=== PATIENT | female | born 1990 | race Two or more races ===

== ENCOUNTER 2019-12-24 22:56 | Emergency (ER) | payer OTHER, SELFPAY ==
[2019-12-24 23:03] VITALS: PULSE 77; RESP 18; TEMP 37.3; BMI 84.8
[2019-12-24 23:15] VITALS: BP 141/78; PULSE 77; RESP 18; TEMP 37.3
--- NOTE | 2019-12-24 23:37 | ED_ITS ---
HPI - Weakness General Chief complaint: Weakness Stated complaint: SICK PERSON , COLLAPSED @ 2200 Time Seen by Provider: 12/24/19 23:10 Source: patient Mode of arrival: ambulatory History of Present Illness HPI Narrative: 29-year-old female states of generalized weakness for 1-2 days. Patient states lost sent to taste also. Denies cough denies shortness of breath denies chest pain denies nausea vomiting diarrhea. Denies fevers or chills patient states overwhelmingly weak to the point where she collapsed however as per family member did not syncopized MD Complaint: generalized weakness Onset (ago): day(s) ( 2 days) Location: generalized Severity: mild Severity scale (1-10): 2 Related Data Allergies Allergy/AdvReac Type Severity Reaction Status Date / Time morphine Allergy Mild ? Verified 12/24/19 23:10 Review of Systems Review of Systems: Constitutional : No Weight loss, No Fever, No Chills, No Night Sweats, No Fatigue, No Malaise ENT/Mouth : No Hearing loss, No Ear Pain, No Nasal Congestion, No Sinus Pain, No Hoarseness, No sore throat, No Rhinorrhea, No Swallowing Difficulty Eyes: No Eye Pain, No Swelling, No Redness, No Foreign Body, No Discharge, No Vision Changes Cardiovascular : No Chest Pain, No SOB, No Dyspnea on Exertion, No Orthopnea, No Edema, No Palpitations Respiratory : No Cough, No Sputum, No Wheezing, No Smoke Exposure, No Dyspnea Gastrointestinal : No Nausea, No Vomiting, No Diarrhea, No Constipation, No abdominal Pain, No Hematochezia, No Melena Genitourinary : no irregular bleeding, No Dysuria, No Urinary Frequency, No H ematuria, No Urinary Incontinence, No Urgency, No Flank Pain, No Urinary Flow Changes, No Hesitancy Musculoskeletal : No joint pain, positive Myalgias, No Joint Swelling Skin : No Skin Lesions, No rash Neuro : No Weakness, No Numbness, No Paresthesias, No Loss of Consciousness, No Dizziness, No Headache Psych : No Anxiety/Panic, No Depression, No SI/HI/AH/VH, No Social Issues, Heme/Lymph: No Bruising, No Bleeding,No Lymphadenopathy Endocrine : No Polyuria, No Polydipsia, No Temperature Intolerance PMF Past Medical History Medical History Hypertension Surgical History No pertinent past surgical history No pertinent past surgical history Social History Social History Smoked in Last 30 Days: No Use of substances other than those prescribed or required for medical reasons: No Advance Directives: No Advance Directives Information Provided: No Physical Exam Vital Signs: Vital Signs: Vital Signs Temp Pulse Resp BP 12/24/19 23:15 99.2 F 77 18 141/78 H 12/24/19 23:03 99.2 F 77 18 Body Mass Index 84.8 vital signs reviewed Appearance: Alert. Oriented X3. No acute distress. Eyes: Pupils equal, round and reactive to light. ENT: Pharynx normal. Neck: Normal inspection. Neck supple. No lymph nodes noted. No crepitus CVS: Normal heart rate and rhythm. Pulses normal. Normal S1 and S2 Respiratory: No respiratory distress. Breath sounds normal. No Wheezing. No rales Abdomen: Soft and nontender. No rigidity. No distention. good BS x4 Skin: Skin warm and dry. Normal skin color. Normal skin turgor. Extremities: No lower extremity edema. Neurovascular intact to all extremities. No Lacerations. No Rash Neuro: Oriented X 3. No motor deficit. No sensory deficit. Moving all extermities. No slurred speech. Course Course Course Narrative: patient feeling much improved tolerating p.o.. I discussed with her self-isolation into COVID test results come back laboratory work reviewed by me MDM - Weakness MDM Narrative Medical decision making narrative: 29-year-old female with generalized weakness myalgias, assume COVID. Laboratory work within normal limits nontoxic-appearing not hypoxic will discharge home with self-isolation Lab Data Result diagrams: 12/24/19 23:28 12/24/19 23:28 Labs: Lab Results 12/24/19 12/24/19 Range/Units 23:28 23:28 WBC 9.5 (4.8-10.8) X10*3/uL RBC 4.08 L (4.20-5.50) X10*6/uL Hgb 11.1 L (12.0-16.0) g/dl Hct 35.9 L (37-47) % MCV 88.0 (80-98) fL MCH 27.2 (27.0-33.0) pg MCHC 30.9 L (31.0-35.0) g/dl RDW 15.4 (11.0-16.0) % Plt Count 268 (160-400) X10*3/uL MPV 10.5 (9.4-12.3) fL Immature Gran % (Auto) 0.4 (0.0-0.4) % Neut % (Auto) 59.1 (45-73) % Lymph % (Auto) 28.7 (20-40) % [place] % (Auto) 9.5 (2-11) % Eos % (Auto) 2.0 (0-4) % Baso % (Auto) 0.3 (0-2) % Lymph # (Auto) 2.7 (1.2-4.9) X10*3/uL [place] # (Auto) 0.9 (0.1-1.2) X10*3/uL Eos # (Auto) 0.2 (0.0-0.4) X10*3/uL Baso # (Auto) 0.0 (0.0-0.2) X10*3/uL Abs Immat Gran (auto) 0.04 H (0.00-0.03) X10*3/uL Absolute Neuts (auto) 5.6 (2.0-8.3) X10*3/uL Absolute Nucleated RBC 0.000 (0.0-0.012) X10*3/uL Nucleated RBC % (auto) 0.0 (0.0-0.2) /100WBC Sodium 139 (135-145) mmol/L Potassium 4.5 (3.3-5.1) mmol/l Chloride 107 (96-108) mmol/L Carbon Dioxide 24 (22-29) mmol/L Anion Gap 13 (12-20) BUN 16 (9-16) mg/dL Creatinine 0.71 (0.5-1.4) mg/dL Estim Creat Clear Calc 195.8 Estimated GFR > 60 Random Glucose 87 (60-115) mg/dL Calcium 8.5 (8.4-10.2) mg/dL Total Bilirubin < 0.2 (0.0-1.0) mg/dL Direct Bilirubin < 0.2 (0.0-0.5) mg/dL AST 14 (5-31) U/L ALT 16 (0-31) U/L Alkaline Phosphatase 70 (39-117) U/L Total Protein 6.7 (6.5-8.0) g/dL Albumin 3.9 (3.5-5.0) g/dL Lipase 21 (8-78) U/L Beta HCG, Quant < 2 mIU/mL Discharge Plan Discharge Clinical Impression: Myalgia, Acute viral syndrome Patient Disposition: Home, Self-Care Instructions: Musculoskeletal Pain (ED), Viral Syndrome (ED) Additional Instructions: CDC Guidelines for home isolation: Follow these instructions until your Covid results return - Stay away from others - Limit contact with pets and animals: If you must care for a pet, wash your hands before and after interacting with them - Wear a mask if you are sick - Cover your mouth and nose with a tissue when you cough or sneeze. Dispose of tissues in a lined trash can and wash your hands immediately with soap and water for at least 20 seconds. If soap and water are not available, clean hands with alcohol-based hand manager ship that contains at least 60% alcohol. - Clean your hands often with soap and water for at least 20 seconds - Avoid touching your eyes, nose and mouth with unwashed hands - Do not share dishes, drinking glasses, cups, eating utensils, towels, or bedding with other people in your home. After using these items, wash them thoroughly with soap and water or put in the catering administrative assistant. - Clean high-touch surfaces in your isolation area ( sick room and bathroom) every day; let a caregiver clean and disinfect high-touch surfaces in other areas of the home. Clean the area or item with soap and water or another detergent if it is dirty. Then, use a household disinfectant. Seek medical attention, but call first: - Seek medical care right away if your illness is worsening (for example, if you have difficulty breathing). - Call your doctor before going in: Before going to the doctor's office or emergency room, call ahead and tell them your symptoms. They will tell you what to do. - If possible, put on a facemask before you enter the building. If you can't put on a facemask, try to keep a safe distance from other people (at least 6 feet away). This will help protect the people in the office or waiting room. - Follow care instructions from your healthcare provider and local health department: Your local health authorities will give instructions on checking your symptoms and reporting information. Emergency warning signs for COVID-19: - Difficulty breathing or shortness of breath - Persistent pain or pressure in the chest - New confusion or inability to arouse - Bluish lips or face Thank you for visiting the emergency department today. If your symptoms worsen or do not resolve completely please return to the emergency department immediately or call 911. if he have any questions please call your primary care physician Referrals: [facility] [Provider Group] - 2 days
[2019-12-24] MEDS: 0.9 % Sodium Chloride 1,000 ML 999 ML IVCONT (23:41)
[2019-12-24 23:48] LABS: MANUAL DIFF FLAG NO
[2019-12-24 23:49] LABS: Basophils Percent Auto 0.3 % (0-2); Eosinophils Absolute Auto 0.2 X10*3/uL (0.0-0.4); Hematocrit 35.9 % (37-47); Hemoglobin 11.1 g/dl (12.0-16.0); Imm Gran Abs Auto 0.04 X10*3/uL (0.00-0.03); Imm Gran Pct Auto 0.4 % (0.0-0.4); Lymphocytes Absolute Auto 2.7 X10*3/uL (1.2-4.9); Lymphocytes Percent Auto 28.7 % (20-40); Mean Corpuscular HGB Conc 30.9 g/dl (31.0-35.0); Mean Corpuscular Hemoglobin 27.2 pg (27.0-33.0); Mean Platelet Volume 10.5 fL (9.4-12.3); Monocytes Absolute Auto 0.9 X10*3/uL (0.1-1.2); Monocytes Percent Auto 9.5 % (2-11); Neutrophils Absolute Auto 5.6 X10*3/uL (2.0-8.3); Neutrophils Percent Auto 59.1 % (45-73); Platelet Count 268 X10*3/uL (160-400); Red Blood Count 4.08 X10*6/uL (4.20-5.50); Red Cell Distribution Width 15.4 % (11.0-16.0); White Blood Count 9.5 X10*3/uL (4.8-10.8)
[2019-12-24] MEDS: ondansetron HCL 4 MG/2 ML VIAL IVPUSH (23:51)
[2019-12-24] MEDS: Ketorolac Tromethamine 30 MG/ML VIAL IM (23:51)
[2019-12-25 00:35] LABS: Alanine Aminotransferase 16 U/L (0-31); Albumin Level 3.9 g/dL (3.5-5.0); Alkaline Phosphatase 70 U/L (39-117); Anion Gap 13 (12-20); Aspartate Amino Transferase 14 U/L (5-31); Bilirubin Direct < 0.2 mg/dL (0.0-0.5); Bilirubin Total < 0.2 mg/dL (0.0-1.0); Blood Urea Nitrogen 16 mg/dL (9-16); Calcium 8.5 mg/dL (8.4-10.2); Carbon Dioxide 24 mmol/L (22-29); Chloride 107 mmol/L (96-108); Creatinine Clr Calc Pharmacy 195.8; Estimated Glomerular Filt Rate > 60; Glucose Random 87 mg/dL (60-115); Lipase 21 U/L (8-78); Potassium 4.5 mmol/l (3.3-5.1); Sodium 139 mmol/L (135-145); Total Protein 6.7 g/dL (6.5-8.0)
[2019-12-25 00:41] LABS: HCG Quantitative < 2 mIU/mL
== END 2019-12-25 01:37 | disposition home or self-care (01) ==
PROVIDERS: Emergency Provider Emergency Medicine
DX: B34.9 Viral infection, unspecified (principal); M79.10 Myalgia, unspecified site; Z20.828 Contact with and (suspected) exposure to other viral communicable diseases
CPT/HCPCS: 36415; 80048; 80076; 83690; 84702; 85025; 87635; 96361; 96372; 96374; 99284; J1885; J2405

== ENCOUNTER 2021-01-02 13:10 | Emergency (ER) | payer OTHER, SELFPAY ==
[2021-01-02 13:24] VITALS: BP 144/106; PULSE 58; RESP 16; TEMP 36.5; O2SAT 99; BMI 52.7
[2021-01-02 14:00] LABS: IDNOW Serial# 08D9AD1C; Strep A Nucleic Acid Negative (Negative)
[2021-01-02 14:03] LABS: COVID-19 Test Negative (Negative)
--- NOTE | 2021-01-02 14:47 | ED.URI ---
HPI - URI/Sore Throat General Chief Complaint: Upper Respiratory Symptoms Stated Complaint: body aches sore throat Time Seen by Provider: 01/02/21 14:05 Source: patient Mode of arrival: ambulatory Limitations: no limitations History of Present Illness MD elicited complaint: cough, sore throat and other (Body aches, loss of taste and smell exposure to COVID) Onset (ago): day(s) (Three days ago) Consistency: constant Able to tolerate fluids by mouth: Yes Exacerbating factors: swallowing Relieving factors: nothing Context: sick contacts Associated symptoms: chills, myalgias, headache, sore throat and cough Treatments prior to arrival: none Related Data Previous Rx's Medication Instructions Recorded acetaminophen 500 mg tablet 1,000 mg PO QID PRN #14 tab 01/02/21 (Tylenol Extra Strength) azithromycin 250 mg tablet See Rx Instructions .ROUTE 01/02/21 .COMPLEX #6 tab cyclobenzaprine 10 mg tablet 10 mg PO Q8H PRN #14 tab 01/02/21 ibuprofen 800 mg tablet 800 mg PO Q8H PRN #14 tab 01/02/21 Allergies Allergy/AdvReac Type Severity Reaction Status Date / Time morphine Allergy Mild ? Verified 01/02/21 13:24 Review of Systems Review of Systems: Constitutional : No Weight loss, No Fever, + Chills, No Night Sweats, + Fatigue, + Malaise ENT/Mouth : No Hearing loss, No Ear Pain, No Nasal Congestion, No Sinus Pain, No Hoarseness, + sore throat, No Rhinorrhea, No Swallowing Difficulty Eyes: No Eye Pain, No Swelling, No Redness, No Foreign Body, No Discharge, No Vision Changes Cardiovascular : No Chest Pain, No SOB, No Dyspnea on Exertion, No Orthopnea, No Edema, No Palpitations Respiratory : + Cough, No Sputum, No Wheezing, No Smoke Exposure, No Dyspnea Gastrointestinal : No Nausea, No Vomiting, No Diarrhea, No Constipation, No abdominal Pain, No Hematochezia, No Melena Genitourinary : no irregular bleeding, No Dysuria, No Urinary Frequency, No Hematuria, No Urinary Incontinence, No Urgency, No Flank Pain, No Urinary Flow Changes, No Hesitancy Musculoskeletal : No joint pain, + Myalgias, No Joint Swelling Skin : No Skin Lesions, No rash Neuro : No Weakness, No Numbness, No Paresthesias, No Loss of Consciousness, No Dizziness, No Headache Psych : No Anxiety/Panic, No Depression, No SI/HI/AH/VH, No Social Issues, Heme/Lymph: No Bruising, No Bleeding,No Lymphadenopathy Endocrine : No Polyuria, No Polydipsia, No Temperature Intolerance Yes all other systems are reviewed and are negative [facility] Past Medical History Attestation statement: The following information was validated with the patient. Medical History Hypertension Surgical History No pertinent past surgical history No pertinent past surgical history Social History Social History Advance Directives: No Advance Directives Information Provided: No Physical Exam Vital Signs: Vital Signs: Last Vital Signs Temp 97.7 F 01/02/21 13:24 Pulse 58 01/02/21 13:24 Resp 16 01/02/21 13:24 BP 144/106 H 01/02/21 13:24 Pulse Ox 99 01/02/21 13:24 Body Mass Index 52.7 vital signs have been reviewed as normal and appeared to be correct. Blood pressure hypertensive at 144/106 Heart rate normal. Respiration rate normal. Temperature normal. Oxygen saturation normal. Appearance: Alert. Oriented X3. No acute distress. Head: Normal external exam. Normocephalic. Atraumatic. Eyes: PERRLA. EOMI. Conjunctiva and sclera normal. Eyelids normal. ENT: EAC normal. TM's Normal. Pharynx normal. Uvula midline. Moist mucous membranes. No trismus noted. No drooling noted. No muffled voice noted. Neck: Normal inspection. Neck supple. FROM. No adenopathy. Thyroid Normal. No meningeal signs. No neck mass noted. CVS: Normal heart rate and rhythm. Heart sound normal. Pulses normal throughout. No murmurs/rales/gallops. Respiratory: No respiratory distress. Painless inspiration. Breath sounds normal. No wheezes/rales/rhonchi noted. Chest nontender. No accessory muscle usage noted or decreased air movement noted. Back: Full range of motion noted. No rashes/lesion/induration/fluctuance or signs of infection noted. Skin: Skin warm and dry. Normal skin color. Normal skin turgor. No rashes/lesions/lacerations noted. Extremities: Extremities exhibit normal range of motion. Extremities nontender. Neuro: Oriented X 3. No motor deficit. No sensory deficit. Reflexes normal. Normal steady gait. No focal neuro deficits noted. Vascular: + radial pulses Normal cap refill. No cyanosis noted to upper extremity nails Course Course Course Narrative: 30-year-old female presenting to the ED with URI symptoms for the past few days worse today. 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 Denies any other symptoms complaints or concerns at this time. Patient's rapid COVID was negative and her rapid strep. 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 Patient understands agrees with this plan. MDM - URI/Sore Throat Medical Records Attestation: I reviewed the patient's medical records. Lab Data Attestation: I reviewed the patient's lab results. Labs: Lab Results 01/02/21 01/02/21 Range/Units 13:43 13:43 COVID-19 ([place]) Negative (Negative) COVID-19 Clin Com See Note S. pyogenes GrpA MAULIK Negative (Negative) Discharge Plan Discharge Clinical Impression: Upper respiratory infection Patient Disposition: Home, Self-Care Instructions: Upper Respiratory Infection (ED) Additional Instructions: Based on your symptoms and history we have sent a COVID-19. Although your RESULT IS PENDING at this time. RESULTS should return within 2-4 hours. At this time you will be contacted with either NEGATIVE OR POSITIVE results. -Please wait until we contact you for your results. At this time you will be okay for discharge. Please plan for self quarantine for up to 14 days. Do not expose yourself to others. You may not go to work. If testing does come back negative you may return to activities as long as you are no longer having any symptoms for at least 3 days. Please continue to follow cold instructions and wash your hands frequently. You may take Tylenol as directed on the bottle for pain or fever. Patient seen in the emergency department on 01/02/2021 and should be excused from work until negative test results AND until 72 hours without any symptoms AND at least 10 days have passed since symptoms first appeared or since last exposure to COVID-19 positive patient CDC Guidelines for home isolation: - Stay away from others - WEAR A MASK if you are sick AND STAY HOME - Cover your mouth and nose with a tissue when you cough or sneeze. Dispose of tissues in a lined trash can and wash your hands immediately with soap and water for at least 20 seconds. If soap and water are not available, clean hands with alcohol-based hand juice bar team member that contains at least 60% alcohol. - Clean your hands often with soap and water for at least 20 seconds - Avoid touching your eyes, nose and mouth with unwashed hands - Do not share dishes, drinking glasses, cups, eating utensils, towels, or bedding with other people in your home. After using these items, wash them thoroughly with soap and water or put in the dental instrument maker. - Clean high-touch surfaces in your isolation area ( sick room and bathroom) every day; let a caregiver clean and disinfect high-touch surfaces in other areas of the home. Clean the area or item with soap and water or another detergent if it is dirty. Then, use a household disinfectant. - Limit contact with pets and animals: If you must care for a pet, wash your hands before and after interacting with them). Prescriptions: New cyclobenzaprine 10 mg tablet 10 mg PO Q8H PRN (Reason: Muscle spasm) Qty: 14 RF: 0 azithromycin 250 mg tablet See Rx Instructions .ROUTE .COMPLEX Qty: 6 RF: 0 ibuprofen 800 mg tablet 800 mg PO Q8H PRN (Reason: pain) Qty: 14 RF: 0 acetaminophen [Tylenol Extra Strength] 500 mg tablet 1,000 mg PO QID PRN (Reason: fever or pain) Qty: 14 RF: 0 Referrals: Physician,None [Primary Care Provider] - 2 days (your pcp) Stand Alone Forms: Work/School Release
[2021-01-02 14:55] LABS: Adenovirus PCR Not Detected (Not Detect.); Bordetella parapertussis PCR Not Detected (Not Detect.); Bordetella pertussis PCR Not Detected (Not Detect.); Chlamydia pneumoniae PCR Not Detected (Not Detect.); Coronavirus 229E PCR Not Detected (Not Detect.); Coronavirus HKU1 PCR Not Detected (Not Detect.); Coronavirus NL63 PCR Not Detected (Not Detect.); Coronavirus OC43 PCR Not Detected (Not Detect.); Human metapneumovirus PCR Not Detected (Not Detect.); Influenza A PCR Not Detected (Not Detect.); Influenza B PCR Not Detected (Not Detect.); Mycoplasma pneumoniae PCR Not Detected (Not Detect.); Parainfluenza 1 PCR Not Detected (Not Detect.); Parainfluenza 2 PCR Not Detected (Not Detect.); Parainfluenza 3 PCR Not Detected (Not Detect.); Parainfluenza 4 PCR Not Detected (Not Detect.); RSV PCR Not Detected (Not Detect.); SARS-CoV-2 PCR Not Detected (Not Detect.)
[2021-01-03 08:04] LABS: Rhino/Enterovirus PCR Detected (Not Detect.)
== END 2021-01-02 16:25 | disposition home or self-care (01) ==
PROVIDERS: Physician Assistant Medical; Emergency Provider Emergency Medicine Emergency Medical Services
DX: J06.9 Acute upper respiratory infection, unspecified (principal); I10 Essential (primary) hypertension; Z20.822 Contact with and (suspected) exposure to COVID-19
CPT/HCPCS: 0241U; 36415; 87633; 87635; 87651; 99283

== ENCOUNTER 2021-01-03 00:45 | Emergency (ER) | payer OTHER, SELFPAY ==
[2021-01-03] VITALS (8 sets, daily range): BP systolic 114–159; BP diastolic 57–94; PULSE 63–88; RESP 18–22; TEMP 36.8–37.1; O2SAT 95–100; BMI 40.4
--- NOTE | 2021-01-03 | ECG_ITS ---
Test Reason : chest pain Blood Pressure : / mmHG Vent. Rate : 089 BPM Atrial Rate : 089 BPM P-R Int : 144 ms QRS Dur : 082 ms QT Int : 390 ms P-R-T Axes : 053 012 023 degrees QTc Int : 474 ms Normal sinus rhythm Normal ECG No previous ECGs available Referred By: Danilo Bucio Electronically Signed By:ABBY MELCHOR MD
--- NOTE | ~2021-01-03 | XR_ITS ---
EXAMINATION: XR CHEST CLINICAL INFORMATION: Shortness of breath COMPARISON: None TECHNIQUE: Frontal view of the chest was obtained. FINDINGS: The lungs are mildly hypoinflated and appear clear without focal consolidation. No evidence of pneumothorax, pleural effusion, or pulmonary edema. The cardiomediastinal contour is unremarkable. No acute osseous findings are seen. XR/XR chest 1V IMPRESSION: No acute cardiopulmonary findings.
--- NOTE | ~2021-01-03 | CT_ITS ---
EXAMINATION: CT SOFT TISSUE NECK WITHOUT CONTRAST CLINICAL INFORMATION: Stridor, throat pain COMPARISON: None TECHNIQUE: Helical imaging was performed in the axial plane with generation of coronal and sagittal reformatted images. This CT examination was performed using dose optimization techniques as appropriate, variously including the following: *Automated exposure control *Adjustment of mA and/or kV according to patient size (this includes techniques or standardized protocols for targeted exams where dose is matched to indication/reason for exam; i.e. extremities or head) *Use of iterative reconstruction technique DLP: 627 mGy-cm FINDINGS: There is a thickened appearance of the vocal folds. Epiglottis appears unremarkable. No significant cervical adenopathy is identified. The parotid glands are homogeneous in attenuation. The submandibular glands are normal. No contour abnormality is seen within the oral cavity or pharyngeal mucosal space. The parapharyngeal fat is preserved. No extra mucosal soft tissue mass or fluid collection is seen, though assessment for this is somewhat limited without intravenous contrast. No retropharyngeal fluid collection is seen. The thyroid gland is normal. The superior mediastinum is unremarkable. The lung apices are clear. The mastoid air cells and visualized portions of the paranasal sinuses are well-aerated. The temporomandibular joints are normal. No osseous abnormalities are seen. The imaged portions of the brain parenchyma are unremarkable. CT/CT soft tissue neck wo con IMPRESSION: Thickened appearance of the vocal folds, suggesting laryngitis in the proper clinical setting. No additional acute findings identified.
--- NOTE | 2021-01-03 01:51 | PC.NURSE ---
This RN asked Munir Alvarenga RN to contact RT to notify of neb orders. Munir attempted to contact RT twice unsuccessfully. This RN to call RT again
--- NOTE | 2021-01-03 01:53 | ED_ITS ---
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-19 in 09/02 last time she saw a COVID patient was 2 weeks ago, patient complaining of pain in the throat difficulty in breathing, dry cough for last 4 days was seen here earlier yesterday COVID test was negative, rapid strep was also negative, lab workup stable comes back because of increased difficulty in breathing wheezing obviously saturating 98% arrival patient was given Zithromax Related Data Previous Rx's Medication Instructions Recorded acetaminophen 500 mg tablet 1,000 mg PO QID PRN #14 tab 01/02/21 (Tylenol Extra Strength) azithromycin 250 mg tablet See Rx Instructions .ROUTE 01/02/21 .COMPLEX #6 tab cyclobenzaprine 10 mg tablet 10 mg PO Q8H PRN #14 tab 01/02/21 ibuprofen 800 mg tablet 800 mg PO Q8H PRN #14 tab 01/02/21 cefuroxime axetil 500 mg tablet 500 mg PO BID #20 tab 01/03/21 codeine 10 mg-guaifenesin 100 mg/5 10 ml PO Q4-6H PRN #237 ml 01/03/21 mL oral liquid prednisone 20 mg tablet 40 mg PO DAILY #10 tab 01/03/21 Allergies Allergy/AdvReac Type Severity Reaction Status Date / Time morphine Allergy Mild ? Verified 01/03/21 02:08 Review of Systems Review of Systems: Yes all other systems are reviewed and are negative [facility] Past Medical History Medical History Hypertension Surgical History No pertinent past surgical history No pertinent past surgical history Social History Social History Advance Directives: No Advance Directives Information Provided: No Patient : No Physical Exam Vital Signs: Vital Signs: Last Vital Signs Temp 98.7 F 01/03/21 06:00 Pulse 78 01/03/21 06:00 Resp 20 01/03/21 06:00 BP 114/60 01/03/21 06:00 Pulse Ox 95 01/03/21 06:00 Body Mass Index 40.4 Appearance: Alert. Oriented X3. In moderate distress Eyes: No pallor or icterus HEENT: Pharynx normal. Oral Mucosa moist stridor++ Neck: Normal inspection. Neck supple. CVS: Normal heart rate and rhythm. Pulses normal. Respiratory: No respiratory distress. Equal air entry bilateral, bilateral wheezing and rhonchi and no crackles Abdomen: Soft and nontender. Bowel sounds are present, no mass palpable, no CVA tenderness Skin: Skin warm and dry. Normal skin color. Normal skin turgor. Extremities: No calf tenderness no edema neuro: Alert and oriented x3 MDM - URI/Sore Throat MDM Narrative Medical decision making narrative: Patient has significant distress and able to speak because of pain voice was muffled had inspiratory stridor. CT scan of the neck done which showed normal epiglotis , likely laryngitis. patient's symptoms improved after IV hydration, racemic epinephrine, IV Rocephin, steroids able to speak well now stridor/wheezing improved will discharge patient home on steroids and Ceftin advised to continue Zithromax Discharge Plan Discharge Clinical Impression: Laryngitis Patient Disposition: Home, Self-Care Instructions: Laryngitis (ED) Additional Instructions: Rest to your throat Take antibiotic as prescribed along with continue Zithromax Prednisone as prescribed Saline gargles Follow with PCP if not better Prescriptions: New prednisone 20 mg tablet 40 mg PO DAILY Qty: 10 RF: 0 codeine-guaifenesin 10-100 mg/5 mL liquid 10 ml PO Q4-6H PRN (Reason: cough) Qty: 237 RF: 0 cefuroxime axetil 500 mg tablet 500 mg PO BID Qty: 20 RF: 0 No Action cyclobenzaprine 10 mg tablet 10 mg PO Q8H PRN (Reason: Muscle spasm) Qty: 14 RF: 0 azithromycin 250 mg tablet See Rx Instructions .ROUTE .COMPLEX Qty: 6 RF: 0 ibuprofen 800 mg tablet 800 mg PO Q8H PRN (Reason: pain) Qty: 14 RF: 0 acetaminophen [Tylenol Extra Strength] 500 mg tablet 1,000 mg PO QID PRN (Reason: fever or pain) Qty: 14 RF: 0
[2021-01-03] MEDS: Magnesium Sulfate/H2O 2 GM/50 ML PIGGYBACK IV (02:02)
[2021-01-03] MEDS: methylPREDNISolone Sod Succ 125 MG/2 ML VIAL IVPUSH (02:02)
[2021-01-03] MEDS: Albuterol/Iprat 2.5/0.5MG 3 ML AMPUL.NEB INHALE (02:06)
[2021-01-03] MEDS: Albuterol Sulfate (0.083%) 2.5 MG/3 ML VIAL.NEB 5 MG INHALE (02:06)
--- NOTE | 2021-01-03 02:44 | PC.NURSE ---
This RN to bedside to reassess. Pt removes neb mask and lurches forward. Pt not answering questions for this RN. Pt's S/O at bedside states chest pain! she's having chest pain! 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 Pt's mag infusion complete. This RN notifies Dr Siu, this RN requests EKG. This RN brings EKG machine to bedside. Pt found ripping off gown, complaining of CP and persistent SOB. Dr Siu made aware, to bedside. Per Dr Siu, pt to have CT of throat to assess swelling. EKG obtained.
--- NOTE | 2021-01-03 02:58 | PC.NURSE ---
Pt did not complete the initial albuterol neb tx. Dr Siu aware that pt rec'd ~40 minutes of hour long tx, states it's OK, I'm going to change her medication order. Dr Siu ordered racemic epi, RT made aware. Pt requested to ambulate to bathroom. Pt ambulated with steady gait, returned to stretcher without incidence. Pt VSS on RA upon return to room, O2 sat 97% on RA.
--- NOTE | 2021-01-03 03:10 | PC.NURSE ---
RT at bedside, administering racemic epi neb
[2021-01-03] MEDS: Racepinephrine HCL 0.5 ML VIAL.NEB INHALE (03:13)
[2021-01-03] MEDS: dexAMETHasone sod phosphate 10 MG/ML VIAL IVPUSH (03:44)
--- NOTE | 2021-01-03 04:39 | PC.NURSE ---
Pt with continued reports of chest pressure /. Pt also reports I feel like I'm having some trouble swallowing. Upon clarification, pt reports it hurts to swallow. Pt remains on night monitor, VSS. Pt also reports her hands feel swollen. Dr Siu made aware.
[2021-01-03] MEDS: cefTRIAXone sodium 1 GM in 0.9 % Sodium Chloride 50 ML IV (04:55)
== END 2021-01-03 06:46 | disposition home or self-care (01) ==
PROVIDERS: Emergency Provider Internal Medicine
DX: J04.0 Acute laryngitis (principal); R06.02 Shortness of breath; Z79.899 Other long term (current) drug therapy; Z20.822 Contact with and (suspected) exposure to COVID-19
CPT/HCPCS: 70490; 71045; 93005; 94640; 94644; 96365; 96367; 96375; 99284; J0696; J1100; J2930; J3475

== ENCOUNTER 2021-01-10 08:55 | Emergency (ER) | payer OTHER, SELFPAY ==
[2021-01-10 09:20] VITALS: BP 131/87; PULSE 85; RESP 19; TEMP 36.6; O2SAT 100; BMI 40.4
--- NOTE | 2021-01-10 10:46 | ED_ITS ---
HPI - Abdominal Pain General Chief Complaint: Abdominal Pain Stated Complaint: sore throat, abd pain, diarrhea Time Seen by Provider: 01/10/21 10:35 Source: patient Mode of arrival: ambulatory Limitations: no limitations History of Present Illness HPI narrative: Patient comes emergency room complaining of diarrhea. Patient states it started approximately 4-5 days ago. Patient states she was seen here 8 days ago, prescribed cefuroxime. For the last 5 days, patient has been having multiple episodes of diarrhea per day, abdominal cramping, no nausea or vomiting. Denies fever chills, continues having sore throat Related Data Previous Rx's Medication Instructions Recorded acetaminophen 500 mg tablet 1,000 mg PO QID PRN #14 tab 01/02/21 (Tylenol Extra Strength) azithromycin 250 mg tablet See Rx Instructions .ROUTE 01/02/21 .COMPLEX #6 tab cyclobenzaprine 10 mg tablet 10 mg PO Q8H PRN #14 tab 01/02/21 ibuprofen 800 mg tablet 800 mg PO Q8H PRN #14 tab 01/02/21 cefuroxime axetil 500 mg tablet 500 mg PO BID #20 tab 01/03/21 codeine 10 mg-guaifenesin 100 mg/5 10 ml PO Q4-6H PRN #237 ml 01/03/21 mL oral liquid prednisone 20 mg tablet 40 mg PO DAILY #10 tab 01/03/21 Allergies Allergy/AdvReac Type Severity Reaction Status Date / Time morphine Allergy Mild ? Verified 01/03/21 02:08 Review of Systems Review of Systems Constitutional : No Weight loss, No Fever, No Chills, No Night Sweats, No Fatigue, No Malaise ENT/Mouth : No Hearing loss, No Ear Pain, No Nasal Congestion, No Sinus Pain, No Hoarseness, complaining of sore throat, No Rhinorrhea, No Swallowing Difficulty Eyes: No Eye Pain, No Swelling, No Redness, No Foreign Body, No Discharge, No Vision Changes Cardiovascular : No Chest Pain, No SOB, No Dyspnea on Exertion, No Orthopnea, No Edema, No Palpitations Respiratory : No Cough, No Sputum, No Wheezing, No Smoke Exposure, No Dyspnea Gastrointestinal : No Nausea, No Vomiting, complaining of diarrhea No Constipation, complaining of diffuse abdominal cramping before having diarrhea, No Hematochezia, No Melena Genitourinary : no irregular bleeding, No Dysuria, No Urinary Frequency, No Hematuria, No Urinary Incontinence, No Urgency, No Flank Pain, No Urinary Flow Changes, No Hesitancy Musculoskeletal : No joint pain, No Myalgias, No Joint Swelling Skin : No Skin Lesions, No rash Neuro : No Weakness, No Numbness, No Paresthesias, No Loss of Consciousness, No Dizziness, No Headache Psych : No Anxiety/Panic, No Depression, No SI/HI/AH/VH, No Social Issues, Heme/Lymph: No Bruising, No Bleeding,No Lymphadenopathy Endocrine : No Polyuria, No Polydipsia, No Temperature Intolerance Physical Exam Vital Signs: Vital Signs: Last Vital Signs Temp 98 F 01/10/21 09:20 Pulse 71 01/10/21 12:00 Resp 16 01/10/21 12:00 BP 106/69 01/10/21 12:00 Pulse Ox 99 01/10/21 12:00 Body Mass Index 40.4 Const: Other: Appearance: Alert. Oriented X3. No acute distress. Eyes: Pupils equal, round and reactive to light. ENT: Pharynx normal. Neck: Normal inspection. Neck supple. No lymph nodes noted. No crepitus CVS: Normal heart rate and rhythm. Pulses normal. Normal S1 and S2 Respiratory: No respiratory distress. Breath sounds normal. No Wheezing. No rales Abdomen: Soft and nontender. No rigidity. No distention. good BS x4 Skin: Skin warm and dry. Normal skin color. Normal skin turgor. Extremities: No lower extremity edema. No lower extremity edema. No Lacerations. No Rash Neuro: Oriented X 3. No motor deficit. No sensory deficit. Moving all extermities. No slurred speech. Course Course Course Narrative: Patient feels better, patient has not had any bowel movement. White blood cell count within normal limits, electrolytes within normal limits. Patient likely having a viral syndrome. Unlikely that patient has C diff MDM - Abdominal Pain Lab Data Result diagrams: 01/10/21 11:21 01/10/21 11:21 Labs: Lab Results 01/10/21 01/10/21 01/10/21 Range/Units 11:21 11:21 11:21 WBC 10.2 (4.8-10.8) X10*3/uL RBC 4.09 L (4.20-5.50) X10*6/uL Hgb 10.7 L (12.0-16.0) g/dl Hct 34.4 L (37-47) % MCV 84.1 (80-98) fL MCH 26.2 L (27.0-33.0) pg MCHC 31.1 (31.0-35.0) g/dl RDW 14.6 (11.0-16.0) % Plt Count 309 (160-400) X10*3/uL MPV 10.1 (9.4-12.3) fL Immature Gran % (Auto) 0.6 H (0.0-0.4) % Neut % (Auto) 65.0 (45-73) % Lymph % (Auto) 24.0 (20-40) % [place] % (Auto) 7.4 (2-11) % Eos % (Auto) 2.6 (0-4) % Baso % (Auto) 0.4 (0-2) % Lymph # (Auto) 2.5 (1.2-4.9) X10*3/uL [place] # (Auto) 0.8 (0.1-1.2) X10*3/uL Eos # (Auto) 0.3 (0.0-0.4) X10*3/uL Baso # (Auto) 0.0 (0.0-0.2) X10*3/uL Abs Immat Gran (auto) 0.06 H (0.00-0.03) X10*3/uL Absolute Neuts (auto) 6.6 (2.0-8.3) X10*3/uL Absolute Nucleated RBC 0.000 (0.0-0.012) X10*3/uL Nucleated RBC % (auto) 0.0 (0.0-0.2) /100WBC Sodium 141 (135-145) mmol/L Potassium 4.3 (3.3-5.1) mmol/L Chloride 105 (96-108) mmol/L Carbon Dioxide 29 (22-29) mmol/L Anion Gap 11 L (12-20) BUN 15 (9-16) mg/dL Creatinine 0.71 (0.5-1.4) mg/dL Estim Creat Clear Calc 118.6 Estimated GFR > 60 Random Glucose 93 (60-115) mg/dL Calcium 9.1 D (8.4-10.2) mg/dL Total Bilirubin 0.2 (0.0-1.0) mg/dL Direct Bilirubin < 0.2 (0.0-0.5) mg/dL AST 16 (5-31) U/L ALT 20 (0-31) U/L Alkaline Phosphatase 87 D (39-117) U/L Total Protein 6.9 (6.5-8.0) g/dL Albumin 4.0 (3.5-5.0) g/dL Urine Color Urine Appearance Urine pH (5.0-8.0) Ur Specific [place] (1.005-1.025) Urine Protein (NEG-TRACE) MG/DL Urine Glucose (UA) (NEG) MG/DL Urine Ketones (NEG) MG/DL Urine Blood (NEG) Urine Nitrite (NEG) Ur Leukocyte Esterase (NEG) COVID-19 ([facility]) (Negative) COVID-19 Clin Com S. pyogenes GrpA MAULIK Negative (Negative) 01/10/21 01/10/21 Range/Units 11:21 13:16 WBC (4.8-10.8) X10*3/uL RBC (4.20-5.50) X10*6/uL Hgb (12.0-16.0) g/dl Hct (37-47) % MCV (80-98) fL MCH (27.0-33.0) pg MCHC (31.0-35.0) g/dl RDW (11.0-16.0) % Plt Count (160-400) X10*3/uL MPV (9.4-12.3) fL Immature Gran % (Auto) (0.0-0.4) % Neut % (Auto) (45-73) % Lymph % (Auto) (20-40) % [place] % (Auto) (2-11) % Eos % (Auto) (0-4) % Baso % (Auto) (0-2) % Lymph # (Auto) (1.2-4.9) X10*3/uL [place] # (Auto) (0.1-1.2) X10*3/uL Eos # (Auto) (0.0-0.4) X10*3/uL Baso # (Auto) (0.0-0.2) X10*3/uL Abs Immat Gran (auto) (0.00-0.03) X10*3/uL Absolute Neuts (auto) (2.0-8.3) X10*3/uL Absolute Nucleated RBC (0.0-0.012) X10*3/uL Nucleated RBC % (auto) (0.0-0.2) /100WBC Sodium (135-145) mmol/L Potassium (3.3-5.1) mmol/L Chloride (96-108) mmol/L Carbon Dioxide (22-29) mmol/L Anion Gap (12-20) BUN (9-16) mg/dL Creatinine (0.5-1.4) mg/dL Estim Creat Clear Calc Estimated GFR Random Glucose (60-115) mg/dL Calcium (8.4-10.2) mg/dL Total Bilirubin (0.0-1.0) mg/dL Direct Bilirubin (0.0-0.5) mg/dL AST (5-31) U/L ALT (0-31) U/L Alkaline Phosphatase (39-117) U/L Total Protein (6.5-8.0) g/dL Albumin (3.5-5.0) g/dL Urine Color YELLOW Urine Appearance CLEAR Urine pH 6.0 (5.0-8.0) Ur Specific [place] 1.020 (1.005-1.025) Urine Protein NEG (NEG-TRACE) MG/DL Urine Glucose (UA) NEG (NEG) MG/DL Urine Ketones NEG (NEG) MG/DL Urine Blood NEG (NEG) Urine Nitrite NEG (NEG) Ur Leukocyte Esterase NEG (NEG) COVID-19 ([place]) Negative (Negative) COVID-19 Clin Com See Note S. pyogenes GrpA MAULIK (Negative) Discharge Plan Discharge Clinical Impression: Diarrhea Qualifiers: Diarrhea type: unspecified type Qualified Code(s): R19.7 - Diarrhea, unspec ified Patient Disposition: Home, Self-Care Instructions: Acute Diarrhea (ED) Additional Instructions: Please follow-up with your primary care physician tomorrow. If you have any worsening or new symptoms, please return to the emergency room or call 911 Prescriptions: No Action cyclobenzaprine 10 mg tablet 10 mg PO Q8H PRN (Reason: Muscle spasm) Qty: 14 RF: 0 azithromycin 250 mg tablet See Rx Instructions .ROUTE .COMPLEX Qty: 6 RF: 0 ibuprofen 800 mg tablet 800 mg PO Q8H PRN (Reason: pain) Qty: 14 RF: 0 acetaminophen [Tylenol Extra Strength] 500 mg tablet 1,000 mg PO QID PRN (Reason: fever or pain) Qty: 14 RF: 0 prednisone 20 mg tablet 40 mg PO DAILY Qty: 10 RF: 0 codeine-guaifenesin 10-100 mg/5 mL liquid 10 ml PO Q4-6H PRN (Reason: cough) Qty: 237 RF: 0 cefuroxime axetil 500 mg tablet 500 mg PO BID Qty: 20 RF: 0 PMFSH Past Medical History Medical History Hypertension Surgical History No pertinent past surgical history No pertinent past surgical history Social History Social History Advance Directives: No Advance Directives Information Provided: Yes Patient : No
[2021-01-10] MEDS: 0.9 % Sodium Chloride 1,000 ML 999 ML IVCONT (11:22)
[2021-01-10 11:25] LABS: MANUAL DIFF FLAG NO
[2021-01-10 11:35] LABS: Basophils Percent Auto 0.4 % (0-2); Eosinophils Absolute Auto 0.3 X10*3/uL (0.0-0.4); Eosinophils Percent Auto 2.6 % (0-4); Hematocrit 34.4 % (37-47); Hemoglobin 10.7 g/dl (12.0-16.0); Imm Gran Abs Auto 0.06 X10*3/uL (0.00-0.03); Imm Gran Pct Auto 0.6 % (0.0-0.4); Lymphocytes Absolute Auto 2.5 X10*3/uL (1.2-4.9); Mean Corpuscular HGB Conc 31.1 g/dl (31.0-35.0); Mean Corpuscular Hemoglobin 26.2 pg (27.0-33.0); Mean Corpuscular Volume 84.1 fL (80-98); Mean Platelet Volume 10.1 fL (9.4-12.3); Monocytes Absolute Auto 0.8 X10*3/uL (0.1-1.2); Monocytes Percent Auto 7.4 % (2-11); Neutrophils Absolute Auto 6.6 X10*3/uL (2.0-8.3); Platelet Count 309 X10*3/uL (160-400); Red Blood Count 4.09 X10*6/uL (4.20-5.50); Red Cell Distribution Width 14.6 % (11.0-16.0); White Blood Count 10.2 X10*3/uL (4.8-10.8)
[2021-01-10 11:43] LABS: Alanine Aminotransferase 20 U/L (0-31); Alkaline Phosphatase 87 U/L (39-117); Anion Gap 11 (12-20); Aspartate Amino Transferase 16 U/L (5-31); Bilirubin Direct < 0.2 mg/dL (0.0-0.5); Bilirubin Total 0.2 mg/dL (0.0-1.0); Blood Urea Nitrogen 15 mg/dL (9-16); Calcium 9.1 mg/dL (8.4-10.2); Carbon Dioxide 29 mmol/L (22-29); Chloride 105 mmol/L (96-108); Creatinine Clr Calc Pharmacy 118.6; Estimated Glomerular Filt Rate > 60; Glucose Random 93 mg/dL (60-115); Potassium 4.3 mmol/L (3.3-5.1); Sodium 141 mmol/L (135-145); Total Protein 6.9 g/dL (6.5-8.0)
[2021-01-10 11:46] LABS: COVID-19 Test Negative (Negative); IDNOW Serial# 9DD0AD1C; Strep A Nucleic Acid Negative (Negative)
[2021-01-10 12:00] VITALS: BP 106/69; PULSE 71; RESP 16; O2SAT 99
[2021-01-10 13:26] LABS: Appearance Urine CLEAR; Color Urine YELLOW; Glucose Urine UA NEG (NEG); Leukocyte Esterase Urine NEG (NEG); Nitrite Urine NEG (NEG); Urine Blood NEG (NEG); Urine Ketones NEG (NEG); Urine Protein NEG (NEG-TRACE)
== END 2021-01-10 14:13 | disposition home or self-care (01) ==
PROVIDERS: Emergency Provider Emergency Medicine
DX: R19.7 Diarrhea, unspecified (principal); J02.9 Acute pharyngitis, unspecified; I10 Essential (primary) hypertension; Z20.822 Contact with and (suspected) exposure to COVID-19
CPT/HCPCS: 36415; 80048; 80076; 81003; 85025; 87635; 87651; 96360; 99283; 99284

== ENCOUNTER 2021-04-19 20:16 | Emergency (ER) | payer OTHER, SELFPAY ==
[2021-04-19 20:32] VITALS: BP 123/81; PULSE 80; RESP 16; TEMP 36.6; O2SAT 97; BMI 40.4
[2021-04-19 21:32] LABS: Appearance Urine HAZY; Color Urine YELLOW; Glucose Urine UA NEG (NEG); Leukocyte Esterase Urine NEG (NEG); Nitrite Urine NEG (NEG); Specific Gravity - Urine 1.025 (1.005-1.025); Urine Blood NEG (NEG); Urine Ketones NEG (NEG); Urine Protein NEG (NEG-TRACE)
[2021-04-19 21:35] LABS: UPreg QC Valid YES; Urine Pregnancy NEGATIVE (NEGATIVE)
[2021-04-19 21:52] LABS: MANUAL DIFF FLAG NO
[2021-04-19 21:53] LABS: Basophils Absolute Auto 0.1 X10*3/uL (0.0-0.2); Basophils Percent Auto 0.4 % (0-2); Eosinophils Absolute Auto 0.2 X10*3/uL (0.0-0.4); Eosinophils Percent Auto 1.6 % (0-4); Hematocrit 33.7 % (37.0-47.0); Hemoglobin 10.1 g/dl (12.0-16.0); Imm Gran Abs Auto 0.05 X10*3/uL (0.00-0.03); Imm Gran Pct Auto 0.4 % (0.0-0.4); Lymphocytes Absolute Auto 2.5 X10*3/uL (1.2-4.9); Lymphocytes Percent Auto 21.9 % (20-40); Mean Corpuscular Hemoglobin 24.6 pg (27.0-33.0); Mean Corpuscular Volume 82.2 fL (80.0-98.0); Mean Platelet Volume 10.5 fL (9.4-12.3); Monocytes Absolute Auto 0.6 X10*3/uL (0.1-1.2); Monocytes Percent Auto 5.1 % (2-11); Neutrophils Absolute Auto 8.2 x10*3/uL (2.0-8.3); Neutrophils Percent Auto 70.6 % (45-73); Platelet Count 364 X10*3/uL (160-400); Red Cell Distribution Width 15.5 % (11.0-16.0); White Blood Count 11.6 X10*3/uL (4.8-10.8)
[2021-04-19 22:11] LABS: Anion Gap 13 (12-20); Blood Urea Nitrogen 17 mg/dL (9-16); Calcium 9.5 mg/dL (8.4-10.2); Carbon Dioxide 30 mmol/L (22-29); Chloride 103 mmol/L (96-108); Estimated Glomerular Filt Rate > 60; Glucose Random 140 mg/dL (60-115); Potassium 4.2 mmol/L (3.3-5.1); Sodium 142 mmol/L (135-145)
[2021-04-19 22:33] VITALS: BP 158/97; PULSE 79; RESP 18; TEMP 36.6; O2SAT 97
--- NOTE | 2021-04-19 23:05 | ED_ITS ---
HPI - Female Genitourinary General Chief complaint: Abdominal Pain Stated complaint: Pelvic pain Time Seen by Provider: 04/19/21 22:28 Source: patient Mode of arrival: ambulatory Limitations: no limitations History of Present Illness HPI Narrative: 31-year-old female who presents emergency department for evaluation of lower abdominal/pelvic pain. She states the pain started on Thursday evening at around 19:00 (6 days prior to evaluation). The pain came on while she was cooking. She states the pain came on gradually and then became approximately 3 hours after onset. She states the pain is been constant and is 9/10 at its worst. She states that on Thursday (4 days prior to evaluation) she had nausea and 3 episodes of vomiting. She denied fever, chills, chest pain, shortness of breath. She states that she has had urinary frequency but no dysuria. She has had no change in bowel movements. She states she had a similar presentation a couple years ago but the pain was not a severe, was more on the right side of her abdomen and pelvis and was secondary to an ovarian cyst. Her last menstrual period is 04/02/2021 and she is sexually active. The patient got the Pfizer COVID-19 booster vaccination in her left arm 1 week prior and developed redness and pain of the left arm which is now resolved. MD elicited complaint: pelvic pain Onset (ago): day(s) (6) Location of symptoms: suprapubic and pelvis Severity: severe Female Urogenital Radiation: Non-Radiating Severity scale (1-10): 9 Quality of pain: stabbing Consistency: constant Vaginal discharge: none Vaginal bleeding: none Urinary symptoms: Frequency Exacerbating factors: none Relieving factors: none Associated symptoms: nausea and vomiting Treatment prior to arrival: none Sexual activity: Yes Patient : No Related Data Previous Rx's Medication Instructions Recorded acetaminophen 500 mg tablet 1,000 mg PO QID PRN #14 tab 01/02/21 (Tylenol Extra Strength) azithromycin 250 mg tablet See Rx Instructions .ROUTE 01/02/21 .COMPLEX #6 tab cyclobenzaprine 10 mg tablet 10 mg PO Q8H PRN #14 tab 01/02/21 ibuprofen 800 mg tablet 800 mg PO Q8H PRN #14 tab 01/02/21 cefuroxime axetil 500 mg tablet 500 mg PO BID #20 tab 01/03/21 codeine 10 mg-guaifenesin 100 mg/5 10 ml PO Q4-6H PRN #237 ml 01/03/21 mL oral liquid prednisone 20 mg tablet 40 mg PO DAILY #10 tab 01/03/21 doxycycline hyclate 100 mg tablet 100 mg PO Q12H 14 Days #28 tab 04/19/21 metronidazole 500 mg tablet 500 mg PO BID 14 Days #28 tab 04/19/21 Allergies Allergy/AdvReac Type Severity Reaction Status Date / Time morphine Allergy Mild ? Verified 01/03/21 02:08 Review of Systems Verdana 4l Review of Systems: Yes all other systems are reviewed and Verdana 4d are negative [facility] Past Medical History [facility] Narrative: Past medical history: Hypertension not treated, anemia. Past surgical history: None. Social history: She denies tobacco use. She occasionally drinks alcohol. She denies drug use. Medical History Hypertension Surgical History No pertinent past surgical history No pertinent past surgical history Social History Social History Advance Directives: No Advance Directives Information Provided: No Patient : No Physical Exam Verdana 4l Vital Signs: Verdana 4d Verdana 4d Vital Signs: Verdana 4d Verdana 4Bd Last Vital Signs Verdana 4d Radiator Repairer New 4d Radiator Repairer New 4d Temp 97.9 F 04/19/21 22:33 Radiator Repairer New 4d Pulse 79 04/19/21 22:33 Radiator Repairer New 4d Resp 18 04/19/21 22:33 BP 158/97 H 04/19/21 22:33 Pulse Ox 97 04/19/21 22:33 BMI result Body Mass Index 40.4 Const: Other: Awake, alert, female patient, BMI 40.4, very pleasant and cooperative, does not appear to be in distress, answers all questions appropriately HENMT: Head: Yes normal to inspection, Yes normocephalic and Yes atraumatic Ears: external ears normal General nose exam: Normal external nose present Face and sinus: Yes normal facial exam Mouth: Normal oral and palatal mucosa present Throat: Yes posterior oropharynx normal Eyes: General: appearance normal, both eyes and all related structures Pupils: Equal, round and reactive pupils present Neck: Neck: Yes normal visual inspection, Yes no lymphadenopathy, Yes trachea midline and Yes supple Chest: Chest palpation & inspection: normal inspection of the chest and normal palpat ion of entire chest wall Resp: Effort & Inspection: normal respiratory effort and able to speak in complete sentences Auscultation: clear to auscultation bilaterally Cardio: Rate: regular rate Rhythm: regular rhythm Heart sounds: S1 normal heart sound present, S2 normal heart sound present and no murmurs GI: Inspection: Yes normal to inspection Palpation (GI): Soft to palpation, Tenderness to palpation present (GI) suprapubicly (Moderate to severe) and no guarding Auscultation: normal bowel sounds : General: Yes no CVA tenderness External Female Exam: normal external appearance Speculum Exam - Vagina: abnormal vaginal discharge white (Thick), no lesions and No vaginal bleeding Speculum Exam - Cervix: Cervical tenderness present (Moderate to severe) and Other cervical findings present (Cervix not visualized) Bimanual exam- vagina & uterus: Cervical tenderness present (Moderate to severe), cervical motion tenderness (Moderate to severe) and Uterine tenderness (Moderate to severe) Bimanual Exam- Adnexa, other: tender (Moderate) OB/external & speculum: No vaginal bleeding Back/Spine/Pelvis: Back: no CVA tenderness Skin: General skin exam: no rashes or lesions noted Neuro: Cranial nerves: Yes CN's II-XII intact bilaterally and Yes Equal, round and reactive pupils present Cognition (Neuro): normal cognition Motor exam (neuro): 5/5 motor strength present throughout Extrem: General: Yes normal to inspection Psych: Appearance: grossly normal Speech and movement: Normal speech and movement present Affect: normal affect Attitude: cooperative Thought process: Normal thought process present Thought content: Normal thought content present Course Course Course Narrative: 31-year-old female who presents emergency department for evaluation of lower abdominal pelvic pain x6 days which came on gradually and has been constant, 11/23, patient has had urinary frequency but no dysuria, she had 1 day of nausea and vomiting, no fever or chills. Vital signs were karlos except for an elevated blood pressure of 158/97, the patient has a history of hypertension this not taking medications. Abdominal exam did reveal suprapubic tenderness. Pelvic exam did reveal a vaginal discharge with significant cervical, cervical motion , uterine and adnexal tenderness. Patient's laboratory evaluation revealed minor anemia with an H&H of 10 and 33.7. Urinalysis was negative. Urine test was negative. Patient's presentation findings are consistent with pelvic inflammatory disease. Patient was treated with ceftriaxone 500 mg IM, doxycycline 100 mg orally and Flagyl 500 mg orally here in the emergency department. Patient was given prescription for doxycycline 100 mg twice a day for 14 days, Flagyl 500 mg twice a day for 14 days. She was advised to take Tylenol ibuprofen for pain. She will need to follow-up with a boxing promoter in 10-14 days to follow up on her culture results and make sure that she sufficiently treated. She was given printed and verbal instructions and discharged home. MDM - Female Genitourinary Lab Data Result diagrams: 04/19/21 21:23 04/19/21 21:23 Labs: Lab Results 04/19/21 04/19/21 04/19/21 Range/Units 20:59 20:59 21:23 WBC 11.6 H (4.8-10.8) X10*3/uL RBC 4.10 L (4.20-5.50) X10*6/uL Hgb 10.1 L (12.0-16.0) g/dl Hct 33.7 L (37.0-47.0) % MCV 82.2 (80.0-98.0) fL MCH 24.6 L (27.0-33.0) pg MCHC 30.0 L (31.0-35.0) g/dl RDW 15.5 (11.0-16.0) % Plt Count 364 (160-400) X10*3/uL MPV 10.5 (9.4-12.3) fL Immature Gran % (Auto) 0.4 (0.0-0.4) % Neut % (Auto) 70.6 (45-73) % Lymph % (Auto) 21.9 (20-40) % [place] % (Auto) 5.1 (2-11) % Eos % (Auto) 1.6 (0-4) % Baso % (Auto) 0.4 (0-2) % Lymph # (Auto) 2.5 (1.2-4.9) X10*3/uL [place] # (Auto) 0.6 (0.1-1.2) X10*3/uL Eos # (Auto) 0.2 (0.0-0.4) X10*3/uL Baso # (Auto) 0.1 (0.0-0.2) X10*3/uL Abs Immat Gran (auto) 0.05 H (0.00-0.03) X10*3/uL Absolute Neuts (auto) 8.2 (2.0-8.3) x10*3/uL Absolute Nucleated RBC 0.000 (0.0-0.012) X10*3/uL Nucleated RBC % (auto) 0.0 (0.0-0.2) /100WBC Sodium (135-145) mmol/L Potassium (3.3-5.1) mmol/L Chloride (96-108) mmol/L Carbon Dioxide (22-29) mmol/L Anion Gap (12-20) BUN (9-16) mg/dL Creatinine (0.5-1.4) mg/dL Estim Creat Clear Calc Estimated GFR Random Glucose (60-115) mg/dL Calcium (8.4-10.2) mg/dL Urine Color YELLOW Urine Appearance HAZY Urine pH 6.0 (5.0-8.0) Ur Specific [place] 1.025 (1.005-1.025) Urine Protein NEG (NEG-TRACE) MG/DL Urine Glucose (UA) NEG (NEG) MG/DL Urine Ketones NEG (NEG) MG/DL Urine Blood NEG (NEG) Urine Nitrite NEG (NEG) Ur Leukocyte Esterase NEG (NEG) Urine Test NEGATIVE (NEGATIVE) 04/19/21 Range/Units 21:23 WBC (4.8-10.8) X10*3/uL RBC (4.20-5.50) X10*6/uL Hgb (12.0-16.0) g/dl Hct (37.0-47.0) % MCV (80.0-98.0) fL MCH (27.0-33.0) pg MCHC (31.0-35.0) g/dl RDW (11.0-16.0) % Plt Count (160-400) X10*3/uL MPV (9.4-12.3) fL Immature Gran % (Auto) (0.0-0.4) % Neut % (Auto) (45-73) % Lymph % (Auto) (20-40) % [place] % (Auto) (2-11) % Eos % (Auto) (0-4) % Baso % (Auto) (0-2) % Lymph # (Auto) (1.2-4.9) X10*3/uL [place] # (Auto) (0.1-1.2) X10*3/uL Eos # (Auto) (0.0-0.4) X10*3/uL Baso # (Auto) (0.0-0.2) X10*3/uL Abs Immat Gran (auto) (0.00-0.03) X10*3/uL Absolute Neuts (auto) (2.0-8.3) x10*3/uL Absolute Nucleated RBC (0.0-0.012) X10*3/uL Nucleated RBC % (auto) (0.0-0.2) /100WBC Sodium 142 (135-145) mmol/L Potassium 4.2 (3.3-5.1) mmol/L Chloride 103 (96-108) mmol/L Carbon Dioxide 30 H (22-29) mmol/L Anion Gap 13 (12-20) BUN 17 H (9-16) mg/dL Creatinine 0.81 (0.5-1.4) mg/dL Estim Creat Clear Calc 103.0 Estimated GFR > 60 Random Glucose 140 H (60-115) mg/dL Calcium 9.5 (8.4-10.2) mg/dL Urine Color Urine Appearance Urine pH (5.0-8.0) Ur Specific [place] (1.005-1.025) Urine Protein (NEG-TRACE) MG/DL Urine Glucose (UA) (NEG) MG/DL Urine Ketones (NEG) MG/DL Urine Blood (NEG) Urine Nitrite (NEG) Ur Leukocyte Esterase (NEG) Urine Test (NEGATIVE) Discharge Plan Discharge Clinical Impression: Acute pelvic inflammatory disease (PID) Patient Disposition: Home, Self-Care Additional Instructions: Pelvic inflammatory disease (PID) discharge instructions: Your presentation and physical findings are consistent with pelvic inflammatory disease (PID). Your cervix was hard to visualize, you do have a vaginal discharge, you had significant cervical motion tenderness and tenderness with palpation of your pelvic structures (uterus and fallopian tubes) on the bimanual exam. Approximately 30% of the time, pelvic inflammatory disease is caused by sexually transmitted diseases such as Trichomonas, gonorrhea or chlamydia. Approximately 70% of the time, pelvic inflammatory disease is caused by abnormal bacteria (anaerobic bacteria) in your vagina that can cause an infection You received ceftriaxone 500 mg intramuscularly here in the emergency department Take doxycycline 100 mg, 1 pill twice a day for 14 days. Take metronidazole 500 mg, 1 pill twice a day for 14 days. These 3 antibiotics treat sexually transmitted diseases such as gonorrhea, chlamydia and Trichomonas as well as anaerobic bacteria that can cause pelvic inflammatory disease. Take ibuprofen 200 mg pills, 3 pills every 6 hours as needed for 4 days then as needed for pain. Take Tylenol (acetaminophen) 500 mg pills, 2 pills every 4 to 6 hours as needed for pain. Follow-up with your gynecology in 10-14 days. If your boxing promoter cannot see you, [facility] also [facility] The doctor that follows up will need to review the following results with you: Bacterial vaginosis testing Gonorrhea and chlamydia (cervical swab and urine testing) Trichomonas testing You can also check these results on the patient portal pain If your gonorrhea or chlamydia tests are positive, then your doctor should test you for syphilis and for HIV as well. If your gonorrhea or chlamydia tests are positive, then your sexual partner/partners will need to be treated as well. Do not have sex/intercourse until you have completed the antibiotics and you know the result of your gonorrhea and chlamydia tests. Please return to the emergency department if your symptoms get worse or if you develop any symptoms that are concerning to you. Prescriptions: New metronidazole 500 mg tablet 500 mg PO BID 14 Days Qty: 28 0RF doxycycline hyclate 100 mg tablet 100 mg PO Q12H 14 Days Qty: 28 0RF No Action cyclobenzaprine 10 mg tablet 10 mg PO Q8H PRN (Reason: Muscle spasm) Qty: 14 0RF azithromycin 250 mg tablet See Rx Instructions .ROUTE .COMPLEX Qty: 6 0RF Rx Instructions: take 500 mg today (day 1), then 250 mg for 4 days (days 2-5) ibuprofen 800 mg tablet 800 mg PO Q8H PRN (Reason: pain) Qty: 14 0RF acetaminophen [Tylenol Extra Strength] 500 mg tablet 1,000 mg PO QID PRN (Reason: fever or pain) Qty: 14 0RF prednisone 20 mg tablet 40 mg PO DAILY Qty: 10 0RF codeine-guaifenesin 10-100 mg/5 mL liquid 10 ml PO Q4-6H PRN (Reason: cough) Qty: 237 0RF cefuroxime axetil 500 mg tablet 500 mg PO BID Qty: 20 0RF
[2021-04-19] MEDS: metroNIDAZOLE 500 MG TABLET PO (23:24)
[2021-04-19] MEDS: cefTRIAXone sodium 1 GM, Lidocaine HCl 1 % MPF 2.1 ML IM (23:24)
--- NOTE | 2021-04-19 23:36 | PC.NURSE ---
PELVIC EXAM PERFORMED BR DOCTOR CRISTINA WITH RN WITNESS.
[2021-04-20 05:23] LABS: CT PCR NOT DETECTED (Not Detect.); NG PCR NOT DETECTED (Not Detect.)
[2021-04-20 12:28] LABS: BV Int Neg Control Negative (Negative); BV Int Pos Control Positive (Positive)
== END 2021-04-19 23:39 | disposition home or self-care (01) ==
PROVIDERS: Emergency Provider Emergency Medicine Emergency Medical Services
DX: N73.0 Acute parametritis and pelvic cellulitis (principal); I10 Essential (primary) hypertension
CPT/HCPCS: 36415; 80048; 81003; 81025; 85025; 87480; 87491; 87510; 87591; 87660; 96372; 99283; 99284; J0696

== ENCOUNTER 2021-06-06 22:10 | Emergency (ER) | payer OTHER, SELFPAY ==
[2021-06-06 22:17] VITALS: BP 145/91; PULSE 81; RESP 18; TEMP 37.1; O2SAT 98; BMI 37.7
== END 2021-06-07 01:33 | disposition left against medical advice (07) ==
PROVIDERS: Emergency Provider Emergency Medicine
DX: M54.50 Low back pain, unspecified (principal)
CPT/HCPCS: 99281; 99282

== ENCOUNTER 2021-06-14 02:28 | Emergency (ER) | payer OTHER, SELFPAY ==
[2021-06-14 02:31] VITALS: BP 167/87; PULSE 87; RESP 16; TEMP 37.2; O2SAT 99; BMI 38.5
[2021-06-14 02:50] LABS: Appearance Urine CLEAR; Color Urine YELLOW; Glucose Urine UA NEG (NEG); Leukocyte Esterase Urine NEG (NEG); Nitrite Urine NEG (NEG); Specific Gravity - Urine 1.025 (1.005-1.025); Urine Blood NEG (NEG); Urine Ketones NEG (NEG); Urine Protein NEG (NEG-TRACE)
[2021-06-14 02:51] LABS: RBC Urine 0 /HPF (0); WBC Urine 0 /HPF (0-4)
[2021-06-14 02:52] LABS: UPreg QC Valid YES; Urine Pregnancy NEGATIVE (NEGATIVE)
[2021-06-14 03:11] VITALS: BP 137/76; PULSE 82; RESP 18; TEMP 37.2; O2SAT 98
--- NOTE | 2021-06-14 03:12 | ED_ITS ---
HPI - Female Genitourinary General Chief complaint: Urogenital-Female Stated complaint: Uro gen female Time Seen by Provider: 06/14/21 03:11 Source: patient Mode of arrival: ambulatory History of Present Illness HPI Narrative: 31-year-old female who presents with crampy like suprapubic pain that began last night and has not been associated with any fever, chills, nausea, vomiting, diarrhea and denies any urinary pain/ burning / frequency. Patient feels that it is related with her upcoming menstruation and states that the pain is sig nificant. Related Data Previous Rx's Medication Instructions Recorded acetaminophen 500 mg tablet 1,000 mg PO QID PRN #14 tab 01/02/21 (Tylenol Extra Strength) azithromycin 250 mg tablet See Rx Instructions .ROUTE 01/02/21 .COMPLEX #6 tab cyclobenzaprine 10 mg tablet 10 mg PO Q8H PRN #14 tab 01/02/21 ibuprofen 800 mg tablet 800 mg PO Q8H PRN #14 tab 01/02/21 cefuroxime axetil 500 mg tablet 500 mg PO BID #20 tab 01/03/21 codeine 10 mg-guaifenesin 100 mg/5 10 ml PO Q4-6H PRN #237 ml 01/03/21 mL oral liquid prednisone 20 mg tablet 40 mg PO DAILY #10 tab 01/03/21 doxycycline hyclate 100 mg tablet 100 mg PO Q12H 14 Days #28 tab 04/19/21 metronidazole 500 mg tablet 500 mg PO BID 14 Days #28 tab 04/19/21 Allergies Allergy/AdvReac Type Severity Reaction Status Date / Time morphine Allergy Mild ? Verified 06/06/21 22:16 Review of Systems Review of Systems: Pertinent positives and negatives as stated in HPI 10 point review of systems is otherwise negative. [facility] Past Medical History Source: nursing notes reviewed Medical History Hypertension Surgical History No pertinent past surgical history No pertinent past surgical history Social History Social History Advance Directives: No Advance Directives Information Provided: Yes Physical Exam Vital Signs: Vital Signs: Last Vital Signs Temp 98.9 F 06/14/21 03:11 Pulse 82 04/01/22 03:11 Resp 18 06/14/21 03:11 BP 137/76 06/14/21 03:11 Pulse Ox 98 06/14/21 03:11 BMI result Body Mass Index 38.5 VITAL SIGNS: Reviewed. GENERAL: Well developed, well nourished, in no acute distress. HEAD: Normocephalic/atraumatic EYES: PERRLA, EOMI EARS: Ext canals without abnormality OROPHARYNX: no oral lesions noted, posterior pharynx clear LUNGS: Normal breath sounds. No adventitious sounds or accessory muscle use. SpO2<98> CARDIOVASCULAR: Regular rate and rhythm without noted murmurs ABDOMEN: Soft, Minimal tenderness on superficial palpation, no rebound, non- distended with bowel sounds. MUSCULOSKELETAL: No tenderness, deformities, or effusions noted on gross inspection. EXTREMITIES: No cyanosis, clubbing or edema. SKIN: Inspection of the skin reveals no rashes NEUROLOGIC: Alert and oriented x 4. Strength and sensation to light touch were g rossly intact x 4. Course Course Course Narrative: 31-year-old female with history and clinical presentation suggestive of possible UTI, renal colic, ectopic. Review of all investigations without acute findings and on re-evaluation patient reports improvement after having received combination analgesics. She is otherwise discharged home in stable condition with presumptive menstrual cramps. No evidence to suggest appendicitis. MDM - Female Genitourinary Lab Data Result diagrams: 06/14/21 03:17 06/14/21 03:17 Labs: Lab Results 06/14/21 06/14/21 06/14/21 Range/Units 02:41 02:41 03:17 WBC 11.2 H (4.8-10.8) X10*3/uL RBC 3.92 L (4.20-5.50) X10*6/uL Hgb 9.4 L (12.0-16.0) g/dl Hct 30.9 L (37.0-47.0) % MCV 78.8 L (80.0-98.0) fL MCH 24.0 L (27.0-33.0) pg MCHC 30.4 L (31.0-35.0) g/dl RDW 16.3 H (11.0-16.0) % Plt Count 289 (160-400) X10*3/uL MPV 10.6 (9.4-12.3) fL Immature Gran % (Auto) 0.4 (0.0-0.4) % Neut % (Auto) 66.9 (45-73) % Lymph % (Auto) 22.5 (20-40) % [place] % (Auto) 9.4 (2-11) % Eos % (Auto) 0.4 (0-4) % Baso % (Auto) 0.4 (0-2) % Lymph # (Auto) 2.5 (1.2-4.9) X10*3/uL [place] # (Auto) 1.1 (0.1-1.2) X10*3/uL Eos # (Auto) 0.1 (0.0-0.4) X10*3/uL Baso # (Auto) 0.0 (0.0-0.2) X10*3/uL Abs Immat Gran (auto) 0.04 H (0.00-0.03) X10*3/uL Absolute Neuts (auto) 7.5 (2.0-8.3) x10*3/uL Absolute Nucleated RBC 0.000 (0.0-0.012) X10*3/uL Nucleated RBC % (auto) 0.0 (0.0-0.2) /100WBC Sodium (135-145) mmol/L Potassium (3.3-5.1) mmol/L Chloride (96-108) mmol/L Carbon Dioxide (22-29) mmol/L Anion Gap (12-20) BUN (9-16) mg/dL Creatinine (0.5-1.4) mg/dL Estim Creat Clear Calc Estimated GFR Random Glucose (60-115) mg/dL Calcium (8.4-10.2) mg/dL Total Bilirubin (0.0-1.0) mg/dL AST (5-31) U/L ALT (0-31) U/L Alkaline Phosphatase (39-117) U/L Total Protein (6.5-8.0) g/dL Albumin (3.5-5.0) g/dL Urine Color YELLOW Urine Appearance CLEAR Urine pH 6.0 (5.0-8.0) Ur Specific Rowdy 1.025 (1.005-1.025) Urine Protein NEG (NEG-TRACE) MG/DL Urine Glucose (UA) NEG (NEG) MG/DL Urine Ketones NEG (NEG) MG/DL Urine Blood NEG (NEG) Urine Nitrite NEG (NEG) Ur Leukocyte Esterase NEG (NEG) Urine RBC 0 (0) /HPF Urine WBC 0 (0-4) /HPF Ur Squamous Epith Cells NONE /LPF Urine Bacteria NONE /LPF Urine Test NEGATIVE (NEGATIVE) 06/14/21 Range/Units 03:17 WBC (4.8-10.8) X10*3/uL RBC (4.20-5.50) X10*6/uL Hgb (12.0-16.0) g/dl Hct (37.0-47.0) % MCV (80.0-98.0) fL MCH (27.0-33.0) pg MCHC (31.0-35.0) g/dl RDW (11.0-16.0) % Plt Count (160-400) X10*3/uL MPV (9.4-12.3) fL Immature Gran % (Auto) (0.0-0.4) % Neut % (Auto) (45-73) % Lymph % (Auto) (20-40) % [place] % (Auto) (2-11) % Eos % (Auto) (0-4) % Baso % (Auto) (0-2) % Lymph # (Auto) (1.2-4.9) X10*3/uL [place] # (Auto) (0.1-1.2) X10*3/uL Eos # (Auto) (0.0-0.4) X10*3/uL Baso # (Auto) (0.0-0.2) X10*3/uL Abs Immat Gran (auto) (0.00-0.03) X10*3/uL Absolute Neuts (auto) (2.0-8.3) x10*3/uL Absolute Nucleated RBC (0.0-0.012) X10*3/uL Nucleated RBC % (auto) (0.0-0.2) /100WBC Sodium 138 (135-145) mmol/L Potassium 3.9 (3.3-5.1) mmol/L Chloride 104 (96-108) mmol/L Carbon Dioxide 26 (22-29) mmol/L Anion Gap 12 (12-20) BUN 15 (9-16) mg/dL Creatinine 0.93 (0.5-1.4) mg/dL Estim Creat Clear Calc 87.2 Estimated GFR > 60 Random Glucose 101 (60-115) mg/dL Calcium 9.1 (8.4-10.2) mg/dL Total Bilirubin 0.2 (0.0-1.0) mg/dL AST 15 (5-31) U/L ALT 17 (0-31) U/L Alkaline Phosphatase 85 (39-117) U/L Total Protein 7.0 (6.5-8.0) g/dL Albumin 4.1 (3.5-5.0) g/dL Urine Color Urine Appearance Urine pH (5.0-8.0) Ur Specific Rowdy (1.005-1.025) Urine Protein (NEG-TRACE) MG/DL Urine Glucose (UA) (NEG) MG/DL Urine Ketones (NEG) MG/DL Urine Blood (NEG) Urine Nitrite (NEG) Ur Leukocyte Esterase (NEG) Urine RBC (0) /HPF Urine WBC (0-4) /HPF Ur Squamous Epith Cells /LPF Urine Bacteria /LPF Urine Test (NEGATIVE) Discharge Plan Discharge Clinical Impression: Menstrual pain Patient Disposition: Home, Self-Care Instructions: Dysmenorrhea (ED) Additional Instructions: Recommend [id number] Tylenol/ ibuprofen as needed for pain control. Consider heating pad for additional symptom relief as well. Return to the ER for worsening symptoms. Prescriptions: No Action cyclobenzaprine 10 mg tablet 10 mg PO Q8H PRN (Reason: Muscle spasm) Qty: 14 0RF azithromycin 250 mg tablet See Rx Instructions .ROUTE .COMPLEX Qty: 6 0RF Rx Instructions: take 500 mg today (day 1), then 250 mg for 4 days (days 2-5) ibuprofen 800 mg tablet 800 mg PO Q8H PRN (Reason: pain) Qty: 14 0RF acetaminophen [Tylenol Extra Strength] 500 mg tablet 1,000 mg PO QID PRN (Reason: fever or pain) Qty: 14 0RF prednisone 20 mg tablet 40 mg PO DAILY Qty: 10 0RF codeine-guaifenesin 10-100 mg/5 mL liquid 10 ml PO Q4-6H PRN (Reason: cough) Qty: 237 0RF cefuroxime axetil 500 mg tablet 500 mg PO BID Qty: 20 0RF metronidazole 500 mg tablet 500 mg PO BID 14 Days Qty: 28 0RF doxycycline hyclate 100 mg tablet 100 mg PO Q12H 14 Days Qty: 28 0RF
[2021-06-14 03:22] LABS: MANUAL DIFF FLAG NO
[2021-06-14 03:23] LABS: Basophils Percent Auto 0.4 % (0-2); Eosinophils Absolute Auto 0.1 X10*3/uL (0.0-0.4); Eosinophils Percent Auto 0.4 % (0-4); Hematocrit 30.9 % (37.0-47.0); Hemoglobin 9.4 g/dl (12.0-16.0); Imm Gran Abs Auto 0.04 X10*3/uL (0.00-0.03); Imm Gran Pct Auto 0.4 % (0.0-0.4); Lymphocytes Absolute Auto 2.5 X10*3/uL (1.2-4.9); Lymphocytes Percent Auto 22.5 % (20-40); Mean Corpuscular HGB Conc 30.4 g/dl (31.0-35.0); Mean Corpuscular Volume 78.8 fL (80.0-98.0); Mean Platelet Volume 10.6 fL (9.4-12.3); Monocytes Absolute Auto 1.1 X10*3/uL (0.1-1.2); Monocytes Percent Auto 9.4 % (2-11); Neutrophils Absolute Auto 7.5 x10*3/uL (2.0-8.3); Neutrophils Percent Auto 66.9 % (45-73); Platelet Count 289 X10*3/uL (160-400); Red Blood Count 3.92 X10*6/uL (4.20-5.50); Red Cell Distribution Width 16.3 % (11.0-16.0); White Blood Count 11.2 X10*3/uL (4.8-10.8)
[2021-06-14 03:43] LABS: Alanine Aminotransferase 17 U/L (0-31); Albumin Level 4.1 g/dL (3.5-5.0); Alkaline Phosphatase 85 U/L (39-117); Anion Gap 12 (12-20); Aspartate Amino Transferase 15 U/L (5-31); Bilirubin Total 0.2 mg/dL (0.0-1.0); Blood Urea Nitrogen 15 mg/dL (9-16); Calcium 9.1 mg/dL (8.4-10.2); Carbon Dioxide 26 mmol/L (22-29); Chloride 104 mmol/L (96-108); Creatinine Clr Calc Pharmacy 87.2; Estimated Glomerular Filt Rate > 60; Glucose Random 101 mg/dL (60-115); Potassium 3.9 mmol/L (3.3-5.1); Sodium 138 mmol/L (135-145)
[2021-06-14 03:49] LABS: HCG Quantitative < 2 mIU/mL
[2021-06-14] MEDS: Acetaminophen 325 MG TABLET 975 MG PO (03:58)
[2021-06-14] MEDS: Ibuprofen 400 MG TABLET PO (03:58)
== END 2021-06-14 04:05 | disposition home or self-care (01) ==
PROVIDERS: Emergency Provider Student in an Organized Health Care Education/Training Program
DX: N94.6 Dysmenorrhea, unspecified (principal); I10 Essential (primary) hypertension; Z79.899 Other long term (current) drug therapy
CPT/HCPCS: 36415; 80053; 81001; 81025; 84702; 85025; 99283; 99284

== ENCOUNTER 2021-07-04 20:19 | Emergency (ER) | payer OTHER, SELFPAY ==
--- NOTE | ~2021-07-04 | US_ITS ---
EXAMINATION: US VENOUS ULTRASOUND WITH DOPPLER LOWER EXTREMITY, BILATERAL CLINICAL INFORMATION: Swelling, calf pain COMPARISON: None TECHNIQUE: Ultrasound of the deep veins is performed from the hip to the calf with compression sonography and color and pulse Doppler assessment. Spectral analysis with color-flow imaging is performed. FINDINGS: RIGHT: There is normal venous compression and respiratory variation and augmented flow. The visualized common femoral vein, superficial femoral vein, profunda femoral vein, popliteal vein, and the trifurcation region shows no evidence of deep venous thrombosis. There is no significant popliteal fossa cyst. LEFT: There is normal venous compression and respiratory variation and augmented flow. The visualized common femoral vein, superficial femoral vein, profunda femoral vein, popliteal vein, and the trifurcation region shows no evidence of deep venous thrombosis. There is no significant popliteal fossa cyst. If the patient's symptoms persist, followup ultrasound in 5 days 7 days might be of value to exclude proximal propagation from a non-visualized calf vein. US/US venous duplex LE BI IMPRESSION: No DVT demonstrated in the bilateral lower extremity.
--- NOTE | ~2021-07-04 | XR_ITS ---
EXAMINATION: XR KNEE, RIGHT CLINICAL INFORMATION: Knee pain. COMPARISON: None TECHNIQUE: Two views of the right knee. FINDINGS: Bones and soft tissues are normal. No fracture or joint effusion. Alignment is anatomic. Joint spaces are well maintained. No abnormal soft tissue calcification. XR/XR knee RT 2V IMPRESSION: Normal right knee.
--- NOTE | ~2021-07-04 | XR_ITS ---
EXAMINATION: XR KNEE, LEFT CLINICAL INFORMATION: Knee pain COMPARISON: None TECHNIQUE: Four views of the left knee. FINDINGS: Bones and soft tissues are normal. No fracture or joint effusion. Alignment is anatomic. Joint spaces are well maintained. No abnormal soft tissue calcification. XR/XR knee LT 2V IMPRESSION: Normal left knee.
[2021-07-04 20:56] VITALS: BP 167/111; PULSE 80; RESP 18; TEMP 36.3; O2SAT 99; BMI 38.0
--- NOTE | 2021-07-04 22:12 | ED_ITS ---
HPI - Extremity Injury (Lower) General Chief Complaint: Extremity Injury, Lower Stated Complaint: Knee pain Time Seen by Provider: 07/04/21 21:32 Source: patient Mode of arrival: ambulatory Limitations: no limitations History of Present Illness HPI Narrative: This is a 31-year-old female history of hypertension presenting to the emergency department with complaints of bilateral knee pain times week and half. Patient tells me the left knee hurts from the knee down and then the right knee hurts a lot but the whole entire leg hurts. She reports bilateral lower extremity swelling. Patient tells me that the pain is a sharp stabbing pain to bilateral knees. 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 She tells me that the only time she does not have pain is at night when she is sleeping. Patient is not on control, denies long travel, no history of DVT or PE. She denies chest pain, shortness of breath, nausea, vomiting, abdominal pain, fevers, chills. Patient denies trauma. MD complaint: other (Bilateral knee pain) Onset (ago): week(s) (1.5) Severity: severe Severity scale (1-10): 10 Relieving factors: nothing Exacerbating factors: movement Other symptoms: none Related Data Previous Rx's Medication Instructions Recorded acetaminophen 500 mg tablet 1,000 mg PO QID PRN #14 tab 01/02/21 (Tylenol Extra Strength) azithromycin 250 mg tablet See Rx Instructions .ROUTE 01/02/21 .COMPLEX #6 tab cyclobenzaprine 10 mg tablet 10 mg PO Q8H PRN #14 tab 01/02/21 ibuprofen 800 mg tablet 800 mg PO Q8H PRN #14 tab 01/02/21 cefuroxime axetil 500 mg tablet 500 mg PO BID #20 tab 01/03/21 codeine 10 mg-guaifenesin 100 mg/5 10 ml PO Q4-6H PRN #237 ml 01/03/21 mL oral liquid prednisone 20 mg tablet 40 mg PO DAILY #10 tab 01/03/21 doxycycline hyclate 100 mg tablet 100 mg PO Q12H 14 Days #28 tab 04/19/21 metronidazole 500 mg tablet 500 mg PO BID 14 Days #28 tab 04/19/21 cyclobenzaprine 10 mg tablet 10 mg PO BEDTIME PRN #7 tab 07/04/21 naproxen 500 mg tablet 500 mg PO BID #14 tab 07/04/21 Allergies Allergy/AdvReac Type Severity Reaction Status Date / Time morphine Allergy Mild ? Verified 06/06/21 22:16 Review of Systems Review of Systems: Constitutional : No Weight loss, No Fever, No Chills, No Fatigue, No Malaise ENT/Mouth : No sore throat, No Rhinorrhea Eyes: No Eye Pain, No Swelling, No Redness Cardiovascular : No Chest Pain, No SOB, No Dyspnea on Exertion, No Orthopnea, No Edema, No Palpitations Respiratory : No Cough, No Sputum, No Wheezing Gastrointestinal : No Nausea, No Vomiting, No Diarrhea, No Constipation, No abdominal Pain, No Hematochezia, No Melena Genitourinary : No Dysuria, No Urinary Frequency, No Hematuria, Musculoskeletal : + joint pain, No Myalgias, No Joint Swelling Skin : No Skin Lesions, No rash Neuro : No Weakness, No Numbness, No Dizziness, No Headache Psych : No Anxiety/Panic, No Depression All other systems reviewed and are negative Yes all other systems are reviewed and are negative [facility] Past Medical History Attestation statement: The following information was validated with the patient. Source: old records reviewed and nursing notes reviewed Medical History Hypertension Surgical History No pertinent past surgical history No pertinent past surgical history Social History Social History Advance Directives: No Physical Exam Vital Signs: Vital Signs: Last Vital Signs Temp 98.2 F 07/04/21 23:04 Pulse 65 07/04/21 23:04 Resp 16 07/04/21 23:04 BP 132/87 07/04/21 23:04 Pulse Ox 100 07/04/21 23:04 BMI result Body Mass Index 38.0 Patient is noted to be hypertensive. Appearance: Alert.? Oriented X3.? No acute distress.? Head: Normocephalic, atraumatic, no step-offs or deformities Eyes: Pupils equal, round and reactive to light.? ENT: Pharynx normal.? Neck: Normal inspection.? Neck supple.? CVS: Normal heart rate and rhythm.? Pulses normal.? Respiratory: No respiratory distress.? Breath sounds normal.? Abdomen: Soft and nontender.? Skin: Skin warm and dry.? Normal skin color.? Normal skin turgor.? Extremities: No lower extremity edema.? + pain with palpation of left calf, no pain on the right. 5/5 strength to bilateral upper and lower extremities + full range of motion to bilateral knees however painful. Back: No midline tenderness, no C-spine tenderness, full range of motion, no CVA tenderness bilaterally Neuro: Oriented X 3.? No motor deficit.? No sensory deficit. CN 2-12 intact Course Reevaluation(s) Reevaluation #1: Ultrasound of bilateral lower extremities with no demonstration of DVT. X-rays of bilateral knees within normal limits. At this time will give Toradol and do an ambulatory trial. History and physical exam not consistent with septic joints, unlikely an effusion, Time: 23:08 Reevaluation #2: After Toradol patient is able to ambulate, with a limp, offered her crutches however she does not want them she tells me that she will fall if she uses them. I will discharge patient home on cyclobenzaprine and naproxen. Advised her to follow-up with orthopedics if symptoms persist past 2 weeks. No evidence signs of ligament or tendon involvement. Comfortable with discharge home with PCP and Ortho follow-up as needed. 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 Sensory and motor intact to bilateral upper and lower extremities. Patient tells me she is in too much pain to walk. Plan at this time is imaging. Very low risk for DVT. Medical Records Attestation: I reviewed the patient's medical records. Lab Data Attestation: I reviewed the patient's lab results. Critical Care Time Critical Care Time Critical Care Time: No Discharge Plan Discharge Clinical Impression: Bilateral knee pain Patient Disposition: Home, Self-Care Instructions: Knee Pain (ED), Heat Pack Application (ED), Warm Compress or Soak (ED) Additional Instructions: Take your medications as prescribed. If you were prescribed antibiotics today, it is important that you take your medication to their entirety, do not skip any doses, do not finish them early. Follow-up with your primary care provider this week. Follow-up with orthopedics in a week or 2 if symptoms do not improve. Return to the emergency department with new or worsening symptoms. Such as fevers, chills, chest pain, shortness of breath, nausea, vomiting, dizziness, headache, vision changes, lethargy In case of emergency call 911 Cyclobenzaprine as a muscle relaxer that has been sent to your pharmacy, this can make you sleepy, please do not take this while driving or operating machinery. Prescriptions: New cyclobenzaprine 10 mg tablet 10 mg PO BEDTIME PRN (Reason: muscle spasm) Qty: 7 0RF naproxen 500 mg tablet 500 mg PO BID Qty: 14 0RF No Action cyclobenzaprine 10 mg tablet 10 mg PO Q8H PRN (Reason: Muscle spasm) Qty: 14 0RF azithromycin 250 mg tablet See Rx Instructions .ROUTE .COMPLEX Qty: 6 0RF Rx Instructions: take 500 mg today (day 1), then 250 mg for 4 days (days 2-5) ibuprofen 800 mg tablet 800 mg PO Q8H PRN (Reason: pain) Qty: 14 0RF acetaminophen [Tylenol Extra Strength] 500 mg tablet 1,000 mg PO QID PRN (Reason: fever or pain) Qty: 14 0RF prednisone 20 mg tablet 40 mg PO DAILY Qty: 10 0RF codeine-guaifenesin 10-100 mg/5 mL liquid 10 ml PO Q4-6H PRN (Reason: cough) Qty: 237 0RF cefuroxime axetil 500 mg tablet 500 mg PO BID Qty: 20 0RF metronidazole 500 mg tablet 500 mg PO BID 14 Days Qty: 28 0RF doxycycline hyclate 100 mg tablet 100 mg PO Q12H 14 Days Qty: 28 0RF Referrals: [facility] [Provider Group] - 2 weeks Physician,Unknown J [Primary Care Provider] - 2 days Stand Alone Forms: Work/School Release
[2021-07-04 23:04] VITALS: BP 132/87; PULSE 65; RESP 16; TEMP 36.8; O2SAT 100
[2021-07-04] MEDS: Ketorolac Tromethamine 30 MG/ML VIAL IM (23:18)
== END 2021-07-05 00:22 | disposition home or self-care (01) ==
PROVIDERS: Emergency Provider Internal Medicine
DX: M25.562 Pain in left knee (principal); M25.561 Pain in right knee; R60.0 Localized edema; Z79.899 Other long term (current) drug therapy
CPT/HCPCS: 73560; 93970; 96372; 99284; J1885

== ENCOUNTER 2021-07-26 07:32 | Emergency (ER) | payer OTHER, SELFPAY ==
[2021-07-26 07:41] VITALS: BP 135/98; PULSE 90; RESP 17; TEMP 37.1; O2SAT 98; BMI 34.2
[2021-07-26 08:04] LABS: IDNOW Serial# 08D9AD1C; Strep A Nucleic Acid Negative (Negative)
[2021-07-26 08:13] LABS: COVID-19 Test Negative (Negative); IDNOW Serial# 16C4AD1C; Influenza A Positive (Negative); Influenza B2 Negative (Negative)
--- NOTE | 2021-07-26 08:19 | ED.GENADULT ---
HPI - General Adult General Chief complaint: General Medical Stated complaint: body aches/fever/sore throat Time Seen by Provider: 07/26/21 08:19 Source: patient Mode of arrival: ambulatory Limitations: no limitations History of Present Illness MD complaint: flu like symptoms Onset (ago): day(s) (4) Location: head and mouth Radiation: non-radiation Severity: moderate Quality: aching, dull and constant Pain Consistency: intermittent Relieving factors: none Exacerbating factors: none Associated symptoms: fever/chills, headaches, loss of appetite and malaise Treatments prior to arrival: NSAID Related Data Previous Rx's Medication Instructions Recorded acetaminophen 500 mg tablet 1,000 mg PO QID PRN #14 tab 01/02/21 (Tylenol Extra Strength) azithromycin 250 mg tablet See Rx Instructions .ROUTE 01/02/21 .COMPLEX #6 tab cyclobenzaprine 10 mg tablet 10 mg PO Q8H PRN #14 tab 01/02/21 ibuprofen 800 mg tablet 800 mg PO Q8H PRN #14 tab 01/02/21 cefuroxime axetil 500 mg tablet 500 mg PO BID #20 tab 01/03/21 codeine 10 mg-guaifenesin 100 mg/5 10 ml PO Q4-6H PRN #237 ml 01/03/21 mL oral liquid prednisone 20 mg tablet 40 mg PO DAILY #10 tab 01/03/21 doxycycline hyclate 100 mg tablet 100 mg PO Q12H 14 Days #28 tab 04/19/21 metronidazole 500 mg tablet 500 mg PO BID 14 Days #28 tab 04/19/21 cyclobenzaprine 10 mg tablet 10 mg PO BEDTIME PRN #7 tab 07/04/21 naproxen 500 mg tablet 500 mg PO BID #14 tab 07/04/21 Allergies Allergy/AdvReac Type Severity Reaction Status Date / Time morphine Allergy Mild ? Verified 06/06/21 22:16 Review of Systems Review of Systems: Constitutional : positive Fever, positive Chills, positive fatigue, positive Malaise ENT/Mouth : positive sore throat, positive runny nose Eyes: No Discharge Cardiovascular : No Chest Pain, No SOB Respiratory : No Cough, No Sputum Gastrointestinal : No Nausea, No Vomiting, No Diarrhea Genitourinary : No Dysuria, No Urinary Frequency Musculoskeletal : positive Myalgia Skin : No rash Neuro : No Headache PMFSH Past Medical History Attestation statement: The following information was validated with the patient. Medical History Hypertension Surgical History No pertinent past surgical history No pertinent past surgical history Social History Social History (Updated 07/26/21 @ 08:23 by Adrienne Toussaint DO) Patient Tobacco Use Status: Never used Tobacco Use of substances other than those prescribed or required for medical reasons: No Advance Directives: Yes Advance Directives Information Provided: Yes Advance Directives on File: No Physical Exam ED Vital Signs: Vital Signs - 24 hr 07/26/21 07:41 Temperature 98.8 F Pulse Rate 90 Respiratory Rate 17 Blood Pressure 135/98 H Pulse Oximetry 98 BMI result Body Mass Index 34.2 Appearance: Alert. Oriented X3. No acute distress. Eyes: Pupils equal, round and reactive to light. ENT: Pharynx mild erythema. Normal TMs bilaterally Neck: Normal inspection. Neck supple. CVS: Normal heart rate and rhythm. Pulses normal. Respiratory: No respiratory distress. Breath sounds normal. Abdomen: Soft and non-tender. Skin: Skin warm and dry. Normal skin color. Normal skin turgor. Extremities: No lower extremity edema. Neuro: Oriented X 3. No motor deficit. No sensory deficit. Medical Decision Making MDM Narrative Medical decision making narrative: 31 yo female otherwise healthy not toxic stable VS symptoms x 5 days - flu A positive, supportive care and meds at home. work note - able to tolerate PO. 98% on RA. Lab Data Labs: Lab Results 07/26/21 07/26/21 07/26/21 Range/Units 07:46 07:46 07:46 COVID-19 ([facility]) Negative (Negative) COVID-19 Clin Com See Note Influenza Type A ([facility]) Positive A (Negative) Influenza Type B ([facility]) Negative (Negative) Influenza A & B Note See Note S. pyogenes GrpA [facility] Negative (Negative) Discharge Plan Discharge Clinical Impression: Influenza A Patient Disposition: Home, Self-Care Instructions: Influenza (ED) Additional Instructions: return to ED for any worsening symptoms or concerns stay hydrated, tylenol and motrin for fevers and pain Prescriptions: No Action cyclobenzaprine 10 mg tablet 10 mg PO Q8H PRN (Reason: Muscle spasm) Qty: 14 0RF azithromycin 250 mg tablet See Rx Instructions .ROUTE .COMPLEX Qty: 6 0RF Rx Instructions: take 500 mg today (day 1), then 250 mg for 4 days (days 2-5) ibuprofen 800 mg tablet 800 mg PO Q8H PRN (Reason: pain) Qty: 14 0RF acetaminophen [Tylenol Extra Strength] 500 mg tablet 1,000 mg PO QID PRN (Reason: fever or pain) Qty: 14 0RF prednisone 20 mg tablet 40 mg PO DAILY Qty: 10 0RF codeine-guaifenesin 10-100 mg/5 mL liquid 10 ml PO Q4-6H PRN (Reason: cough) Qty: 237 0RF cefuroxime axetil 500 mg tablet 500 mg PO BID Qty: 20 0RF metronidazole 500 mg tablet 500 mg PO BID 14 Days Qty: 28 0RF doxycycline hyclate 100 mg tablet 100 mg PO Q12H 14 Days Qty: 28 0RF cyclobenzaprine 10 mg tablet 10 mg PO BEDTIME PRN (Reason: muscle spasm) Qty: 7 0RF naproxen 500 mg tablet 500 mg PO BID Qty: 14 0RF Stand Alone Forms: Work/School Release
== END 2021-07-26 08:32 | disposition home or self-care (01) ==
PROVIDERS: Emergency Provider Emergency Medicine
DX: J10.1 Influenza due to other identified influenza virus with other respiratory manifestations (principal); I10 Essential (primary) hypertension; Z20.822 Contact with and (suspected) exposure to COVID-19
CPT/HCPCS: 87502; 87635; 87651; 99283

== ENCOUNTER 2021-09-18 14:06 | Emergency (ER) | payer OTHER, SELFPAY ==
[2021-09-18 14:23] VITALS: PULSE 73; RESP 18; TEMP 36.6; O2SAT 100; BMI 36.1
[2021-09-18 14:28] LABS: MANUAL DIFF FLAG NO
[2021-09-18 14:30] LABS: Basophils Percent Auto 0.4 % (0-2); Eosinophils Absolute Auto 0.1 X10*3/uL (0.0-0.4); Eosinophils Percent Auto 1.2 % (0-4); Hematocrit 31.3 % (37.0-47.0); Hemoglobin 9.2 g/dl (12.0-16.0); Imm Gran Abs Auto 0.05 X10*3/uL (0.00-0.03); Imm Gran Pct Auto 0.5 % (0.0-0.4); Lymphocytes Absolute Auto 2.2 X10*3/uL (1.2-4.9); Lymphocytes Percent Auto 21.7 % (20-40); Mean Corpuscular HGB Conc 29.4 g/dl (31.0-35.0); Mean Corpuscular Hemoglobin 22.6 pg (27.0-33.0); Mean Corpuscular Volume 76.9 fL (80.0-98.0); Mean Platelet Volume 9.6 fL (9.4-12.3); Monocytes Absolute Auto 0.8 X10*3/uL (0.1-1.2); Monocytes Percent Auto 7.7 % (2-11); Neutrophils Percent Auto 68.5 % (45-73); Platelet Count 356 X10*3/uL (160-400); Red Blood Count 4.07 X10*6/uL (4.20-5.50); Red Cell Distribution Width 17.2 % (11.0-16.0); White Blood Count 10.1 X10*3/uL (4.8-10.8)
[2021-09-18 14:46] LABS: UPreg QC Valid YES; Urine Pregnancy NEGATIVE (NEGATIVE)
[2021-09-18 14:47] LABS: Appearance Urine CLEAR; Color Urine YELLOW; Glucose Urine UA NEG (NEG); Leukocyte Esterase Urine NEG (NEG); Nitrite Urine NEG (NEG); Specific Gravity - Urine >= 1.030 (1.005-1.025); Urine Blood NEG (NEG); Urine Ketones NEG (NEG); Urine Protein NEG (NEG-TRACE)
[2021-09-18 14:51] LABS: Alanine Aminotransferase 22 U/L (0-31); Albumin Level 4.3 g/dL (3.5-5.0); Alkaline Phosphatase 95 U/L (39-117); Anion Gap 11 (12-20); Aspartate Amino Transferase 19 U/L (5-31); Bilirubin Total 0.2 mg/dL (0.0-1.0); Blood Urea Nitrogen 17 mg/dL (9-16); Calcium 9.3 mg/dL (8.4-10.2); Carbon Dioxide 28 mmol/L (22-29); Chloride 106 mmol/L (96-108); Creatinine Clr Calc Pharmacy 96.6; Estimated Glomerular Filt Rate > 60; Glucose Random 100 mg/dL (60-115); Potassium 4.8 mmol/L (3.3-5.1); Sodium 140 mmol/L (135-145); Total Protein 7.5 g/dL (6.5-8.0)
== END 2021-09-18 20:05 | disposition left against medical advice (07) ==
PROVIDERS: Emergency Provider Emergency Medicine
DX: R10.9 Unspecified abdominal pain (principal); I10 Essential (primary) hypertension
CPT/HCPCS: 36415; 80053; 81003; 81025; 85025; 99282; 99283

== ENCOUNTER 2021-10-08 22:01 | Emergency (ER) | payer OTHER, SELFPAY ==
--- NOTE | ~2021-10-08 | CT_ITS ---
EXAMINATION: CT HEAD WITHOUT CONTRAST CLINICAL INFORMATION: Headache for 4 days COMPARISON: None TECHNIQUE: Contiguous axial imaging was performed from the skull base to vertex without intravenous administration of contrast. This CT examination was performed using dose optimization techniques as appropriate, variously including the following: *Automated exposure control *Adjustment of mA and/or kV according to patient size (this includes techniques or standardized protocols for targeted exams where dose is matched to indication/reason for exam; i.e. extremities or head) *Use of iterative reconstruction technique DLP: 719 mGy-cm FINDINGS: There is no evidence of acute intracranial hemorrhage or territorial infarction. No abnormal mass effect or midline shift is seen. Willson to white matter differentiation is well preserved. No extra-axial fluid collections are identified. The ventricles are normal in size. There is no abnormal attenuation within the brain parenchyma. The osseous structures and soft tissues are normal. The mastoid air cells and visualized portions of the paranasal sinuses are well aerated. CT/CT head/brain wo con IMPRESSION: No acute intracranial pathology.
[2021-10-08 22:14] VITALS: BP 149/99; PULSE 94; O2SAT 96; BMI 38.4
[2021-10-08 22:17] VITALS: BP 123/78; PULSE 60; RESP 18; TEMP 36.6; O2SAT 100
--- NOTE | 2021-10-08 22:18 | ED_ITS ---
HPI - Chest Pain General Chief Complaint: Chest Pain Stated Complaint: headache, chest pain Time Seen by Provider: 10/08/21 22:18 Source: patient and EMS Mode of arrival: EMS Limitations: no limitations History of Present Illness HPI narrative: Patient is a 31 year old female presenting to the emergency department today with a headache and resolved chest pain. Patient states that she has had a headache since that hasn't gotten better and today developed chest pain that went away. Patient states that the ambulance gave her nitro and aspirin. Patient denies any current dizziness, lightheadedness, abdominal pain, nausea, vomiting, fever, chills, blurry vision, double vision, loss of vision, chest pain, difficulty breathing, shortness of breath, back pain, night sweats, pain with urination, increased urinary frequency, increased urinary urgency, blood in her urine or stool, syncope or a near syncopal episode, recent trauma or falls, bowel incontinence, bladder incontinence, bowel retention, bladder retention, or any other complaints at this time. Pain radiation: none Relieving factors: nothing Exacerbating factors: nothing Treatment prior to arrival: none Related Data Previous Rx's Medication Instructions Recorded acetaminophen 500 mg tablet 1,000 mg PO QID PRN fever or pain 01/02/21 (Tylenol Extra Strength) #14 tabs azithromycin 250 mg tablet See Rx Instructions PO .COMPLEX #6 01/02/21 tabs cyclobenzaprine 10 mg tablet 10 mg PO Q8H PRN Muscle spasm #14 01/02/21 tabs ibuprofen 800 mg tablet 800 mg PO Q8H PRN pain #14 tabs 01/02/21 cefuroxime axetil 500 mg tablet 500 mg PO BID #20 tabs 01/03/21 codeine 10 mg-guaifenesin 100 mg/5 10 ml PO Q4-6H PRN cough #237 mL 01/03/21 mL oral liquid prednisone 20 mg tablet 40 mg PO DAILY #10 tabs 01/03/21 doxycycline hyclate 100 mg tablet 100 mg PO Q12H 14 days #28 tabs 04/19/21 metronidazole 500 mg tablet 500 mg PO BID 14 days #28 tabs 04/19/21 cyclobenzaprine 10 mg tablet 10 mg PO BEDTIME PRN muscle spasm 07/04/21 #7 tabs naproxen 500 mg tablet 500 mg PO BID #14 tabs 07/04/21 Allergies Allergy/AdvReac Type Severity Reaction Status Date / Time morphine Allergy Mild Rash Verified 09/18/21 14:23 Review of Systems Constitutional: Constitutional: Reports no additional constitutional complaints, Denies chills, Denies fever(s), Reports headache(s) and Denies night sweats Eyes: Eyes: Reports no additional eye complaints, Denies blurry vision, Denies change in vision, Denies diplopia, Denies eye discharge, Denies loss of vision and Denies eye pain ENT: Denies dizziness and Reports headache(s) Cardiovascular: Cardiovascular: Reports no additional cardiovascular complaints, Denies chest pain, Denies lightheadedness, Denies Loss of Consciousness and Denies dyspnea Respiratory: Respiratory: Reports no additional respiratory complaints and Denies dyspnea Gastrointestinal: Gastrointestinal: Reports no additional gastrointestinal complaints, Denies abdominal pain, Denies melena, Denies hematochezia, Denies change in bowel habits and Denies change in stool character Genitourinary: Genitourinary: Denies hematuria, Denies urinary frequency, Denies dysuria, Denies urinary incontinence, Denies urinary hesitancy and Denies urinary urgency Musculoskeletal: Musculoskeletal: Reports no additional musculoskeletal complaints, Denies numbness and Denies tingling Neurologic: Denies dizziness, Reports headache(s), Denies loss of vision, Denies numbness and Denies tingling Psychiatric: Psychiatric: Reports no additional psychiatric complaints Endocrine: Endocrine: Reports no additional endocrine complaints Hematologic/Lymphatic: Hematologic/Lymphatic: Reports no additional hematologic/lymphatic complaints Allergic/Immunologic: Allergic/Immunologic: Reports no additional allergic/immunologic complaints FOR[facility] Past Medical History Attestation statement: The following information was validated with the patient. Source: old records reviewed Medical History Hypertension Surgical History No pertinent past surgical history No pertinent past surgical history Social History Social History Alcohol intake: current Alcohol intake frequency: holidays/special occasions only Patient Tobacco Use Status: Never used Tobacco Use of substances other than those prescribed or required for medical reasons: No Advance Directives: No Advance Directives Information Provided: No Physical Exam Vital Signs: Vital Signs: Last Vital Signs Temp 98 F 10/08/21 22:17 Pulse 48 L 10/09/21 00:12 Resp 16 10/09/21 00:12 BP 123/78 10/08/21 22:17 Pulse Ox 100 10/09/21 00:12 O2 Del Method 10/09/21 00:12 BMI result Body Mass Index 38.4 Const: General: cooperative, no acute distress, alert and awake Nutritional Appearance: well nourished Orientation/consciousness: patient oriented x3 Limitations: no limitations HEENT: Head: Yes normal to inspection and Yes atraumatic Ears: hearing grossly normal bilaterally and external ears normal General nose exam: Normal external nose present, no nasal discharge noted and no epistaxis Face and sinus: Yes normal facial exam, No abrasion and No laceration Mouth: Normal oral and palatal mucosa present, no drooling and no muffled voice Eyes: General: appearance normal, both eyes and all related structures Periorbital: periorbital findings normal Eyelids: Yes eyelids normal Co njunctivae: conjunctivae normal Pupils: Equal, round and reactive pupils present EOM: EOMs intact bilaterally Neck: Neck: Yes normal visual inspection, Yes full ROM and Yes no lymp hadenopathy Chest: Chest palpation & inspection: normal inspection of the chest Resp: Effort & Inspection: normal respiratory effort and able to speak in complete sentences Auscultation: clear to auscultation bilaterally Cardio: Rate: bradycardic Rhythm: regular rhythm GI: Inspection: Yes normal to inspection Neuro: General: patient oriented x3 and moves all extremities Cranial nerves: Yes Equal, round and reactive pupils present Cognition (Neuro): normal cognition Motor exam (neuro): 5/5 motor strength present throughout Sensory Exam: Normal double simultaneous stimulation for sensation Coordination: [id number] test normal Extrem: General: Yes normal to inspection, Yes full ROM and Yes capillary refill normal Psych: Appearance: grossly normal Mental Status: mental status grossly normal Affect: normal affect Attitude: cooperative Thought process: Normal thought process present Thought content: Normal thought content present Insight: Good insight present (Psych) MDM - Chest Pain MDM Narrative Medical decision making narrative: Patient is a 31 year old female presenting to the emergency department today with a headache. Patient's physical exam was unremarkable including a normal neurological examination. Patient's blood work showed a chronically low HGB at 9.2. Patient's EKG showed sinus bradycardia. Patient's head CT showed no acute process. I explained my physical exam findings as well as all test results to the patient. I answered all questions asked by the patient. Patient received IV Bendaryl, Toradol, and Zofran which she stated helped her symptoms significantly. I stressed the importance of the patient taking her medication as prescribed. I stressed the importance of the patient following up with her primary care provider and a car body designer. I stressed the importance of the patient returning to the emergency department immediately if her symptoms were to worsen or if she were to develop any dizziness, shortness of breath, dif ficulty breathing, chest pain, blurry vision, loss of vision, nausea, vomiting, abdominal pain, fever, chills, back pain, or any other complaints. Patient verbalized agreement and understanding with this treatment plan and discharge. Medical Records Data Attestation: I reviewed the patient's medical records. Lab Data Attestation: I reviewed the patient's lab results. Result diagrams: 10/08/21 22:50 10/08/21 22:50 Labs: Lab Results 10/08/21 10/08/21 10/08/21 Range/Units 22:50 22:50 22:50 WBC 10.0 (4.8-10.8) X10*3/uL RBC 4.07 L (4.20-5.50) X10*6/uL Hgb 9.2 L (12.0-16.0) g/dl Hct 31.0 L (37.0-47.0) % MCV 76.2 L (80.0-98.0) fL MCH 22.6 L (27.0-33.0) pg MCHC 29.7 L (31.0-35.0) g/dl RDW 17.7 H (11.0-16.0) % Plt Count 349 (160-400) X10*3/uL MPV 9.9 (9.4-12.3) fL Immature Gran % (Auto) 0.3 (0.0-0.4) % Neut % (Auto) 62.1 (45-73) % Lymph % (Auto) 28.9 (20-40) % [place] % (Auto) 6.8 (2-11) % Eos % (Auto) 1.4 (0-4) % Baso % (Auto) 0.5 (0-2) % Lymph # (Auto) 2.9 (1.2-4.9) X10*3/uL [place] # (Auto) 0.7 (0.1-1.2) X10*3/uL Eos # (Auto) 0.1 (0.0-0.4) X10*3/uL Baso # (Auto) 0.1 (0.0-0.2) X10*3/uL Abs Immat Gran (auto) 0.03 (0.00-0.03) X10*3/uL Absolute Neuts (auto) 6.2 (2.0-8.3) x10*3/uL Absolute Nucleated RBC 0.000 (0.0-0.012) X10*3/uL Nucleated RBC % (auto) 0.0 (0.0-0.2) /100WBC Sodium 140 (135-145) mmol/L Potassium 3.8 D (3.3-5.1) mmol/L Chloride 104 (96-108) mmol/L Carbon Dioxide 28 (22-29) mmol/L Anion Gap 12 (12-20) BUN 14 (9-16) mg/dL Creatinine 0.79 (0.5-1.4) mg/dL Estim Creat Clear Calc 102.5 Estimated GFR > 60 Random Glucose 93 (60-115) mg/dL Calcium 9.1 (8.4-10.2) mg/dL Magnesium 2.0 (1.6-2.6) mg/dL Total Bilirubin 0.2 (0.0-1.0) mg/dL AST 24 (5-31) U/L ALT 22 (0-31) U/L Alkaline Phosphatase 88 (39-117) U/L Troponin I High Sens < 3.5 (<3.5-17.0) ng/L Total Protein 7.6 (6.5-8.0) g/dL Albumin 4.4 (3.5-5.0) g/dL COVID-19 ([facility]) (Negative) COVID-19 Clin Com 10/08/21 Range/Units 22:50 WBC (4.8-10.8) X10*3/uL RBC (4.20-5.50) X10*6/uL Hgb (12.0-16.0) g/dl Hct (37.0-47.0) % MCV (80.0-98.0) fL MCH (27.0-33.0) pg MCHC (31.0-35.0) g/dl RDW (11.0-16.0) % Plt Count (160-400) X10*3/uL MPV (9.4-12.3) fL Immature Gran % (Auto) (0.0-0.4) % Neut % (Auto) (45-73) % Lymph % (Auto) (20-40) % [place] % (Auto) (2-11) % Eos % (Auto) (0-4) % Baso % (Auto) (0-2) % Lymph # (Auto) (1.2-4.9) X10*3/uL [place] # (Auto) (0.1-1.2) X10*3/uL Eos # (Auto) (0.0-0.4) X10*3/uL Baso # (Auto) (0.0-0.2) X10*3/uL Abs Immat Gran (auto) (0.00-0.03) X10*3/uL Absolute Neuts (auto) (2.0-8.3) x10*3/uL Absolute Nucleated RBC (0.0-0.012) X10*3/uL Nucleated RBC % (auto) (0.0-0.2) /100WBC Sodium (135-145) mmol/L Potassium (3.3-5.1) mmol/L Chloride (96-108) mmol/L Carbon Dioxide (22-29) mmol/L Anion Gap (12-20) BUN (9-16) mg/dL Creatinine (0.5-1.4) mg/dL Estim Creat Clear Calc Estimated GFR Random Glucose (60-115) mg/dL Calcium (8.4-10.2) mg/dL Magnesium (1.6-2.6) mg/dL Total Bilirubin (0.0-1.0) mg/dL AST (5-31) U/L ALT (0-31) U/L Alkaline Phosphatase (39-117) U/L Troponin I High Sens (<3.5-17.0) ng/L Total Protein (6.5-8.0) g/dL Albumin (3.5-5.0) g/dL COVID-19 ([facility]) Negative (Negative) COVID-19 Clin Com See Note Imaging Data CT scan - head: Attestation: I personally reviewed and interpreted this imaging study as follows: My impression: No acute process. Radiologist's impression: EXAMINATION: CT HEAD WITHOUT CONTRAST CLINICAL INFORMATION: Headache for 4 days? COMPARISON: None TECHNIQUE: Contiguous axial imaging was performed from the skull base to vertex without intravenous administration of contrast. This CT examination was performed using dose optimization techniques as appropriate, variously including the following: *Automated exposure control *Adjustment of mA and/or kV according to patient size (this includes techniques or standardized protocols for targeted exams where dose is matched to indication/reason for exam; i.e. extremities or head) *Use of iterative reconstruction technique DLP: 719 mGy-cm FINDINGS: There is no evidence of acute intracranial hemorrhage or territorial infarction. No abnormal mass effect or midline shift is seen. Willson to white matter differentiation is well preserved. No extra-axial fluid collections are identified. The ventricles are normal in size. There is no abnormal attenuation within the brain parenchyma. The osseous structures and soft tissues are normal. The mastoid air cells and visualized portions of the paranasal sinuses are well aerated. ? CT/CT head/brain wo con IMPRESSION: No acute intracranial pathology. Dictated By: Alex Sommer MD Signed By: Electronically signed by Alex Sommer MD 10/08/21 0710 ECG Data ECG #1: Attestation: I personally reviewed and interpreted this ECG as follows: ECG interpretation date: 10/08/21 ECG interpretation time: 22:28 Prior ECG tracings: available for review Interpretation: Vent. Rate: 063 BPM ? ? Atrial Rate: 063 BPM P-R Int: 152 ms? QRS Dur: 084 ms QT Int: 426 ms ? ? ? P-R-T Axes: 024 008 020 degrees QTc Int: 435 ms ? Normal sinus rhythm with sinus arrhythmia Normal ECG When compared with ECG of 03-JAN-2021 02:44, No significant change was found DD/ [id number] ECG #2: Attestation: I personally reviewed and interpreted this ECG as follows: ECG interpretation date: 10/09/21 ECG interpretation time: 00:39 Prior ECG tracings: available for review Interpretation: Vent. Rate: 054 BPM ? ? Atrial Rate: 054 BPM P-R Int: 148 ms? QRS Dur: 082 ms QT Int: 472 ms ? ? ? P-R-T Axes: 023 014 025 degrees QTc Int: 447 ms ? Sinus bradycardia with sinus arrhythmia Otherwise normal ECG When compared with ECG of 08-OCT-2021 22:28, No significant change was found DD/ [id number] Discharge Plan Discharge Clinical Impression: Headache Patient Disposition: Home, Self-Care Instructions: General Headache (ED) Additional Instructions: Follow up with your primary care provider and a car body designer. Return to the emergency department immediately if your symptoms worsen or if you develop any dizziness, shortness of breath, difficulty breathing, chest pain, blurry vision, loss of vision, nausea, vomiting, abdominal pain, fever, chills, back pain, or any other complaints. Prescriptions: No Action cyclobenzaprine 10 mg tablet 10 mg PO Q8H PRN (Reason: Muscle spasm) Qty: 14 0RF azithromycin 250 mg tablet See Rx Instructions .ROUTE .COMPLEX Qty: 6 0RF Rx Instructions: take 500 mg today (day 1), then 250 mg for 4 days (days 2-5) ibuprofen 800 mg tablet 800 mg PO Q8H PRN (Reason: pain) Qty: 14 0RF acetaminophen [Tylenol Extra Strength] 500 mg tablet 1,000 mg PO QID PRN (Reason: fever or pain) Qty: 14 0RF prednisone 20 mg tablet 40 mg PO DAILY Qty: 10 0RF codeine-guaifenesin 10-100 mg/5 mL liquid 10 ml PO Q4-6H PRN (Reason: cough) Qty: 237 0RF cefuroxime axetil 500 mg tablet 500 mg PO BID Qty: 20 0RF metronidazole 500 mg tablet 500 mg PO BID 14 Days Qty: 28 0RF doxycycline hyclate 100 mg tablet 100 mg PO Q12H 14 Days Qty: 28 0RF cyclobenzaprine 10 mg tablet 10 mg PO BEDTIME PRN (Reason: muscle spasm) Qty: 7 0RF naproxen 500 mg tablet 500 mg PO BID Qty: 14 0RF Referrals: [facility] [place] Cardiovascular Services [Provider Group] (Call to establish and follow up with a car body designer. ) [facility] [place] Family Medicine [Provider Group] (Call to establish and follow up with a primary care provider. If you already have a primary care provider, please follow up with them. ) [facility] [place] Primary Care, [facility] [Provider Group] (Call to establish and follow up with a primary care provider. If you already have a primary care provider, please follow up with them. ) [facility] [place] Primary Care,Daniel [Provider Group] (Call to establish and follow up with a primary care provider. If you already have a primary care provider, please follow up with them. ) Stand Alone Forms: Work/School Release Interventions: ED Discharge Assessment Last Done: 10/09/21 01:13 Print Language: [place]
--- NOTE | 2021-10-08 22:24 | ECG_ITS ---
Test Reason : CX PAIN Blood Pressure : / mmHG Vent. Rate : 063 BPM Atrial Rate : 063 BPM P-R Int : 152 ms QRS Dur : 084 ms QT Int : 426 ms P-R-T Axes : 024 008 020 degrees QTc Int : 435 ms Normal sinus rhythm with sinus arrhythmia Normal ECG When compared with ECG of 03-JAN-2021 02:44, No significant change was found Referred By: Daja Bedoya Electronically Signed By:UZMA COLLIER
[2021-10-08 22:56] LABS: MANUAL DIFF FLAG NO
[2021-10-08 22:57] LABS: Basophils Absolute Auto 0.1 X10*3/uL (0.0-0.2); Basophils Percent Auto 0.5 % (0-2); Eosinophils Absolute Auto 0.1 X10*3/uL (0.0-0.4); Eosinophils Percent Auto 1.4 % (0-4); Hemoglobin 9.2 g/dl (12.0-16.0); Imm Gran Abs Auto 0.03 X10*3/uL (0.00-0.03); Imm Gran Pct Auto 0.3 % (0.0-0.4); Lymphocytes Absolute Auto 2.9 X10*3/uL (1.2-4.9); Lymphocytes Percent Auto 28.9 % (20-40); Mean Corpuscular HGB Conc 29.7 g/dl (31.0-35.0); Mean Corpuscular Hemoglobin 22.6 pg (27.0-33.0); Mean Corpuscular Volume 76.2 fL (80.0-98.0); Mean Platelet Volume 9.9 fL (9.4-12.3); Monocytes Absolute Auto 0.7 X10*3/uL (0.1-1.2); Monocytes Percent Auto 6.8 % (2-11); Neutrophils Absolute Auto 6.2 x10*3/uL (2.0-8.3); Neutrophils Percent Auto 62.1 % (45-73); Platelet Count 349 X10*3/uL (160-400); Red Blood Count 4.07 X10*6/uL (4.20-5.50); Red Cell Distribution Width 17.7 % (11.0-16.0)
[2021-10-08 23:12] LABS: Alanine Aminotransferase 22 U/L (0-31); Albumin Level 4.4 g/dL (3.5-5.0); Alkaline Phosphatase 88 U/L (39-117); Anion Gap 12 (12-20); Aspartate Amino Transferase 24 U/L (5-31); Bilirubin Total 0.2 mg/dL (0.0-1.0); Blood Urea Nitrogen 14 mg/dL (9-16); Calcium 9.1 mg/dL (8.4-10.2); Carbon Dioxide 28 mmol/L (22-29); Chloride 104 mmol/L (96-108); Creatinine Clr Calc Pharmacy 102.5; Estimated Glomerular Filt Rate > 60; Glucose Random 93 mg/dL (60-115); Potassium 3.8 mmol/L (3.3-5.1); Sodium 140 mmol/L (135-145); Total Protein 7.6 g/dL (6.5-8.0)
[2021-10-08 23:16] LABS: COVID-19 Test Negative (Negative)
[2021-10-08 23:19] LABS: Troponin-I High Sensitivity < 3.5 ng/L (<3.5-17.0)
[2021-10-09] MEDS: Ketorolac Tromethamine 15 MG/ML VIAL IVPUSH (00:03)
[2021-10-09] MEDS: ondansetron HCL 4 MG/2 ML VIAL IVPUSH (00:03)
[2021-10-09 00:12] VITALS: PULSE 48; RESP 16; O2SAT 100
--- NOTE | 2021-10-09 00:34 | ECG_ITS ---
Test Reason : BRADYCARDIA Blood Pressure : / mmHG Vent. Rate : 054 BPM Atrial Rate : 054 BPM P-R Int : 148 ms QRS Dur : 082 ms QT Int : 472 ms P-R-T Axes : 023 014 025 degrees QTc Int : 447 ms Sinus bradycardia with sinus arrhythmia Otherwise normal ECG When compared with ECG of 08-OCT-2021 22:28, No significant change was found Referred By: Daja Bedoya Electronically Signed By:UZMA COLLIER
== END 2021-10-09 01:22 | disposition home or self-care (01) ==
PROVIDERS: Physician Assistant Medical; Emergency Provider Emergency Medicine Emergency Medical Services
DX: R51.9 Headache, unspecified (principal); R07.9 Chest pain, unspecified; Z20.822 Contact with and (suspected) exposure to COVID-19; I10 Essential (primary) hypertension
CPT/HCPCS: 70450; 80053; 83735; 84484; 85025; 87635; 93005; 96374; 96375; 99284; 99285; J1200; J1885; J2405

== ENCOUNTER 2022-01-03 09:40 | Emergency (ER) | payer OTHER, SELFPAY ==
--- NOTE | ~2022-01-03 | CT_ITS ---
EXAMINATION: CT ABDOMEN AND PELVIS WITHOUT CONTRAST CLINICAL INFORMATION: Right flank pain. History of kidney stones. COMPARISON: August 26, 2018. TECHNIQUE: Multidetector volumetric imaging was performed from the superior aspect of the liver through the pubic symphysis. Sagittal and coronal reformatted images were obtained on the technologist's workstation. This CT examination was performed using dose optimization techniques as appropriate, variously including the following: *Automated exposure control *Adjustment of mA and/or kV according to patient size (this includes techniques or standardized protocols for targeted exams where dose is matched to indication/reason for exam; i.e. extremities or head) *Use of iterative reconstruction technique DLP: 737 mGy-cm FINDINGS: LUNG BASES: The lung bases appear clear, with no evidence of inflammation or nodules. Suspect mildly decreased blood pool density, raising the possibility of anemia. LIVER, GALLBLADDER, AND BILIARY TREE: The liver appears unremarkable in size, shape, and attenuation. No focal hepatic lesion or biliary ductal dilatation is appreciated. Unremarkable appearance of the gallbladder. PANCREAS: Unremarkable SPLEEN: Unremarkable ADRENAL GLANDS: Unremarkable KIDNEYS AND URETERS: Innumerable, approximately 0.3 cm or less, bilateral renal collecting system stones and/or papillary calcifications. The kidneys appear unremarkable in size, shape, and attenuation. No evidence of hydronephrosis or hydroureter. BLADDER: Unremarkable GASTROINTESTINAL TRACT: The small and large bowel appear unremarkable. No diverticulosis. Normal-appearing distal ileum and vermiform appendix. ABDOMINAL WALL: No significant hernia is appreciated. LYMPH NODES: No evidence of adenopathy by size criteria. VASCULAR: Unremarkable PELVIC VISCERA: Unremarkable OSSEOUS STRUCTURES: Unremarkable CT/CT abdomen pelvis wo IV con IMPRESSION: Innumerable, approximately 0.3 cm or less, bilateral renal collecting system stones and/or papillary calcifications. No evidence of hydronephrosis or hydroureter.
[2022-01-03 09:42] VITALS: BP 137/71; PULSE 71; RESP 14; TEMP 36.4; O2SAT 100; BMI 39.0
--- NOTE | 2022-01-03 10:12 | ED.GENADULT ---
HPI - General Adult General Chief complaint: General Medical Stated complaint: kidney pain rad. right leg Time Seen by Provider: 01/03/22 10:02 Source: patient Mode of arrival: ambulatory Limitations: no limitations History of Present Illness HPI narrative: 31 yo female with history of kidney stones s/p lithotripsy in 2014 presenting right sided flank pain that started 2 days ago. She was at work when it started and it came on slowly in the right lower back. She states it gradually got worse and now radiates down her back and down her buttock and right upper leg. Last night she states she didnt sleep at all due to the pain. She tried motrin, tylenol, massage, hot shower and bengay with no relief. She reports the pain is 10/10 currently. No N/V/D or abdominal pain. No fever or chills. She states the pain feels similar to when she had kidney stone 7 years ago. MD complaint: right sided flank pain/low back pain Onset (ago): day(s) (2) Location: back Radiation: extremity Severity: severe Severity scale (1-10): 10 Quality: stabbing and aching Pain Consistency: constant Relieving factors: none Exacerbating factors: movement Associated symptoms: denies other symptoms Treatments prior to arrival: NSAID and heat therapy Related Data Previous Rx's Medication Instructions Recorded acetaminophen 500 mg tablet 1,000 mg PO QID PRN fever or pain 01/02/21 (Tylenol Extra Strength) #14 tabs azithromycin 250 mg tablet See Rx Instructions PO .COMPLEX #6 01/02/21 tabs cyclobenzaprine 10 mg tablet 10 mg PO Q8H PRN Muscle spasm #14 01/02/21 tabs ibuprofen 800 mg tablet 800 mg PO Q8H PRN pain #14 tabs 01/02/21 cefuroxime axetil 500 mg tablet 500 mg PO BID #20 tabs 01/03/21 codeine 10 mg-guaifenesin 100 mg/5 10 ml PO Q4-6H PRN cough #237 mL 01/03/21 mL oral liquid prednisone 20 mg tablet 40 mg PO DAILY #10 tabs 01/03/21 doxycycline hyclate 100 mg tablet 100 mg PO Q12H 14 days #28 tabs 04/19/21 metronidazole 500 mg tablet 500 mg PO BID 14 days #28 tabs 04/19/21 cyclobenzaprine 10 mg tablet 10 mg PO BEDTIME PRN muscle spasm 07/04/21 #7 tabs naproxen 500 mg tablet 500 mg PO BID #14 tabs 07/04/21 cyclobenzaprine 10 mg tablet 10 mg PO TID PRN muscle spasm #10 01/03/22 tabs ibuprofen 600 mg tablet 600 mg PO Q8H PRN pain #10 tabs 01/03/22 lidocaine 5 % topical patch 1 patch topical DAILY #15 ea 01/03/22 Allergies Allergy/AdvReac Type Severity Reaction Status Date / Time morphine Allergy Mild Rash Verified 09/18/21 14:23 Review of Systems Review of Systems: Constitutional: No Fever, No Chills ENT/Mouth: No sore throat, No Rhinorrhea Cardiovascular: No Chest Pain, No SOB Respiratory: No Cough, No Sputum Gastrointestinal: No Nausea, No Vomiting, No Diarrhea, No abdominal Pain Genitourinary: No Dysuria, No Urinary Frequency, No Hematuria Musculoskeletal: + joint pain, + Myalgias Skin: No Skin Lesions, No rash Neuro: No Weakness, No Numbness, No Dizziness, No Headache Psych: + Anxiety/Panic, No Depression Heme/Lymph: No Bruising, No Lymphadenopathy PMFSH Past Medical History Medical History Hypertension Surgical History No pertinent past surgical history No pertinent past surgical history Social History Social History Alcohol intake: current Alcohol intake frequency: holidays/special occasions only Patient Tobacco Use Status: Never used Tobacco Advance Directives: Yes Advance Directives Information Provided: Yes Advance Directives on File: No Physical Exam ED Vital Signs: Vital Signs - 24 hr 01/03/22 09:42 Temperature 97.6 F Pulse Rate 71 Respiratory Rate 14 Blood Pressure 137/71 Pulse Oximetry 100 Oxygen Delivery Method Room Air BMI result Body Mass Index 39.0 Appearance: Alert. Oriented X3. No acute distress. Eyes: Pupils equal, round and reactive to light. ENT: Pharynx normal. Neck: Normal inspection. Neck supple. CVS: Normal heart rate and rhythm. Pulses normal. Respiratory: No respiratory distress. Breath sounds normal. Abdomen: Soft and nontender. +BS x4 Back: right lower back with soft tissue tenderness. no midline tenderness, noO CVA tenderness. no SI joint tenderness. normal ROM of the spine with pain with flexion Skin: Skin warm and dry. Normal skin color. Normal skin turgor. No rashes. Extremities: No lower extremity edema. normal ROM of the right hip, knee and ankle. nontender throughout Neuro: Oriented X 3. No motor deficit. No sensory deficit. Course Course Course Narrative: 31 yo female presenting with right flank pain x2 days without urinary symptoms of N/V/D or abdominal. Tenderness on exam is more of her lower lumbar soft tissues on the right, no CVA tenderness. Doubt obstructing kidney stone or pyelo but will get CT scan for further evaluation, labs and UA. Toradol IM ordered for pain. Will reassess. Reevaluation(s) Reevaluation #1: Labs show normal WBC. Normal kidney function. UA negative for infection/blood and . CT scan is pending. Reevaluation #2: CT with innumnerable punctate stones within the kidney but not in the ureter. Pain is most likely muscular stain and spasm. Will treat accordingly. Stable for d/c home with NSAID and muscle relaxer. Work note provided per request. Medical Decision Making Lab Data Result diagrams: 01/03/22 10:40 01/03/22 10:40 Labs: Lab Results 01/03/22 01/03/22 01/03/22 Range/Units 10:39 10:39 10:39 WBC (4.8-10.8) X10*3/uL RBC (4.20-5.50) X10*6/uL Hgb (12.0-16.0) g/dl Hct (37.0-47.0) % MCV (80.0-98.0) fL MCH (27.0-33.0) pg MCHC (31.0-35.0) g/dl RDW (11.0-16.0) % Plt Count (160-400) X10*3/uL MPV (9.4-12.3) fL Immature Gran % (Auto) (0.0-0.4) % Neut % (Auto) (45-73) % Lymph % (Auto) (20-40) % Cobb % (Auto) (2-11) % Eos % (Auto) (0-4) % Baso % (Auto) (0-2) % Lymph # (Auto) (1.2-4.9) X10*3/uL Cobb # (Auto) (0.1-1.2) X10*3/uL Eos # (Auto) (0.0-0.4) X10*3/uL Baso # (Auto) (0.0-0.2) X10*3/uL Abs Immat Gran (auto) (0.00-0.03) X10*3/uL Absolute Neuts (auto) (2.0-8.3) x10*3/uL Absolute Nucleated RBC (0.0-0.012) X10*3/uL Nucleated RBC % (auto) (0.0-0.2) /100WBC Sodium (135-145) mmol/L Potassium (3.3-5.1) mmol/L Chloride (96-108) mmol/L Carbon Dioxide (22-29) mmol/L Anion Gap (12-20) BUN (9-16) mg/dL Creatinine (0.5-1.4) mg/dL Estim Creat Clear Calc Estimated GFR Random Glucose (60-115) mg/dL Calcium (8.4-10.2) mg/dL Magnesium (1.6-2.6) mg/dL Total Bilirubin (0.0-1.0) mg/dL Direct Bilirubin (0.0-0.5) mg/dL AST (5-31) U/L ALT (0-31) U/L Alkaline Phosphatase (39-117) U/L Total Protein (6.5-8.0) g/dL Albumin (3.5-5.0) g/dL Urine Color Yellow Urine Appearance Clear Urine pH 5.5 (5.0-9.0) Ur Specific [place] 1.020 (1.005-1.025) Urine Protein Negative (Neg-Trace) mg/dL Urine Glucose (UA) Negative (Negative) mg/dL Urine Ketones Negative (Negative) mg/dL Urine Blood Negative (Negative) Urine Nitrite Negative (Negative) Ur Leukocyte Esterase Negative (Negative) Urine Test NEGATIVE (NEGATIVE) COVID-19 ([facility]) Negative (Negative) COVID-19 Clin Com See Note 10/21/22 10/21/22 Range/Units 10:40 10:40 WBC 8.6 (4.8-10.8) X10*3/uL RBC 3.96 L (4.20-5.50) X10*6/uL Hgb 9.4 L (12.0-16.0) g/dl Hct 31.7 L (37.0-47.0) % MCV 80.1 (80.0-98.0) fL MCH 23.7 L (27.0-33.0) pg MCHC 29.7 L (31.0-35.0) g/dl RDW 16.7 H (11.0-16.0) % Plt Count 317 (160-400) X10*3/uL MPV 10.1 (9.4-12.3) fL Immature Gran % (Auto) 0.5 H (0.0-0.4) % Neut % (Auto) 66.5 (45-73) % Lymph % (Auto) 23.5 (20-40) % Cobb % (Auto) 7.8 (2-11) % Eos % (Auto) 1.4 (0-4) % Baso % (Auto) 0.3 (0-2) % Lymph # (Auto) 2.0 (1.2-4.9) X10*3/uL Cobb # (Auto) 0.7 (0.1-1.2) X10*3/uL Eos # (Auto) 0.1 (0.0-0.4) X10*3/uL Baso # (Auto) 0.0 (0.0-0.2) X10*3/uL Abs Immat Gran (auto) 0.04 H (0.00-0.03) X10*3/uL Absolute Neuts (auto) 5.7 (2.0-8.3) x10*3/uL Absolute Nucleated RBC 0.000 (0.0-0.012) X10*3/uL Nucleated RBC % (auto) 0.0 (0.0-0.2) /100WBC Sodium 142 (135-145) mmol/L Potassium 5.1 D (3.3-5.1) mmol/L Chloride 108 (96-108) mmol/L Carbon Dioxide 26 (22-29) mmol/L Anion Gap 13 (12-20) BUN 15 (9-16) mg/dL Creatinine 0.73 (0.5-1.4) mg/dL Estim Creat Clear Calc 112.0 Estimated GFR > 60 Random Glucose 106 (60-115) mg/dL Calcium 9.2 (8.4-10.2) mg/dL Magnesium 2.0 (1.6-2.6) mg/dL Total Bilirubin 0.2 (0.0-1.0) mg/dL Direct Bilirubin < 0.2 (0.0-0.5) mg/dL AST 16 (5-31) U/L ALT 15 (0-31) U/L Alkaline Phosphatase 80 (39-117) U/L Total Protein 7.2 (6.5-8.0) g/dL Albumin 4.1 (3.5-5.0) g/dL Urine Color Urine Appearance Urine pH (5.0-9.0) Ur Specific [place] (1.005-1.025) Urine Protein (Neg-Trace) mg/dL Urine Glucose (UA) (Negative) mg/dL Urine Ketones (Negative) mg/dL Urine Blood (Negative) Urine Nitrite (Negative) Ur Leukocyte Esterase (Negative) Urine Test (NEGATIVE) COVID-19 ([facility]) (Negative) COVID-19 Clin Com Discharge Plan Discharge Clinical Impression: Low back pain Patient Disposition: Home, Self-Care Instructions: Acute Low Back Pain (ED), Lower Back Exercises (ED) Additional Instructions: Your lab workup was unremarkable. Your urine was negative for infection and . Your CT scan did not show any obstructing kidney stones. Your pain is most likely muscular. No bending, lifting or twisting. Use ice several times per day for 20 minutes at a time for the next 48 hours and then change to heat. Take medications as prescribed to help with pain and discomfort. Follow up with your Primary Care Doctor this week. If your pain worsens, if you develop new numbness, tingling, weakness, loss of function or incontinence call 911 or come back to the ER right away for evaluation. Prescriptions: New cyclobenzaprine 10 mg tablet 10 mg PO TID PRN (Reason: muscle spasm) Qty: 10 0RF ibuprofen 600 mg tablet 600 mg PO Q8H PRN (Reason: pain) Qty: 10 0RF lidocaine 5 % adhesive patch,medicated 1 patch topical DAILY Qty: 15 0RF Rx Instructions: leave on most painful area for up to 12 hrs No Action cyclobenzaprine 10 mg tablet 10 mg PO Q8H PRN (Reason: Muscle spasm) Qty: 14 0RF azithromycin 250 mg tablet See Rx Instructions .ROUTE .COMPLEX Qty: 6 0RF Rx Instructions: take 500 mg today (day 1), then 250 mg for 4 days (days 2-5) ibuprofen 800 mg tablet 800 mg PO Q8H PRN (Reason: pain) Qty: 14 0RF acetaminophen [Tylenol Extra Strength] 500 mg tablet 1,000 mg PO QID PRN (Reason: fever or pain) Qty: 14 0RF prednisone 20 mg tablet 40 mg PO DAILY Qty: 10 0RF codeine-guaifenesin 10-100 mg/5 mL liquid 10 ml PO Q4-6H PRN (Reason: cough) Qty: 237 0RF cefuroxime axetil 500 mg tablet 500 mg PO BID Qty: 20 0RF metronidazole 500 mg tablet 500 mg PO BID 14 Days Qty: 28 0RF doxycycline hyclate 100 mg tablet 100 mg PO Q12H 14 Days Qty: 28 0RF cyclobenzaprine 10 mg tablet 10 mg PO BEDTIME PRN (Reason: muscle spasm) Qty: 7 0RF naproxen 500 mg tablet 500 mg PO BID Qty: 14 0RF Stand Alone Forms: Work/School Release
[2022-01-03 10:44] LABS: MANUAL DIFF FLAG NO
[2022-01-03 10:48] LABS: Appearance Urine Clear; Color Urine Yellow; Glucose Urine UA Negative (Negative); Leukocyte Esterase Urine Negative (Negative); Nitrite Urine Negative (Negative); PH 5.5 (5.0-9.0); Urine Blood Negative (Negative); Urine Ketones Negative (Negative); Urine Protein Negative (Neg-Trace)
[2022-01-03 10:48] LABS: Basophils Percent Auto 0.3 % (0-2); Eosinophils Absolute Auto 0.1 X10*3/uL (0.0-0.4); Eosinophils Percent Auto 1.4 % (0-4); Hematocrit 31.7 % (37.0-47.0); Hemoglobin 9.4 g/dl (12.0-16.0); Imm Gran Abs Auto 0.04 X10*3/uL (0.00-0.03); Imm Gran Pct Auto 0.5 % (0.0-0.4); Lymphocytes Percent Auto 23.5 % (20-40); Mean Corpuscular HGB Conc 29.7 g/dl (31.0-35.0); Mean Corpuscular Hemoglobin 23.7 pg (27.0-33.0); Mean Corpuscular Volume 80.1 fL (80.0-98.0); Mean Platelet Volume 10.1 fL (9.4-12.3); Monocytes Absolute Auto 0.7 X10*3/uL (0.1-1.2); Monocytes Percent Auto 7.8 % (2-11); Neutrophils Absolute Auto 5.7 x10*3/uL (2.0-8.3); Neutrophils Percent Auto 66.5 % (45-73); Platelet Count 317 X10*3/uL (160-400); Red Blood Count 3.96 X10*6/uL (4.20-5.50); Red Cell Distribution Width 16.7 % (11.0-16.0); White Blood Count 8.6 X10*3/uL (4.8-10.8)
[2022-01-03 10:50] LABS: UPreg QC Valid YES; Urine Pregnancy NEGATIVE (NEGATIVE)
[2022-01-03] MEDS: Ketorolac Tromethamine 30 MG/ML VIAL IM (10:59)
[2022-01-03 11:06] LABS: COVID-19 Test Negative (Negative); IDNOW Serial# 16C4AD1C
[2022-01-03 11:12] LABS: Alanine Aminotransferase 15 U/L (0-31); Albumin Level 4.1 g/dL (3.5-5.0); Alkaline Phosphatase 80 U/L (39-117); Anion Gap 13 (12-20); Aspartate Amino Transferase 16 U/L (5-31); Bilirubin Direct < 0.2 mg/dL (0.0-0.5); Bilirubin Total 0.2 mg/dL (0.0-1.0); Blood Urea Nitrogen 15 mg/dL (9-16); Calcium 9.2 mg/dL (8.4-10.2); Carbon Dioxide 26 mmol/L (22-29); Chloride 108 mmol/L (96-108); Estimated Glomerular Filt Rate > 60; Glucose Random 106 mg/dL (60-115); Potassium 5.1 mmol/L (3.3-5.1); Sodium 142 mmol/L (135-145); Total Protein 7.2 g/dL (6.5-8.0)
== END 2022-01-03 13:27 | disposition home or self-care (01) ==
PROVIDERS: Physician Assistant; Emergency Provider Emergency Medicine
DX: M54.50 Low back pain, unspecified (principal); Z20.822 Contact with and (suspected) exposure to COVID-19; R10.9 Unspecified abdominal pain; I10 Essential (primary) hypertension; Z87.442 Personal history of urinary calculi
CPT/HCPCS: 74176; 80048; 80076; 81003; 81025; 83735; 85025; 87635; 96372; 99284; J1885

== ENCOUNTER 2022-09-04 07:17 | Emergency (ER) | payer MEDICAID, SELFPAY ==
[2022-09-04 07:21] VITALS: BP 148/98; PULSE 77; RESP 18; TEMP 36.8; O2SAT 99; BMI 40.0
--- NOTE | 2022-09-04 07:44 | ED_ITS ---
HPI - General Adult General Chief complaint: General Medical Stated complaint: Right side neck pain/stiffness Time Seen by Provider: 09/04/22 07:31 Source: patient Mode of arrival: ambulatory History of Present Illness HPI narrative: 32-year-old female who works as a [employer] comes in with right-sided neck discomfort after sleeping but denies any numbness or tingling into the right upper extremity, denies any fevers or chills or midline cervical pain, headaches, fevers, chills and otherwise denies shortness of breath her chest pain/palpitations. Related Data Previous Rx's Medication Instructions Recorded acetaminophen 500 mg tablet 1,000 mg PO QID PRN fever or pain 01/02/21 (Tylenol Extra Strength) #14 tabs azithromycin 250 mg tablet See Rx Instructions PO .COMPLEX #6 01/02/21 tabs cefuroxime axetil 500 mg tablet 500 mg PO BID #20 tabs 01/03/21 codeine 10 mg-guaifenesin 100 mg/5 10 ml PO Q4-6H PRN cough #237 mL 01/03/21 mL oral liquid prednisone 20 mg tablet 40 mg PO DAILY #10 tabs 01/03/21 doxycycline hyclate 100 mg tablet 100 mg PO Q12H 14 days #28 tabs 04/19/21 metronidazole 500 mg tablet 500 mg PO BID 14 days #28 tabs 04/19/21 lidocaine 5 % topical patch 1 patch topical DAILY #15 ea 01/03/22 cyclobenzaprine 5 mg tablet 5 mg PO BEDTIME PRN muscle spasm 09/04/22 #4 tabs ketorolac 10 mg tablet 10 mg PO Q6H PRN pain 5 days #20 09/04/22 tabs Allergies Allergy/AdvReac Type Severity Reaction Status Date / Time morphine Allergy Mild Rash Verified 09/18/21 14:23 Review of Systems Review of Systems: Pertinent positives and negatives as stated in HPI [facility] Past Medical History Source: nursing notes reviewed Medical History Hypertension Surgical History No pertinent past surgical history No pertinent past surgical history Social History Social History Alcohol intake: current Alcohol intake frequency: holidays/special occasions only Patient Tobacco Use Status: Never used Tobacco Advance Directives: No Advance Directives Information Provided: No Physical Exam ED Vital Signs: Vital Signs - 24 hr 09/04/ 07:21 Temperature 98.3 F Pulse Rate 77 Respiratory Rate 18 Blood Pressure 148/98 H Pulse Oximetry 99 Oxygen Delivery Method Room Air BMI result Body Mass Index 40.0 VITAL SIGNS: Reviewed. GENERAL: Well developed, well nourished, in no acute distress. HEAD: Normocephalic/atraumatic EYES: PERRLA, EOMI EARS: Ext canals without abnormality, TMs non-bulging and non-erythematous NOSE: Nares patent bilateral OROPHARYNX: no oral lesions noted, posterior pharynx clear and non-erythematous without noted tonsillar enlargement/erythema/exudates NECK: Supple, no adenopathy, no midline cervical spine tenderness or step-offs, there is trapezius at the right neck base spasm to extends out word towards the right shoulder LUNGS: Normal breath sounds. No adventitious sounds or accessory muscle use. SpO2<99> CARDIOVASCULAR: Regular rate and rhythm without noted murmurs, no JVD or lower extremity edema. ABDOMEN: Soft, non-tender, non-distended with bowel sounds. MUSCULOSKELETAL: No tenderness, deformities, or effusions noted on gross inspection. EXTREMITIES: No cyanosis, clubbing or edema. SKIN: Inspection of the skin reveals no rashes NEUROLOGIC: Alert and oriented x 4. Strength and sensation to light touch were grossly intact x 4. Medical Decision Making Medical Decision Making MDM Narrative: 32-year-old female with history and clinical presentation after review of all investigations my interpretation is patient has muscle spasm/strain likely shows she had with her job but no evidence of radicular symptoms and no suspicion for meningitis or pharyngitis. She received combination analgesics and lidocaine patch and was discharged home in stable condition. Differential Diagnosis Please see the discussion above Discharge Plan Discharge Clinical Impression: Muscle spasms of neck Patient Disposition: Home, Self-Care Instructions: Muscle Spasm (ED) Additional Instructions: 1. Tylenol 1000 mg, orally, every 6 hours as needed for pain control. Do not exceed 4000 mg within 24 hours. 2. Lidocaine patch, apply to area of maximal tenderness as directed on the outside packaging. As an alternative consider ThermaCare patches which are available [id number] as well. 3. Follow-up with your primary care provider and possibly discuss physical therapy for additional symptom relief and treatment for your musculoskeletal toni n. Return to the ER for any worsening symptoms. Prescriptions: New ketorolac 10 mg tablet 10 mg PO Q6H PRN (Reason: pain) 5 Days Qty: 20 0RF Rx Instructions: Patient received Toradol in the emergency room. cyclobenzaprine 5 mg tablet 5 mg PO BEDTIME PRN (Reason: muscle spasm) Qty: 4 0RF Discontinued cyclobenzaprine 10 mg tablet 10 mg PO Q8H PRN (Reason: Muscle spasm) Qty: 14 0RF ibuprofen 800 mg tablet 800 mg PO Q8H PRN (Reason: pain) Qty: 14 0RF cyclobenzaprine 10 mg tablet 10 mg PO BEDTIME PRN (Reason: muscle spasm) Qty: 7 0RF naproxen 500 mg tablet 500 mg PO BID Qty: 14 0RF cyclobenzaprine 10 mg tablet 10 mg PO TID PRN (Reason: muscle spasm) Qty: 10 0RF ibuprofen 600 mg tablet 600 mg PO Q8H PRN (Reason: pain) Qty: 10 0RF No Action azithromycin 250 mg tablet See Rx Instructions .ROUTE .COMPLEX Qty: 6 0RF Rx Instructions: take 500 mg today (day 1), then 250 mg for 4 days (days 2-5) acetaminophen [Tylenol Extra Strength] 500 mg tablet 1,000 mg PO QID PRN (Reason: fever or pain) Qty: 14 0RF prednisone 20 mg tablet 40 mg PO DAILY Qty: 10 0RF codeine-guaifenesin 10-100 mg/5 mL liquid 10 ml PO Q4-6H PRN (Reason: cough) Qty: 237 0RF cefuroxime axetil 500 mg tablet 500 mg PO BID Qty: 20 0RF metronidazole 500 mg tablet 500 mg PO BID 14 Days Qty: 28 0RF doxycycline hyclate 100 mg tablet 100 mg PO Q12H 14 Days Qty: 28 0RF lidocaine 5 % adhesive patch,medicated 1 patch topical DAILY Qty: 15 0RF Rx Instructions: leave on most painful area for up to 12 hrs Stand Alone Forms: Work/School Release
[2022-09-04] MEDS: Acetaminophen 325 MG TABLET 975 MG PO (07:56)
[2022-09-04] MEDS: Ketorolac Tromethamine 15 MG/ML VIAL IM (07:56)
[2022-09-04] MEDS: Lidocaine 4 % Patch ADH..PATCH 1 PATCH TRANSDERMA (07:57)
--- NOTE | 2022-09-04 08:09 | PC.NURSE ---
pt came in for R. shoulder pain x 2 weeks, states worse today. pt medicated as ordered.
== END 2022-09-04 08:20 | disposition home or self-care (01) ==
PROVIDERS: Emergency Provider Student in an Organized Health Care Education/Training Program
DX: M62.838 Other muscle spasm (principal); M54.2 Cervicalgia
CPT/HCPCS: 96372; 99284; J1885

== ENCOUNTER 2022-09-05 03:59 | Emergency (ER) | payer MEDICAID, SELFPAY ==
[2022-09-05 04:08] VITALS: BP 144/88; PULSE 70; RESP 16; TEMP 36.9; O2SAT 99; BMI 34.1
--- NOTE | 2022-09-05 05:01 | ED_ITS ---
HPI - Neck Pain/Injury General Chief Complaint: Neck Pain/Injury Stated Complaint: Neck pain/Arm numbness (seen yesterday) Time Seen by Provider: 09/05/22 04:48 Source: patient and family Mode of arrival: ambulatory Limitations: no limitations History of Present Illness HPI Narrative: 32-year-old female who presents emergency department for evaluation of right- sided neck pain with pain radiating down to her elbow and tingling this radiating down her hand. Patient was seen in the emergency department yesterday for right-sided neck discomfort which started after she woke up in the morning. She was diagnosed with muscle spasm and treated with Tylenol, light applying patch and cyclobenzaprine. Patient states that her neck pain is gotten worse. She now has pain that radiates down her right arm to her elbow and tingling this in her right hand. She denies any weakness. She denied fever, chills, nausea, vomiting. Patient does not recount any injury but she states she works as a [employer] and her job is very physical. Related Data Previous Rx's Medication Instructions Recorded acetaminophen 500 mg tablet 1,000 mg PO QID PRN fever or pain 01/02/21 (Tylenol Extra Strength) #14 tabs azithromycin 250 mg tablet See Rx Instructions PO .COMPLEX #6 01/02/21 tabs cefuroxime axetil 500 mg tablet 500 mg PO BID #20 tabs 01/03/21 codeine 10 mg-guaifenesin 100 mg/5 10 ml PO Q4-6H PRN cough #237 mL 01/03/21 mL oral liquid prednisone 20 mg tablet 40 mg PO DAILY #10 tabs 01/03/21 doxycycline hyclate 100 mg tablet 100 mg PO Q12H 14 days #28 tabs 04/19/21 metronidazole 500 mg tablet 500 mg PO BID 14 days #28 tabs 04/19/21 lidocaine 5 % topical patch 1 patch topical DAILY #15 ea 01/03/22 cyclobenzaprine 5 mg tablet 5 mg PO BEDTIME PRN muscle spasm 09/04/22 #4 tabs ketorolac 10 mg tablet 10 mg PO Q6H PRN pain 5 days #20 09/04/22 tabs oxycodone 5 mg tablet 5 mg PO Q4H PRN pain #10 tabs 09/05/22 prednisone 20 mg tablet 60 mg PO DAILY 5 days #15 tabs 09/05/22 Allergies Allergy/AdvReac Type Severity Reaction Status Date / Time morphine Allergy Mild Rash Verified 09/05/22 04:08 Review of Systems Review of Systems: Yes all other systems are reviewed and are negative [facility] Past Medical History [facility] Narrative: Past medical history: Hypertension. Social history: She works as a [employer]. She denies tobacco use. She occasionally drinks alcohol. She denies drug use. Medical History Hypertension Surgical History No pertinent past surgical history No pertinent past surgical history Social History Social History Alcohol intake: current Alcohol intake frequency: holidays/special occasions only Patient Tobacco Use Status: Never used Tobacco Advance Directives: No Advance Directives Information Provided: Yes Physical Exam Vital Signs: Vital Signs: Last Vital Signs Temp 98.4 F 09/05/22 04:08 Pulse 70 09/05/22 04:08 Resp 16 09/05/22 04:08 BP 144/88 H 09/05/22 04:08 Pulse Ox 99 09/05/22 04:08 O2 Del Method Room Air 09/05/22 04:08 BMI result Body Mass Index 34.1 General: Awake, alert, female patient, very pleasant and cooperative, does not appear to be in distress, answers all questions appropriately HEENT: Head is normal cephalic and atraumatic, pupils were equal round reactive light, sclera contact however normal, mouth revealed moist membranes Neck: Patient has moderate to severe tenderness and spasm of the right trapezius muscle. Neuro: Cranial nerves 2-12 are intact, strength is symmetric bilaterally Medical Decision Making Medical Decision Making [facility] Narrative: 32-year-old female who presents emergency department for evaluation right-sided neck pain which she has had for 2 days, she was seen in the emergency department yesterday and diagnosed with muscle spasm-treated with cyclobenzaprine, Ketoralac and Tylenol. Patient's neck pain got worse and she now has radicular pain to her elbow and tingling this in her right hand with no weakness. Examination did reveal significant tenderness palpation of the trapezius muscle with spasm of this muscle. At this time I believe that the radicular pain is due to inflammation of cervical nerves caused by trapezius muscle inflammation. Patient was advised to stop taking Ketoralac She was prescribed prednisone 60 mg once a day for 5 days and given her 1st dose here in the emergency department She is advised to continue taking Tylenol and cyclobenzaprine. She was also prescribed oxycodone 5 mg every 4-6 hours as needed for pain not relieved by Tylenol and prednisone. She was given 10 mg of oxycodone here in the emergency department. Patient was given a work note and advised not return to work until 09/10/2022. She was given printed and verbal instructions and discharged home Differential Diagnosis Differential diagnosis includes was not limited to right trapezius muscle sprain, disc disease, cervical radiculopathy Independent Historian Clinical information obtained from an independent historian. History obtained from or confirmed by: Spouse External Record Review External record reviewed: Other ([facility] patient monitoring program-patient has no prescription for narcotic medications) Discharge Plan Discharge Clinical Impression: Cervical radiculopathy Strain of right trapezius muscle Qualifiers: Encounter type: subsequent encounter Qualified Code(s): S46.811D - Strain of other muscles, fascia and tendons at shoulder and upper arm level, right arm, subsequent encounter Patient Disposition: Home, Self-Care Instructions: Cervical Sprain (ED), Cervical Radiculopathy (ED) Additional Instructions: Your physical examination revealed significant tenderness with palpation of your trapezius/neck muscle on the right. You also have spasm of this muscle. The inflammation and spasm is causing inflammation of the nerves that go down your arm and this explains the pain in your arm. Stop taking Toradol (ketorolac). Continue taking Flexeril (cyclobenzaprine) as prescribed Take prednisone 20 mg pills, 3 pills once a day for 5 days. While you are taking prednisone, do not take any NSAIDs (Motrin, Advil, ibuprofen, Aleve, naproxen). Prednisone is a strong steroid anti-inflammatory medication. Take Tylenol (acetaminophen) 500 mg pills, 2 pills every 6 hours as needed for pain. For pain not relieved by Tylenol take oxycodone 5 mg pills, 1 pill every 4 hours as needed for pain. Do not drive or work while taking this medication since they can cause sleepiness. Oxycodone is a narcotic medication that can be addicting. If you are concerned about addiction you can ask the pharmacist for less pills or do not get this prescription filled. Follow-up with your doctor in 2 days. Please return to the emergency department if your symptoms get worse or if you develop any symptoms that are concerning to you. Please see the work note Prescriptions: New prednisone 20 mg tablet 60 mg PO DAILY 5 Days Qty: 15 0RF oxycodone 5 mg tablet 5 mg PO Q4H PRN (Reason: pain) Qty: 10 0RF Rx Instructions: Patient may request partial fill; Partial Fill upon patient request. No Action azithromycin 250 mg tablet See Rx Instructions .ROUTE .COMPLEX Qty: 6 0RF Rx Instructions: take 500 mg today (day 1), then 250 mg for 4 days (days 2-5) acetaminophen [Tylenol Extra Strength] 500 mg tablet 1,000 mg PO QID PRN (Reason: fever or pain) Qty: 14 0RF prednisone 20 mg tablet 40 mg PO DAILY Qty: 10 0RF codeine-guaifenesin 10-100 mg/5 mL liquid 10 ml PO Q4-6H PRN (Reason: cough) Qty: 237 0RF cefuroxime axetil 500 mg tablet 500 mg PO BID Qty: 20 0RF metronidazole 500 mg tablet 500 mg PO BID 14 Days Qty: 28 0RF doxycycline hyclate 100 mg tablet 100 mg PO Q12H 14 Days Qty: 28 0RF lidocaine 5 % adhesive patch,medicated 1 patch topical DAILY Qty: 15 0RF Rx Instructions: leave on most painful area for up to 12 hrs ketorolac 10 mg tablet 10 mg PO Q6H PRN (Reason: pain) 5 Days Qty: 20 0RF Rx Instructions: Patient received Toradol in the emergency room. cyclobenzaprine 5 mg tablet 5 mg PO BEDTIME PRN (Reason: muscle spasm) Qty: 4 0RF Stand Alone Forms: Work/School Release
[2022-09-05] MEDS: predniSONE 20 MG TABLET 60 MG PO (05:09)
[2022-09-05] MEDS: oxyCODONE HCl Immed Release 5 MG TABLET 10 MG PO (05:09)
[2022-09-05 05:13] VITALS: BP 136/78; PULSE 81; RESP 18; O2SAT 100
== END 2022-09-05 05:15 | disposition home or self-care (01) ==
PROVIDERS: Emergency Provider Emergency Medicine Emergency Medical Services
DX: M54.12 Radiculopathy, cervical region (principal); M54.2 Cervicalgia; Z79.899 Other long term (current) drug therapy
CPT/HCPCS: 99283; 99284

== ENCOUNTER 2022-11-17 22:48 | Emergency (ER) | payer MEDICAID, SELFPAY ==
[2022-11-17 22:51] VITALS: BP 139/100; PULSE 83; RESP 18; TEMP 37; O2SAT 98; BMI 41.0
== END 2022-11-18 00:42 | disposition left against medical advice (07) ==
PROVIDERS: Emergency Provider Emergency Medicine
DX: R51.9 Headache, unspecified (principal)
CPT/HCPCS: 99281

== ENCOUNTER 2022-12-30 19:26 | Emergency (ER) | payer MEDICAID, SELFPAY ==
[2022-12-30 19:38] VITALS: BP 127/91; PULSE 94; RESP 20; TEMP 37; O2SAT 97; BMI 42.0
--- NOTE | 2022-12-30 19:39 | ED.GENADULT ---
HPI - General Adult General Chief complaint: General Medical Stated complaint: Throat pain radiating to ear/fever Time Seen by Provider: 12/30/22 21:21 Source: patient Mode of arrival: ambulatory Limitations: no limitations History of Present Illness HPI narrative: Patient complaining of sore throat for last 3 days low-grade fever coughing has nausea no vomiting no other member sick at home Related Data Previous Rx's ?Medication ?Instructions ?Recorded acetaminophen 500 mg tablet 1,000 mg (2 x 500 mg) PO QID PRN 01/02/21 (Tylenol Extra Strength) fever or pain #14 tabs azithromycin 250 mg tablet See Rx Instructions PO .COMPLEX #6 01/02/21 tabs cefuroxime axetil 500 mg tablet 500 mg PO BID #20 tabs 01/03/21 codeine 10 mg-guaifenesin 100 mg/5 10 ml PO Q4-6H PRN cough #237 mL 01/03/21 mL oral liquid prednisone 20 mg tablet 40 mg (2 x 20 mg) PO DAILY #10 tabs 01/03/21 doxycycline hyclate 100 mg tablet 100 mg PO Q12H 14 days #28 tabs 04/19/21 metronidazole 500 mg tablet 500 mg PO BID 14 days #28 tabs 04/19/21 lidocaine 5 % topical patch 1 patch topical DAILY #15 ea 01/03/22 cyclobenzaprine 5 mg tablet 5 mg PO BEDTIME PRN muscle spasm 09/04/22 #4 tabs ketorolac 10 mg tablet 10 mg PO Q6H PRN pain 5 days #20 09/04/22 tabs oxycodone 5 mg tablet 5 mg PO Q4H PRN pain #10 tabs 09/05/22 prednisone 20 mg tablet 60 mg (3 x 20 mg) PO DAILY 5 days 09/05/22 #15 tabs benzonatate 200 mg capsule 200 mg PO TID PRN cough #30 caps 12/30/22 cefuroxime axetil 500 mg tablet 500 mg PO BID 7 days #14 tabs 12/30/22 acetaminophen 500 mg capsule 500 mg PO QID PRN pain #14 caps 03/31/23 cyclobenzaprine 10 mg tablet 10 mg PO TID PRN muscle spasm #7 03/31/23 tabs levofloxacin 500 mg tablet 500 mg PO DAILY #6 tabs 03/31/23 Allergies Allergy/AdvReac Type Severity Reaction Status Date / Time morphine Allergy Mild Rash Verified 12/30/22 19:40 Review of Systems Review of Systems: Yes all other systems are reviewed and are negative [facility] Past Medical History Medical History Hypertension Surgical History No pertinent past surgical history No pertinent past surgical history Social History Social History Alcohol intake: current Alcohol intake frequency: holidays/special occasions only Patient Tobacco Use Status: Never used Tobacco Smoked in Last 30 Days: No Use of substances other than those prescribed or required for medical reasons: No Advance Directives: No Advance Directives Information Provided: Yes Physical Exam ED Vital Signs: BMI result Body Mass Index 42.0 Appearance: Alert. Oriented X3. No acute distress. ENT: Pharynx normal. Oral Mucosa moist Neck: Normal inspection. Neck supple. CVS: Normal heart rate and rhythm. Pulses normal. Respiratory: No respiratory distress. Equal air entry bilateral, no wheezing/rales/rhonchi Skin: Skin warm and dry. Normal skin color. Normal skin turgor. Extremities: No lower extremity edema. Neuro: Oriented X 3. Course Course Course Narrative: This is an RME: Additional HPI, ROS, PE not included below will be deferred to primary provider. 32 yo f presents w/ sore throat radiation to ears x 3 days. Fatigue and malise as well Plan- viral tests Medications Administered Discontinued Medications Generic Name Dose Route Start Last Admin Trade Name Deionq PRN Reason Stop Dose Admin Cefuroxime Axetil 500 mg 12/30/22 22:39 12/30/22 22:52 Cefuroxime Axetil 500 Mg Tablet PO 12/30/22 22:40 500 mg ONCE ONE Administration Guaifenesin/Codeine Phosphate 10 ml 12/30/22 22:40 12/30/22 22:52 Guaifen/Codeine Sf 200/20/10ml 10 Ml Liquid PO 12/30/22 22:41 10 ml ONCE ONE Administration Medical Decision Making Medical Decision Making [facility] Narrative: Patient has acute bronchitis URI COVID and strep negative will give her Ceftin and Tessalon Lab Data [facility] Lab Attestation statement: I reviewed the patient's lab results. Labs: Lab Results 12/30/22 Range/Units 19:43 COVID-19 ([facility]) Negative (Negative) COVID-19 Clin Com See Note S. pyogenes GrpA MAULIK Negative (Negative) Discharge Plan Discharge Clinical Impression: Acute bronchitis Patient Disposition: Home, Self-Care Instructions: Acute Bronchitis (ED) Additional Instructions: Take antibiotics as adv Medication for sore throat as prescribed Follow with PCP if not better Prescriptions: New benzonatate 200 mg capsule 200 mg PO TID PRN (Reason: cough) Qty: 30 0RF cefuroxime axetil 500 mg tablet 500 mg PO BID 7 Days Qty: 14 0RF No Action azithromycin 250 mg tablet See Rx Instructions .ROUTE .COMPLEX Qty: 6 0RF Rx Instructions: take 500 mg today (day 1), then 250 mg for 4 days (days 2-5) acetaminophen [Tylenol Extra Strength] 500 mg tablet 1,000 mg PO QID PRN (Reason: fever or pain) Qty: 14 0RF prednisone 20 mg tablet 40 mg PO DAILY Qty: 10 0RF codeine-guaifenesin 10-100 mg/5 mL liquid 10 ml PO Q4-6H PRN (Reason: cough) Qty: 237 0RF cefuroxime axetil 500 mg tablet 500 mg PO BID Qty: 20 0RF metronidazole 500 mg tablet 500 mg PO BID 14 Days Qty: 28 0RF doxycycline hyclate 100 mg tablet 100 mg PO Q12H 14 Days Qty: 28 0RF lidocaine 5 % adhesive patch,medicated 1 patch topical DAILY Qty: 15 0RF Rx Instructions: leave on most painful area for up to 12 hrs ketorolac 10 mg tablet 10 mg PO Q6H PRN (Reason: pain) 5 Days Qty: 20 0RF Rx Instructions: Patient received Toradol in the emergency room. cyclobenzaprine 5 mg tablet 5 mg PO BEDTIME PRN (Reason: muscle spasm) Qty: 4 0RF prednisone 20 mg tablet 60 mg PO DAILY 5 Days Qty: 15 0RF oxycodone 5 mg tablet 5 mg PO Q4H PRN (Reason: pain) Qty: 10 0RF Rx Instructions: Patient may request partial fill; Partial Fill upon patient request. levofloxacin 500 mg tablet 500 mg PO DAILY Qty: 6 0RF cyclobenzaprine 10 mg tablet 10 mg PO TID PRN (Reason: muscle spasm) Qty: 7 0RF acetaminophen 500 mg capsule 500 mg PO QID PRN (Reason: pain) Qty: 14 0RF Interventions: ED Discharge Assessment Last Done: 12/30/22 22:54 Discharge Date/Time: 12/30/22 22:54 Print Language: Argentine
[2022-12-30 20:01] LABS: IDNOW Serial# 6674DD1D
[2022-12-30 20:02] LABS: Strep A Nucleic Acid Negative (Negative)
[2022-12-30 22:12] LABS: COVID-19 Test Negative (Negative); IDNOW Serial# 08D9AD1C
[2022-12-30] MEDS: guaiFEN/Codeine SF 200/20/10ML 10 ML LIQUID PO (22:52)
== END 2022-12-30 22:54 | disposition home or self-care (01) ==
PROVIDERS: Physician Assistant; Emergency Provider Internal Medicine
DX: J02.9 Acute pharyngitis, unspecified (principal); I10 Essential (primary) hypertension; Z11.52 Encounter for screening for COVID-19
CPT/HCPCS: 87635; 87651; 99282; 99283

== ENCOUNTER 2023-03-30 19:39 | Emergency (ER) | payer SELFPAY ==
[2023-03-30 20:14] VITALS: BP 161/83; PULSE 73; RESP 18; TEMP 36.8; O2SAT 100; BMI 43.0
[2023-03-30 20:46] LABS: Appearance Urine Clear; Color Urine Yellow; Glucose Urine UA Negative (Negative); Leukocyte Esterase Urine Trace (Negative); Nitrite Urine Negative (Negative); UMIC TRIGGER UACC YES; Urine Blood Moderate (2+) (Negative); Urine Ketones Negative (Negative); Urine Protein Negative (Neg-Trace)
[2023-03-30 20:48] LABS: Bacteria Urine None Seen (None Seen); Hyaline Casts Urine 0-2 /LPF (0-2); RBC Urine >20 /HPF (0-2); Squamous Epithelial Cell Urine 0-2 /HPF (0-2); UACC Culture Trigger YES
[2023-03-30 23:47] VITALS: BP 158/92; PULSE 84; RESP 18; O2SAT 98
[2023-03-30] MEDS: Ibuprofen 600 MG TABLET PO (23:51)
[2023-03-31 01:47] VITALS: BP 155/86; PULSE 66; RESP 14; TEMP 36.5; O2SAT 100
--- NOTE | 2023-03-31 01:54 | PC.NURSE ---
Pt ca&ox4, no signs of distress. Pt reports 10/10 bilateral flank pain with onset 03/28/23 that has progressively worsen and radiates to lower extremities with more pain in rt leg. Pt denies abdominal jeffers, N/V/D/Pain on urination. Pt reports having her period a 2nd time this month which is unusual. Plan of care ongoing.
[2023-03-31 02:34] LABS: UPreg QC Valid YES; Urine Pregnancy NEGATIVE (NEGATIVE)
--- NOTE | 2023-03-31 02:36 | ED.GENADULT ---
HPI - General Adult General Chief complaint: Back Pain/Injury Stated complaint: lower back pain radiating down both legs Time Seen by Provider: 03/31/23 02:26 Source: patient Mode of arrival: ambulatory Limitations: no limitations History of Present Illness HPI narrative: Patient comes to the emergency room complaining of lower back pain. Patient states that the pain is mostly around the coccyx area radiating towards the lower extremities bilaterally. Patient denies urinary/fecal incontinence/retention. Patient states it started hurting today. Patient denies flank pain. Patient complaining of dysuria, no fever or chills. Patient denies nausea vomiting or diarrhea. Patient denies drug use Related Data Previous Rx's Medication Instructions Recorded acetaminophen 500 mg tablet 1,000 mg (2 x 500 mg) PO QID PRN 01/02/21 (Tylenol Extra Strength) fever or pain #14 tabs azithromycin 250 mg tablet See Rx Instructions PO .COMPLEX #6 01/02/21 tabs cefuroxime axetil 500 mg tablet 500 mg PO BID #20 tabs 01/03/21 codeine 10 mg-guaifenesin 100 mg/5 10 ml PO Q4-6H PRN cough #237 mL 01/03/21 mL oral liquid prednisone 20 mg tablet 40 mg (2 x 20 mg) PO DAILY #10 tabs 01/03/21 doxycycline hyclate 100 mg tablet 100 mg PO Q12H 14 days #28 tabs 04/19/21 metronidazole 500 mg tablet 500 mg PO BID 14 days #28 tabs 04/19/21 lidocaine 5 % topical patch 1 patch topical DAILY #15 ea 01/03/22 cyclobenzaprine 5 mg tablet 5 mg PO BEDTIME PRN muscle spasm 09/04/22 #4 tabs ketorolac 10 mg tablet 10 mg PO Q6H PRN pain 5 days #20 09/04/22 tabs oxycodone 5 mg tablet 5 mg PO Q4H PRN pain #10 tabs 09/05/22 prednisone 20 mg tablet 60 mg (3 x 20 mg) PO DAILY 5 days 09/05/22 #15 tabs benzonatate 200 mg capsule 200 mg PO TID PRN cough #30 caps 12/30/22 cefuroxime axetil 500 mg tablet 500 mg PO BID 7 days #14 tabs 12/30/22 acetaminophen 500 mg capsule 500 mg PO QID PRN pain #14 caps 03/31/23 cyclobenzaprine 10 mg tablet 10 mg PO TID PRN muscle spasm #7 03/31/23 tabs levofloxacin 500 mg tablet 500 mg PO DAILY #6 tabs 03/31/23 Allergies Allergy/AdvReac Type Severity Reaction Status Date / Time morphine Allergy Mild Rash Verified 12/30/22 19:40 Review of Systems Review of Systems: Constitutional : No Weight loss, No Fever, No Chills, No Night Sweats, No Fatigue, No Malaise ENT/Mouth : No Hearing loss, No Ear Pain, No Nasal Congestion, No Sinus Pain, No Hoarseness, No sore throat, No Rhinorrhea, No Swallowing Difficulty Eyes: No Eye Pain, No Swelling, No Redness, No Foreign Body, No Discharge, No Vision Changes Cardiovascular : No Chest Pain, No SOB, No Dyspnea on Exertion, No Orthopnea, No Edema, No Palpitations Respiratory : No Cough, No Sputum, No Wheezing, No Smoke Exposure, No Dyspnea Gastrointestinal : No Nausea, No Vomiting, No Diarrhea, No Constipation, No abdominal Pain, No Hematochezia, No Melena Genitourinary : no irregular bleeding, complaining of Dysuria, No Urinary Frequency, No Hematuria, No Urinary Incontinence, No Urgency, No Flank Pain, No Urinary Flow Changes, No Hesitancy Musculoskeletal : Complaining of pain in the coccyx area radiating towards bilateral lower extremities, No joint pain, No Myalgias, No Joint Swelling Skin : No Skin Lesions, No rash Neuro : No Weakness, No Numbness, No Paresthesias, No Loss of Consciousness, No Dizziness, No Headache Psych : No Anxiety/Panic, No Depression, No SI/HI/AH/VH, No Social Issues, Heme/Lymph: No Bruising, No Bleeding,No Lymphadenopathy Endocrine : No Polyuria, No Polydipsia, No Temperature Intolerance PMFSH Past Medical History Onset Date is defined in the Problem List Problems that require an onset date and time if occurred within 24 hrs of arrival to the ED Aortic Dissection and Rupture; Neurologic impairment; Cardiopulmonary Arrest; Endotracheal Intubation; Insertion or Replacement of Mechanical Circulatory Assist Device Medical History Hypertension Surgical History No pertinent past surgical history No pertinent past surgical history Social History Social History Alcohol intake: current Alcohol intake frequency: holidays/special occasions only Patient Tobacco Use Status: Never used Tobacco Smoked in Last 30 Days: No Use of substances other than those prescribed or required for medical reasons: No Advance Directives: No Advance Directives Information Provided: Yes Physical Exam ED Vital Signs: Vital Signs - 24 hr 03/30/23 20:14 03/30/23 23:47 03/31/23 01:47 Temperature 98.3 F 97.7 F Pulse Rate 73 84 66 Respiratory Rate 18 18 14 Blood Pressure 161/83 H 158/92 H 155/86 H Pulse Oximetry 100 98 100 Oxygen Delivery Method Room Air Room Air Room Air BMI result Body Mass Index 43.0 Const Other: Appearance: Alert. Oriented X3. No acute distress. Eyes: Pupils equal, round and reactive to light. ENT: Pharynx normal. Neck: Normal inspection. Neck supple. No lymph nodes noted. No crepitus CVS: Normal heart rate and rhythm. Pulses normal. Normal S1 and S2 Respiratory: No respiratory distress. Breath sounds normal. No Wheezing. No rales Abdomen: Soft and nontender. No rigidity. No distention. Back: Negative CVA tenderness bilaterally, pain to palpation in lower lumbar/higher coccyx area, patient ambulatory Skin: Skin warm and dry. Normal skin color. Normal skin turgor. Extremities: No lower extremity edema. No Lacerations. No Rash Neuro: Oriented X 3. No motor deficit. No sensory deficit. Moving all extremities. No slurred speech. CN 2 through 12 grossly intact Psych: calm, cooperative, normal affect Course Course Course Narrative: -I discussed the labs with the patient, hematology is at baseline, patient has chronic anemia, chemistry unremarkable, LFTs normal urine positive for UTI, negative for -I discussed with the patient that the pain in the back is musculoskeletal. This is not typical area for pain for kidney stones. Patient has no CVA tenderness. Patient well-appearing, no nausea vomiting. Kidney stones are not suspected, pyelonephritis not suspected. For back pain, patient was given IM Toradol and cyclobenzaprine -patient does have a UTI, patient was given the 1st dose of antibiotics in the ED, levofloxacin p.o. Medications Administered Discontinued Medications Generic Name Dose Route Start Last Admin Trade Name Deionq PRN Reason Stop Dose Admin Ibuprofen 600 mg 03/30/23 23:48 03/30/23 23:51 Ibuprofen 600 Mg Tablet PO 03/30/23 23:49 600 mg ONCE ONE Administration Medical Decision Making Differential Diagnosis Differential Diagnoses: The differential diagnosis associated with the presentation includes (Ureterolithiasis, pyelonephritis, UTI, musculoskeletal pain, sciatica) Lab Data MDM Lab Attestation statement: I reviewed the patient's lab results. Labs: Lab Results 03/30/23 Range/Units 20:39 Urine Color Yellow Urine Appearance Clear Urine pH 6.0 (5.0-9.0) Ur Specific [place] 1.020 (1.005-1.025) Urine Protein Negative (Neg-Trace) mg/dL Urine Glucose (UA) Negative (Negative) mg/dL Urine Ketones Negative (Negative) mg/dL Urine Blood Moderate (2+) H (Negative) Urine Nitrite Negative (Negative) Ur Leukocyte Esterase Trace H (Negative) Urine RBC >20 H (0-2) /HPF Urine WBC 6-10 H (0-5) /HPF Ur Squamous Epith Cells 0-2 (0-2) /HPF Urine Bacteria None Seen (None Seen) Hyaline Casts 0-2 (0-2) /LPF Urine Test NEGATIVE (NEGATIVE) Independent Historian Clinical information obtained from an independent historian. History obtained from or confirmed by: Spouse Discharge Plan Discharge Clinical Impression: UTI (urinary tract infection), Lower back pain Patient Disposition: Home, Self-Care Instructions: Urinary Tract Infection in Women (DC), Low Back Strain (ED) Additional Instructions: Please follow-up with your primary care physician tomorrow. If you have any worsening or new symptoms, please return to the emergency room or call 911 Prescriptions: New levofloxacin 500 mg tablet 500 mg PO DAILY Qty: 6 0RF cyclobenzaprine 10 mg tablet 10 mg PO TID PRN (Reason: muscle spasm) Qty: 7 0RF acetaminophen 500 mg capsule 500 mg PO QID PRN (Reason: pain) Qty: 14 0RF No Action azithromycin 250 mg tablet See Rx Instructions .ROUTE .COMPLEX Qty: 6 0RF Rx Instructions: take 500 mg today (day 1), then 250 mg for 4 days (days 2-5) acetaminophen [Tylenol Extra Strength] 500 mg tablet 1,000 mg PO QID PRN (Reason: fever or pain) Qty: 14 0RF prednisone 20 mg tablet 40 mg PO DAILY Qty: 10 0RF codeine-guaifenesin 10-100 mg/5 mL liquid 10 ml PO Q4-6H PRN (Reason: cough) Qty: 237 0RF cefuroxime axetil 500 mg tablet 500 mg PO BID Qty: 20 0RF metronidazole 500 mg tablet 500 mg PO BID 14 Days Qty: 28 0RF doxycycline hyclate 100 mg tablet 100 mg PO Q12H 14 Days Qty: 28 0RF lidocaine 5 % adhesive patch,medicated 1 patch topical DAILY Qty: 15 0RF Rx Instructions: leave on most painful area for up to 12 hrs ketorolac 10 mg tablet 10 mg PO Q6H PRN (Reason: pain) 5 Days Qty: 20 0RF Rx Instructions: Patient received Toradol in the emergency room. cyclobenzaprine 5 mg tablet 5 mg PO BEDTIME PRN (Reason: muscle spasm) Qty: 4 0RF prednisone 20 mg tablet 60 mg PO DAILY 5 Days Qty: 15 0RF oxycodone 5 mg tablet 5 mg PO Q4H PRN (Reason: pain) Qty: 10 0RF Rx Instructions: Patient may request partial fill; Partial Fill upon patient request. benzonatate 200 mg capsule 200 mg PO TID PRN (Reason: cough) Qty: 30 0RF cefuroxime axetil 500 mg tablet 500 mg PO BID 7 Days Qty: 14 0RF Stand Alone Forms: Work/School Release
[2023-03-31] MEDS: Cyclobenzaprine HCl 10 MG TABLET PO (02:45)
[2023-03-31] MEDS: Ketorolac Tromethamine 60 MG/2 ML VIAL IM (02:45)
[2023-03-31] MEDS: levoFLOXacin 500 MG TABLET PO (02:45)
== END 2023-03-31 03:01 | disposition home or self-care (01) ==
PROVIDERS: Emergency Provider Emergency Medicine
DX: N39.0 Urinary tract infection, site not specified (principal); M54.50 Low back pain, unspecified; I10 Essential (primary) hypertension; Z79.899 Other long term (current) drug therapy
CPT/HCPCS: 81001; 81025; 87086; 96372; 99284; J1885

== ENCOUNTER 2023-09-18 19:09 | Emergency (ER) | payer OTHER, SELFPAY ==
--- NOTE | ~2023-09-18 | CT_ITS ---
EXAMINATION: CT ABDOMEN AND PELVIS WITHOUT CONTRAST CLINICAL INFORMATION: Right lower quadrant pain and elevated white blood cell count COMPARISON: 01/03/2022 TECHNIQUE: Multidetector volumetric imaging was performed from the superior aspect of the liver through the pubic symphysis. Sagittal and coronal reformatted images were obtained on the technologist's workstation. This CT examination was performed using dose optimization techniques as appropriate, variously including the following: *Automated exposure control *Adjustment of mA and/or kV according to patient size (this includes techniques or standardized protocols for targeted exams where dose is matched to indication/reason for exam; i.e. extremities or head) *Use of iterative reconstruction technique DLP: 693 mGy-cm FINDINGS: LUNG BASES: The visualized lung bases are unremarkable. LIVER, GALLBLADDER, AND BILIARY TREE: The liver is normal in size, shape, and attenuation. No focal hepatic lesion or biliary ductal dilatation is present. The gallbladder is unremarkable with no evidence of radiopaque gallstones, gallbladder wall thickening, or obvious pericholecystic inflammatory changes. PANCREAS: Unremarkable. SPLEEN: Unremarkable. ADRENAL GLANDS: Unremarkable. KIDNEYS AND URETERS: The kidneys are normal in size, shape, and attenuation. No hydronephrosis or hydroureter. Numerous bilateral nonobstructing renal calculi are identified within the calyces numbering at least 10 in the right kidney and 12 and the left, measuring up to 3 mm in diameter in the right kidney (lower pole and interpolar region) and 3 mm and the left kidney (interpolar region). No perinephric stranding. BLADDER: Unremarkable. GASTROINTESTINAL TRACT: Stomach, small bowel, and colon are normal in caliber. No bowel wall thickening or surrounding inflammatory changes. Mild colonic diverticulosis, most notably in the descending and sigmoid colon. Appendix is normal. No intraperitoneal free fluid or free air. ABDOMINAL WALL: No significant hernia is appreciated. LYMPH NODES: Normal. VASCULAR: Unremarkable. PELVIC VISCERA: scar is present in the region of the lower uterine segment. No abnormalities are identified at the uterus and ovaries. OSSEOUS STRUCTURES: Unremarkable. CT/CT abdomen pelvis wo IV con IMPRESSION: 1. No acute intra-abdominal or intrapelvic abnormalities. Normal appendix. 2. Numerous bilateral nonobstructing renal calculi. No evidence of obstructive uropathy. 3. Mild colonic diverticulosis without evidence of acute diverticulitis. Fleischner guidelines were followed.
--- NOTE | ~2023-09-18 | US_ITS ---
EXAMINATION: US PELVIS US PELVIS OVARIAN DOPPLER CLINICAL INFORMATION: Right pelvic pain. Rule out ovarian torsion. LMP 09/05/2023. History of C-sections x3. Vaginal bleeding x2 days. COMPARISON: CT from 09/18/2023, ultrasound dated 12/16/2018 TECHNIQUE: Ultrasound of the pelvis is performed using both transabdominal and transvaginal transducers along with Doppler. Spectral Doppler assessment was performed through both ovaries appear Transvaginal imaging was performed in attempt to better visualize the ovaries, though the ovaries are only identified transabdominally on this study. FINDINGS: Uterus: The uterus is anteverted and retroflexed and measures 12.5 x 4.5 x 6.4 cm. The double wall endometrial thickness is 12 mm. Trace fluid is noted within the endocervical canal. Nabothian cysts are present. The uterus is smooth in contour and has normal myometrial echogenicity. No visible fibroid. Adnexa: Both ovaries are only identified transabdominally. There is normal color flow to the adnexa. There is no ovarian torsion. There is trace intraperitoneal free fluid in the pelvis. Right ovary measures 3.6 x 1.6 x 2.6 cm. No cysts or lesions. Left ovary measures 3 x 2.4 x 2.7 cm. There is a 2.5 cm simple ovarian follicle at the left ovary. US/US pelvic and transvaginal IMPRESSION: 1. No evidence of ovarian torsion. 2. A 2.5 cm simple left ovarian follicle.
--- NOTE | ~2023-09-18 | US_ITS ---
EXAMINATION: US PELVIS US PELVIS OVARIAN DOPPLER CLINICAL INFORMATION: Right pelvic pain. Rule out ovarian torsion. LMP 09/05/2023. History of C-sections x3. Vaginal bleeding x2 days. COMPARISON: CT from 09/18/2023, ultrasound dated 12/16/2018 TECHNIQUE: Ultrasound of the pelvis is performed using both transabdominal and transvaginal transducers along with Doppler. Spectral Doppler assessment was performed through both ovaries appear Transvaginal imaging was performed in attempt to better visualize the ovaries, though the ovaries are only identified transabdominally on this study. FINDINGS: Uterus: The uterus is anteverted and retroflexed and measures 12.5 x 4.5 x 6.4 cm. The double wall endometrial thickness is 12 mm. Trace fluid is noted within the endocervical canal. Nabothian cysts are present. The uterus is smooth in contour and has normal myometrial echogenicity. No visible fibroid. Adnexa: Both ovaries are only identified transabdominally. There is normal color flow to the adnexa. There is no ovarian torsion. There is trace intraperitoneal free fluid in the pelvis. Right ovary measures 3.6 x 1.6 x 2.6 cm. No cysts or lesions. Left ovary measures 3 x 2.4 x 2.7 cm. There is a 2.5 cm simple ovarian follicle at the left ovary. US/US pelvic ovarian doppler IMPRESSION: 1. No evidence of ovarian torsion. 2. A 2.5 cm simple left ovarian follicle.
[2023-09-18 19:37] LABS: MANUAL DIFF FLAG NO
[2023-09-18 19:40] LABS: Basophils Absolute Auto 0.1 X10*3/uL (0.0-0.2); Basophils Percent Auto 0.6 % (0-2); Eosinophils Absolute Auto 0.1 X10*3/uL (0.0-0.4); Eosinophils Percent Auto 1.1 % (0-4); Hematocrit 30.9 % (37.0-47.0); Hemoglobin 9.7 g/dl (12.0-16.0); Imm Gran Abs Auto 0.07 X10*3/uL (0.00-0.03); Imm Gran Pct Auto 0.5 % (0.0-0.4); Lymphocytes Absolute Auto 3.7 X10*3/uL (1.2-4.9); Lymphocytes Percent Auto 28.3 % (20-40); Mean Corpuscular HGB Conc 31.4 g/dl (31.0-35.0); Mean Corpuscular Hemoglobin 24.3 pg (27.0-33.0); Mean Corpuscular Volume 77.3 fL (80.0-98.0); Mean Platelet Volume 9.3 fL (9.4-12.3); Monocytes Absolute Auto 0.8 X10*3/uL (0.1-1.2); Neutrophils Absolute Auto 8.3 x10*3/uL (2.0-8.3); Neutrophils Percent Auto 63.5 % (45-73); Platelet Count 332 X10*3/uL (160-400); Red Cell Distribution Width 17.2 % (11.0-16.0); White Blood Count 13.1 X10*3/uL (4.8-10.8)
[2023-09-18 19:45] VITALS: BP 190/87; PULSE 73; RESP 16; TEMP 36.6; O2SAT 100; BMI 41.5
--- NOTE | 2023-09-18 19:52 | ED.GENADULT ---
HPI - General Adult General Chief complaint: Abdominal Pain Stated complaint: abd cramping and pressure in pelvic area Time Seen by Provider: 09/18/23 23:21 Source: patient Mode of arrival: ambulatory Limitations: no limitations History of Present Illness ED Provider: DR. Skelton HPI narrative: 33-year-old female came in for evaluation of abdominal pain. Two days of lower abdominal pain, intermittent vaginal bleeding patient reported vaginal blood clotting, patient used 2 pads all day today, most of the pain in the right lower quadrant and in the pelvic area. Patient had tubal ligation declined chance of being . No vaginal bleed or discharge, no dysuria, no frequency urination. Past abdominal surgical history significant for tubal ligation, and C-sections. Related Data Previous Rx's ?Medication ?Instructions ?Recorded acetaminophen 500 mg tablet 1,000 mg (2 x 500 mg) PO QID PRN 01/02/21 (Tylenol Extra Strength) fever or pain #14 tabs azithromycin 250 mg tablet See Rx Instructions PO .COMPLEX #6 01/02/21 tabs cefuroxime axetil 500 mg tablet 500 mg PO BID #20 tabs 01/03/21 codeine 10 mg-guaifenesin 100 mg/5 10 ml PO Q4-6H PRN cough #237 mL 01/03/21 mL oral liquid prednisone 20 mg tablet 40 mg (2 x 20 mg) PO DAILY #10 tabs 01/03/21 doxycycline hyclate 100 mg tablet 100 mg PO Q12H 14 days #28 tabs 04/19/21 metronidazole 500 mg tablet 500 mg PO BID 14 days #28 tabs 04/19/21 lidocaine 5 % topical patch 1 patch topical DAILY #15 ea 01/03/22 cyclobenzaprine 5 mg tablet 5 mg PO BEDTIME PRN muscle spasm 09/04/22 #4 tabs ketorolac 10 mg tablet 10 mg PO Q6H PRN pain 5 days #20 09/04/22 tabs oxycodone 5 mg tablet 5 mg PO Q4H PRN pain #10 tabs 09/05/22 prednisone 20 mg tablet 60 mg (3 x 20 mg) PO DAILY 5 days 09/05/22 #15 tabs benzonatate 200 mg capsule 200 mg PO TID PRN cough #30 caps 12/30/22 cefuroxime axetil 500 mg tablet 500 mg PO BID 7 days #14 tabs 12/30/22 acetaminophen 500 mg capsule 500 mg PO QID PRN pain #14 caps 03/31/23 cyclobenzaprine 10 mg tablet 10 mg PO TID PRN muscle spasm #7 03/31/23 tabs levofloxacin 500 mg tablet 500 mg PO DAILY #6 tabs 03/31/23 Allergies Allergy/AdvReac Type Severity Reaction Status Date / Time morphine Allergy Mild Rash Verified 09/18/23 19:50 Review of Systems Review of Systems: All other systems are reviewed and are negative Constitutional: Reports as per HPI and Reports no additional constitutional complaints Eyes: Reports as per HPI and Reports no additional eye complaints Reports system reviewed and no additional complaints, except as documented Cardiovascular: Reports as per HPI and Reports no additional cardiovascular complaints Respiratory: Reports as per HPI and Reports no additional respiratory complaints Gastrointestinal: Reports as per HPI and Reports no additional gastrointestinal complaints Genitourinary: Reports no additional female genitourinary complaints Musculoskeletal: Reports no additional musculoskeletal complaints Skin/Breast: Reports system reviewed and no additional complaints, except as docu Psychiatric: Reports no additional psychiatric complaints Endocrine: Reports no additional endocrine complaints Hematologic/Lymphatic: Reports no additional hematologic/lymphatic complaints Allergic/Immunologic: Reports no additional allergic/immunologic complaints Reports system reviewed and no additional complaints, except as documented and Reports Abnormal speech present [facility] Past Medical History Medical History Hypertension Surgical History No pertinent past surgical history No pertinent past surgical history Social History Social History Alcohol intake: current Alcohol intake frequency: holidays/special occasions only Alcohol type: wine Patient Tobacco Use Status: Never used Tobacco Smoked in Last 30 Days: No Use of substances other than those prescribed or required for medical reasons: No Any prior treatment program specific to substance use: No Advance Directives: No Advance Directives Information Provided: Yes Do you have a plan to hurt others: No Plan Physical Exam ED Vital Signs: Vital Signs - 24 hr 09/18/23 19:45 09/18/23 23:19 09/19/23 00:00 Temperature 97.8 F 98.3 F 98.3 F Pulse Rate 73 79 71 Respiratory Rate 16 18 18 Blood Pressure 190/87 H 149/95 H 112/63 Pulse Oximetry 100 97 99 Oxygen Delivery Method Room Air Room Air Room Air BMI result Body Mass Index 41.5 Vital signs have been reviewed and appear to be correct. Blood pressure elevated. Heart rate normal. Respiratory rate normal. Temperature normal. Oxygen saturation normal. Appearance: Alert. Oriented X3. No acute distress. Head: Normal external exam. Normocephalic. Atraumatic. No Barbour signs noted. No raccoon eyes noted Eyes: PERRLA. EOMI. Conjunctiva and sclera normal. Eyelids normal. ENT: TM's Normal. Pharynx normal. Uvula midline. Moist mucous membranes. No trismus noted. No drooling noted. No muffled voice noted. Neck: Normal inspection. Neck supple. FROM. No adenopathy. Thyroid Normal. No meningeal signs. No neck mass noted. CVS: Normal heart rate and rhythm. Heart sound normal. No murmurs noted. Pulses normal throughout. Respiratory: No respiratory distress. Painless inspiration. Breath sounds normal. No wheezes/rales/rhonchi noted. Chest nontender. No accessory muscle usage noted or decreased air movement noted. Abdomen: Soft , RLQ tenderness, no rebound tenderness, no guarding. Bowel sounds normal in all 4 quadrants. No distention noted. No organomegaly noted. No visible injury noted. Back: No CVA tenderness. Full range of motion noted. Skin: Skin warm and dry. Normal skin color. Normal skin turgor. No rashes/lesions/lacerations noted. Extremities: No lower extremity edema. Extremities exhibit normal range of motion. Extremities nontender. Neuro: Oriented X 3. Cranial nerve exam: II-XII are grossly intact No motor deficit. No sensory deficit. Reflexes normal. Course Course Course Narrative: This is an RME done by JOLIE Quiroga: Additional HPI, ROS, PE not included below will be deferred to primary provider. 33 yo female presenting with abdominal cramping, vaginal bleeding and weakness since yesterday. Reports initially bleeding through 2 tampons, now using only liners. LMP 1 week ago, hx of tubal ligation in 2015. Denies fevers, chills, vomiting. Appearance: Alert.? Oriented X3.? No acute cardiopulmonary distress distress.? Head: Normocephalic, atraumatic, no step-offs or deformities Neck: Normal inspection.? Neck supple.? CVS: Pulses normal.? Respiratory: No respiratory distress.? Skin: ? Normal skin color. Extremities: 5/5 strength to bilateral upper and lower extremities Neuro: Oriented X 3.? No motor deficit.? No sensory deficit. Reevaluation(s) Reevaluation #1: Right abdominal pain, CT abdomen pelvis is unremarkable, ovarian ultrasound with no evidence ovarian torsion. Will discharge after official reading of the ultrasound signed out to Dr. Bucio Time: 02:00 Medical Decision Making Differential Diagnosis Differential Diagnoses: The differential diagnosis associated with the presentation includes (Abnormal vaginal bleeding, abnormal , acute appendicitis, severe anemia, electrolyte derangement, ovarian cyst.) Admission/Observation Consideration of admission/observation: Escalation of care including admission/observation considered Lab Data MDM Lab Attestation statement: I reviewed the patient's lab results. 09/18/23 19:33 09/18/23 19:33 Labs: Lab Results 09/18/23 09/19/23 Range/Units 19:33 00:17 WBC 13.1 H (4.8-10.8) X10*3/uL RBC 4.00 L (4.20-5.50) X10*6/uL Hgb 9.7 L (12.0-16.0) g/dl Hct 30.9 L (37.0-47.0) % MCV 77.3 L (80.0-98.0) fL MCH 24.3 L (27.0-33.0) pg MCHC 31.4 (31.0-35.0) g/dl RDW 17.2 H (11.0-16.0) % Plt Count 332 (160-400) X10*3/uL MPV 9.3 L (9.4-12.3) fL Immature Gran % (Auto) 0.5 H (0.0-0.4) % Neut % (Auto) 63.5 (45-73) % Lymph % (Auto) 28.3 (20-40) % Brooke % (Auto) 6.0 (2-11) % Eos % (Auto) 1.1 (0-4) % Baso % (Auto) 0.6 (0-2) % Lymph # (Auto) 3.7 (1.2-4.9) X10*3/uL Brooke # (Auto) 0.8 (0.1-1.2) X10*3/uL Eos # (Auto) 0.1 (0.0-0.4) X10*3/uL Baso # (Auto) 0.1 (0.0-0.2) X10*3/uL Abs Immat Gran (auto) 0.07 H (0.00-0.03) X10*3/uL Absolute Neuts (auto) 8.3 (2.0-8.3) x10*3/uL Absolute Nucleated RBC 0.000 (0.0-0.012) X10*3/uL Nucleated RBC % (auto) 0.0 (0.0-0.2) /100WBC Sodium 140 (135-145) mmol/L Potassium 4.5 (3.3-5.1) mmol/L Chloride 104 (96-108) mmol/L Carbon Dioxide 27 (22-29) mmol/L Anion Gap 14 (12-20) BUN 12 (9-16) mg/dL Creatinine 0.77 (0.5-1.4) mg/dL Estim Creat Clear Calc 108.0 Estimated GFR > 60 Random Glucose 87 (60-115) mg/dL Calcium 9.6 (8.4-10.2) mg/dL Magnesium 1.9 (1.6-2.6) mg/dL Total Bilirubin 0.2 (0.0-1.0) mg/dL AST 18 (5-31) U/L ALT 21 (0-31) U/L Alkaline Phosphatase 88 (39-117) U/L Total Protein 7.8 (6.5-8.0) g/dL Albumin 4.2 (3.5-5.0) g/dL Lipase 23 (8-78) U/L Beta HCG, Quant < 2 mIU/mL Urine Color Yellow Urine Appearance Cloudy Urine pH 5.5 (5.0-9.0) Ur Specific Darden 1.020 (1.005-1.025) Urine Protein Trace (Neg-Trace) mg/dL Urine Glucose (UA) Negative (Negative) mg/dL Urine Ketones Negative (Negative) mg/dL Urine Blood Negative (Negative) Urine Nitrite Negative (Negative) Ur Leukocyte Esterase Small (1+) H (Negative) Urine RBC 0-2 (0-2) /HPF Urine WBC 6-10 H (0-5) /HPF Ur Squamous Epith Cells 6-10 (0-2) /HPF Urine Bacteria 2+ (None Seen) Hyaline Casts 3-5 (0-2) /LPF Independent Interpretation I performed an independent interpretation of an: CT Scan (Abdomen pelvis:1. No acute intra-abdominal or intrapelvic abnormalities. Normal appendix. 2. Numerous bilateral nonobstructing renal calculi. No evidence of obstructive uropathy. 3. Mild colonic diverticulosis without evidence of acute diverticulitis. ) Radiology Impression Discussion of test interpretation with radiology: I have reviewed the radiologist's reading. Discharge Plan Discharge Clinical Impression: Abdominal pain, Abnormal vaginal bleeding Patient Disposition: Home, Self-Care Instructions: Menorrhagia (ED), Abdominal Pain (ED) Prescriptions: No Action azithromycin 250 mg tablet See Rx Instructions .ROUTE .COMPLEX Qty: 6 0RF Rx Instructions: take 500 mg today (day 1), then 250 mg for 4 days (days 2-5) acetaminophen [Tylenol Extra Strength] 500 mg tablet 1,000 mg PO QID PRN (Reason: fever or pain) Qty: 14 0RF prednisone 20 mg tablet 40 mg PO DAILY Qty: 10 0RF codeine-guaifenesin 10-100 mg/5 mL liquid 10 ml PO Q4-6H PRN (Reason: cough) Qty: 237 0RF cefuroxime axetil 500 mg tablet 500 mg PO BID Qty: 20 0RF metronidazole 500 mg tablet 500 mg PO BID 14 Days Qty: 28 0RF doxycycline hyclate 100 mg tablet 100 mg PO Q12H 14 Days Qty: 28 0RF lidocaine 5 % adhesive patch,medicated 1 patch topical DAILY Qty: 15 0RF Rx Instructions: leave on most painful area for up to 12 hrs ketorolac 10 mg tablet 10 mg PO Q6H PRN (Reason: pain) 5 Days Qty: 20 0RF Rx Instructions: Patient received Toradol in the emergency room. cyclobenzaprine 5 mg tablet 5 mg PO BEDTIME PRN (Reason: muscle spasm) Qty: 4 0RF prednisone 20 mg tablet 60 mg PO DAILY 5 Days Qty: 15 0RF oxycodone 5 mg tablet 5 mg PO Q4H PRN (Reason: pain) Qty: 10 0RF Rx Instructions: Patient may request partial fill; Partial Fill upon patient request. levofloxacin 500 mg tablet 500 mg PO DAILY Qty: 6 0RF cyclobenzaprine 10 mg tablet 10 mg PO TID PRN (Reason: muscle spasm) Qty: 7 0RF acetaminophen 500 mg capsule 500 mg PO QID PRN (Reason: pain) Qty: 14 0RF benzonatate 200 mg capsule 200 mg PO TID PRN (Reason: cough) Qty: 30 0RF cefuroxime axetil 500 mg tablet 500 mg PO BID 7 Days Qty: 14 0RF Referrals: Quentin Morgan MD [Physician] - Print Language: [place]
[2023-09-18 20:08] LABS: Alanine Aminotransferase 21 U/L (0-31); Albumin Level 4.2 g/dL (3.5-5.0); Alkaline Phosphatase 88 U/L (39-117); Anion Gap 14 (12-20); Aspartate Amino Transferase 18 U/L (5-31); Bilirubin Total 0.2 mg/dL (0.0-1.0); Blood Urea Nitrogen 12 mg/dL (9-16); Calcium 9.6 mg/dL (8.4-10.2); Carbon Dioxide 27 mmol/L (22-29); Chloride 104 mmol/L (96-108); Estimated Glomerular Filt Rate > 60; Glucose Random 87 mg/dL (60-115); Lipase 23 U/L (8-78); Magnesium 1.9 mg/dL (1.6-2.6); Potassium 4.5 mmol/L (3.3-5.1); Sodium 140 mmol/L (135-145); Total Protein 7.8 g/dL (6.5-8.0)
[2023-09-18 20:15] LABS: HCG Quantitative < 2 mIU/mL
[2023-09-18 23:19] VITALS: BP 149/95; PULSE 79; RESP 18; TEMP 36.8; O2SAT 97
--- NOTE | 2023-09-18 23:31 | ED_ITS ---
HPI - Abdominal Pain General Chief Complaint: Abdominal Pain Stated Complaint: abd cramping and pressure in pelvic area Time Seen by Provider: 09/18/23 23:21 Source: patient and family Mode of arrival: ambulatory Limitations: no limitations History of Present Illness ED Provider: DR. Skelton HPI narrative: 33-year-old female came in for evaluation of lower abdominal pain Related Data Previous Rx's ?Medication ?Instructions ?Recorded acetaminophen 500 mg tablet 1,000 mg (2 x 500 mg) PO QID PRN 01/02/21 (Tylenol Extra Strength) fever or pain #14 tabs azithromycin 250 mg tablet See Rx Instructions PO .COMPLEX #6 01/02/21 tabs cefuroxime axetil 500 mg tablet 500 mg PO BID #20 tabs 01/03/21 codeine 10 mg-guaifenesin 100 mg/5 10 ml PO Q4-6H PRN cough #237 mL 01/03/21 mL oral liquid prednisone 20 mg tablet 40 mg (2 x 20 mg) PO DAILY #10 tabs 01/03/21 doxycycline hyclate 100 mg tablet 100 mg PO Q12H 14 days #28 tabs 04/19/21 metronidazole 500 mg tablet 500 mg PO BID 14 days #28 tabs 04/19/21 lidocaine 5 % topical patch 1 patch topical DAILY #15 ea 01/03/22 cyclobenzaprine 5 mg tablet 5 mg PO BEDTIME PRN muscle spasm 09/04/22 #4 tabs ketorolac 10 mg tablet 10 mg PO Q6H PRN pain 5 days #20 09/04/22 tabs oxycodone 5 mg tablet 5 mg PO Q4H PRN pain #10 tabs 09/05/22 prednisone 20 mg tablet 60 mg (3 x 20 mg) PO DAILY 5 days 09/05/22 #15 tabs benzonatate 200 mg capsule 200 mg PO TID PRN cough #30 caps 12/30/22 cefuroxime axetil 500 mg tablet 500 mg PO BID 7 days #14 tabs 12/30/22 acetaminophen 500 mg capsule 500 mg PO QID PRN pain #14 caps 03/31/23 cyclobenzaprine 10 mg tablet 10 mg PO TID PRN muscle spasm #7 03/31/23 tabs levofloxacin 500 mg tablet 500 mg PO DAILY #6 tabs 03/31/23 Allergies Allergy/AdvReac Type Severity Reaction Status Date / Time morphine Allergy Mild Rash Verified 09/18/23 19:50 [facility] Past Medical History Medical History Hypertension Surgical History No pertinent past surgical history No pertinent past surgical history Social History Social History Alcohol intake: current Alcohol intake frequency: holidays/special occasions only Patient Tobacco Use Status: Never used Tobacco Do you have a plan to hurt others: No Plan Physical Exam ED Vital Signs: Vital Signs - 24 hr 09/18/23 19:45 09/18/23 23:19 Temperature 97.8 F 98.3 F Pulse Rate 73 79 Respiratory Rate 16 18 Blood Pressure 190/87 H 149/95 H Pulse Oximetry 100 97 Oxygen Delivery Method Room Air Room Air BMI result Body Mass Index 41.5 Medical Decision Making Lab Data 09/18/23 19:33 09/18/23 19:33 Labs: Lab Results 09/18/23 Range/Units 19:33 WBC 13.1 H (4.8-10.8) X10*3/uL RBC 4.00 L (4.20-5.50) X10*6/uL Hgb 9.7 L (12.0-16.0) g/dl Hct 30.9 L (37.0-47.0) % MCV 77.3 L (80.0-98.0) fL MCH 24.3 L (27.0-33.0) pg MCHC 31.4 (31.0-35.0) g/dl RDW 17.2 H (11.0-16.0) % Plt Count 332 (160-400) X10*3/uL MPV 9.3 L (9.4-12.3) fL Immature Gran % (Auto) 0.5 H (0.0-0.4) % Neut % (Auto) 63.5 (45-73) % Lymph % (Auto) 28.3 (20-40) % Bryan % (Auto) 6.0 (2-11) % Eos % (Auto) 1.1 (0-4) % Baso % (Auto) 0.6 (0-2) % Lymph # (Auto) 3.7 (1.2-4.9) X10*3/uL Bryan # (Auto) 0.8 (0.1-1.2) X10*3/uL Eos # (Auto) 0.1 (0.0-0.4) X10*3/uL Baso # (Auto) 0.1 (0.0-0.2) X10*3/uL Abs Immat Gran (auto) 0.07 H (0.00-0.03) X10*3/uL Absolute Neuts (auto) 8.3 (2.0-8.3) x10*3/uL Absolute Nucleated RBC 0.000 (0.0-0.012) X10*3/uL Nucleated RBC % (auto) 0.0 (0.0-0.2) /100WBC Sodium 140 (135-145) mmol/L Potassium 4.5 (3.3-5.1) mmol/L Chloride 104 (96-108) mmol/L Carbon Dioxide 27 (22-29) mmol/L Anion Gap 14 (12-20) BUN 12 (9-16) mg/dL Creatinine 0.77 (0.5-1.4) mg/dL Estim Creat Clear Calc 108.0 Estimated GFR > 60 Random Glucose 87 (60-115) mg/dL Calcium 9.6 (8.4-10.2) mg/dL Magnesium 1.9 (1.6-2.6) mg/dL Total Bilirubin 0.2 (0.0-1.0) mg/dL AST 18 (5-31) U/L ALT 21 (0-31) U/L Alkaline Phosphatase 88 (39-117) U/L Total Protein 7.8 (6.5-8.0) g/dL Albumin 4.2 (3.5-5.0) g/dL Lipase 23 (8-78) U/L Beta HCG, Quant < 2 mIU/mL Discharge Plan Discharge Prescriptions: No Action azithromycin 250 mg tablet See Rx Instructions .ROUTE .COMPLEX Qty: 6 0RF Rx Instructions: take 500 mg today (day 1), then 250 mg for 4 days (days 2-5) acetaminophen [Tylenol Extra Strength] 500 mg tablet 1,000 mg PO QID PRN (Reason: fever or pain) Qty: 14 0RF prednisone 20 mg tablet 40 mg PO DAILY Qty: 10 0RF codeine-guaifenesin 10-100 mg/5 mL liquid 10 ml PO Q4-6H PRN (Reason: cough) Qty: 237 0RF cefuroxime axetil 500 mg tablet 500 mg PO BID Qty: 20 0RF metronidazole 500 mg tablet 500 mg PO BID 14 Days Qty: 28 0RF doxycycline hyclate 100 mg tablet 100 mg PO Q12H 14 Days Qty: 28 0RF lidocaine 5 % adhesive patch,medicated 1 patch topical DAILY Qty: 15 0RF Rx Instructions: leave on most painful area for up to 12 hrs ketorolac 10 mg tablet 10 mg PO Q6H PRN (Reason: pain) 5 Days Qty: 20 0RF Rx Instructions: Patient received Toradol in the emergency room. cyclobenzaprine 5 mg tablet 5 mg PO BEDTIME PRN (Reason: muscle spasm) Qty: 4 0RF prednisone 20 mg tablet 60 mg PO DAILY 5 Days Qty: 15 0RF oxycodone 5 mg tablet 5 mg PO Q4H PRN (Reason: pain) Qty: 10 0RF Rx Instructions: Patient may request partial fill; Partial Fill upon patient request. levofloxacin 500 mg tablet 500 mg PO DAILY Qty: 6 0RF cyclobenzaprine 10 mg tablet 10 mg PO TID PRN (Reason: muscle spasm) Qty: 7 0RF acetaminophen 500 mg capsule 500 mg PO QID PRN (Reason: pain) Qty: 14 0RF benzonatate 200 mg capsule 200 mg PO TID PRN (Reason: cough) Qty: 30 0RF cefuroxime axetil 500 mg tablet 500 mg PO BID 7 Days Qty: 14 0RF Print Language: Slovenian
[2023-09-19] VITALS: BP 112/63; PULSE 71; RESP 18; TEMP 36.8; O2SAT 99
[2023-09-19 00:23] LABS: Appearance Urine Cloudy; Color Urine Yellow; Glucose Urine UA Negative (Negative); Leukocyte Esterase Urine Small (1+) (Negative); Nitrite Urine Negative (Negative); PH 5.5 (5.0-9.0); UMIC TRIGGER UACC YES; Urine Blood Negative (Negative); Urine Ketones Negative (Negative); Urine Protein Trace mg/dL (Neg-Trace)
[2023-09-19 00:30] LABS: Bacteria Urine 2+ (None Seen); RBC Urine 0-2 /HPF (0-2); UACC Culture Trigger YES
[2023-09-19] MEDS: Ibuprofen 600 MG TABLET PO (01:23)
--- NOTE | 2023-09-19 01:26 | PC.NURSE ---
pt has been taken for a ultra sound, steady gait.
--- NOTE | 2023-09-19 05:51 | PC.NURSE ---
Rn reviewed dc instructions with patient, she verablized understanding and denied questions. RN unable to remove patient and/or complete proper dc documentation
== END 2023-09-19 06:30 | disposition home or self-care (01) ==
PROVIDERS: Emergency Medicine; Physician Assistant; Emergency Provider Internal Medicine
DX: R10.2 Pelvic and perineal pain (principal); R10.31 Right lower quadrant pain; N93.9 Abnormal uterine and vaginal bleeding, unspecified
CPT/HCPCS: 36415; 74176; 76830; 76856; 80053; 81001; 83690; 83735; 84702; 85025; 87086; 93975; 99284

== ENCOUNTER 2023-11-27 12:45 | Emergency (ER) | payer SELFPAY ==
--- NOTE | ~2023-11-27 | XR_ITS ---
EXAMINATION: XR CHEST CLINICAL INFORMATION: Cough COMPARISON: None available. TECHNIQUE: 2 views of the chest were obtained. FINDINGS: No significant abnormality is noted involving the heart, lungs, mediastinum, bony thorax or soft tissues. XR/XR chest 2V IMPRESSION: Unremarkable examination. Electronically signed by: Madhav Werner MD 11/27/2023 08:22 PM EDT RP
[2023-11-27 13:22] VITALS: BP 184/87; PULSE 84; RESP 16; TEMP 35.9; O2SAT 98; BMI 42.0
[2023-11-27 14:22] LABS: MANUAL DIFF FLAG NO
[2023-11-27 14:25] LABS: Basophils Absolute Auto 0.1 X10*3/uL (0.0-0.2); Basophils Percent Auto 0.5 % (0-2); Eosinophils Absolute Auto 0.2 X10*3/uL (0.0-0.4); Eosinophils Percent Auto 1.5 % (0-4); Hematocrit 33.1 % (37.0-47.0); Hemoglobin 10.3 g/dl (12.0-16.0); Imm Gran Abs Auto 0.06 X10*3/uL (0.00-0.03); Imm Gran Pct Auto 0.6 % (0.0-0.4); Lymphocytes Absolute Auto 2.9 X10*3/uL (1.2-4.9); Lymphocytes Percent Auto 27.8 % (20-40); Mean Corpuscular HGB Conc 31.1 g/dl (31.0-35.0); Mean Corpuscular Hemoglobin 24.1 pg (27.0-33.0); Mean Corpuscular Volume 77.3 fL (80.0-98.0); Mean Platelet Volume 9.9 fL (9.4-12.3); Monocytes Absolute Auto 0.8 X10*3/uL (0.1-1.2); Monocytes Percent Auto 7.6 % (2-11); Neutrophils Absolute Auto 6.4 x10*3/uL (2.0-8.3); Platelet Count 331 X10*3/uL (160-400); Red Blood Count 4.28 X10*6/uL (4.20-5.50); Red Cell Distribution Width 16.5 % (11.0-16.0); White Blood Count 10.3 X10*3/uL (4.8-10.8)
[2023-11-27 14:37] LABS: Alanine Aminotransferase 18 U/L (0-31); Alkaline Phosphatase 98 U/L (39-117); Anion Gap 12 (12-20); Aspartate Amino Transferase 18 U/L (5-31); Bilirubin Total 0.3 mg/dL (0.0-1.0); Blood Urea Nitrogen 15 mg/dL (9-16); Calcium 9.3 mg/dL (8.4-10.2); Carbon Dioxide 26 mmol/L (22-29); Chloride 107 mmol/L (96-108); Creatinine Clr Calc Pharmacy 107.4; Estimated Glomerular Filt Rate > 60; Glucose Random 77 mg/dL (60-115); Magnesium 2.1 mg/dL (1.6-2.6); Potassium 4.6 mmol/L (3.3-5.1); Sodium 140 mmol/L (135-145); Total Protein 7.7 g/dL (6.5-8.0)
[2023-11-27 14:59] LABS: Influenza A PCR NEGATIVE (Negative); Influenza B PCR NEGATIVE (Negative); Resp Syncy Virus RNA Qual PCR NEGATIVE (Negative); SARS COV2 PCR INHOUSE NEGATIVE (Negative)
[2023-11-27 16:52] VITALS: BP 162/93; PULSE 65; RESP 20; TEMP 36.3; O2SAT 99
[2023-11-27 17:49] VITALS: BP 145/83; PULSE 66; RESP 16; TEMP 36.8; O2SAT 99
[2023-11-27 18:23] LABS: Appearance Urine Clear; Color Urine Yellow; Glucose Urine UA Negative (Negative); Leukocyte Esterase Urine Negative (Negative); Nitrite Urine Negative (Negative); Specific Gravity - Urine 1.025 (1.005-1.025); UPreg QC Valid YES; Urine Blood Negative (Negative); Urine Ketones Trace mg/dL (Negative); Urine Pregnancy NEGATIVE (NEGATIVE); Urine Protein Negative (Neg-Trace)
[2023-11-27 18:33] LABS: Bacteria Urine 1+ (None Seen); RBC Urine 0-2 /HPF (0-2); WBC Urine 0-5 /HPF (0-5)
--- NOTE | 2023-11-27 18:54 | ED.GENADULT ---
HPI - General Adult General Chief complaint: General Medical Stated complaint: Body aches Time Seen by Provider: 11/27/23 18:01 Source: patient Mode of arrival: ambulatory Limitations: no limitations History of Present Illness HPI narrative: Patient is a 33-year-old female who presents emergency department for evaluation of body aches and a nonproductive cough for the past 3 days. She denies associated fevers, chills, headache, chest pain, shortness of breath, nausea vomiting, abdominal pain, symptoms. She does work in a f[employer] setting, denies any recent outbreaks of illness as far as she knows. Denies any underlying history of asthma, is not a cigarette smoker. Denies personal history of DVT/PE/malignancy, or use of OCP. Has a history of hypertension but unfortunately has not been taking her antihypertensives for a few months, was previously on losartan 50 mg, stopped taking as she lost her insurance. Related Data Previous Rx's ?Medication ?Instructions ?Recorded acetaminophen 500 mg tablet 1,000 mg (2 x 500 mg) PO QID PRN 01/02/21 (Tylenol Extra Strength) fever or pain #14 tabs azithromycin 250 mg tablet See Rx Instructions PO .COMPLEX #6 01/02/21 tabs cefuroxime axetil 500 mg tablet 500 mg PO BID #20 tabs 01/03/21 codeine 10 mg-guaifenesin 100 mg/5 10 ml PO Q4-6H PRN cough #237 mL 01/03/21 mL oral liquid prednisone 20 mg tablet 40 mg (2 x 20 mg) PO DAILY #10 tabs 01/03/21 doxycycline hyclate 100 mg tablet 100 mg PO Q12H 14 days #28 tabs 04/19/21 metronidazole 500 mg tablet 500 mg PO BID 14 days #28 tabs 04/19/21 lidocaine 5 % topical patch 1 patch topical DAILY #15 ea 01/03/22 cyclobenzaprine 5 mg tablet 5 mg PO BEDTIME PRN muscle spasm 09/04/22 #4 tabs ketorolac 10 mg tablet 10 mg PO Q6H PRN pain 5 days #20 09/04/22 tabs oxycodone 5 mg tablet 5 mg PO Q4H PRN pain #10 tabs 09/05/22 prednisone 20 mg tablet 60 mg (3 x 20 mg) PO DAILY 5 days 06/23/23 #15 tabs benzonatate 200 mg capsule 200 mg PO TID PRN cough #30 caps 12/30/22 cefuroxime axetil 500 mg tablet 500 mg PO BID 7 days #14 tabs 12/30/22 acetaminophen 500 mg capsule 500 mg PO QID PRN pain #14 caps 03/31/23 cyclobenzaprine 10 mg tablet 10 mg PO TID PRN muscle spasm #7 03/31/23 tabs levofloxacin 500 mg tablet 500 mg PO DAILY #6 tabs 03/31/23 ibuprofen 600 mg tablet 600 mg PO Q6H PRN fever or pain 09/19/23 #30 tabs losartan 50 mg tablet 50 mg PO DAILY #90 tabs 11/27/23 Allergies Allergy/AdvReac Type Severity Reaction Status Date / Time morphine Allergy Mild Rash Verified 11/27/23 13:26 Review of Systems Review of Systems: Yes all other systems are reviewed and are negative [facility] Past Medical History Attestation statement: The following information was validated with the patient. Source: old records reviewed Medical History Hypertension Surgical History No pertinent past surgical history No pertinent past surgical history Social History Social History Alcohol intake: current Alcohol intake frequency: holidays/special occasions only Alcohol type: wine Patient Tobacco Use Status: Never used Tobacco Advance Directives: No Advance Directives Information Provided: No Do you have a plan to hurt others: No Plan Physical Exam ED Vital Signs: Vital Signs - 24 hr 11/27/23 13:22 11/27/23 16:52 11/27/23 17:49 Temperature 96.7 F L 97.4 F 98.3 F Pulse Rate 84 65 66 Respiratory Rate 16 20 16 Blood Pressure 184/87 H 162/93 H 145/83 H Pulse Oximetry 98 99 99 Oxygen Delivery Method Room Air Room Air Room Air BMI result Body Mass Index 42.0 Appearance: Alert.?Oriented to person, place and time. No acute distress.?Normal affect. Eyes: Pupils equal, round and reactive to light.? ENT: Pharynx normal.?? Neck: Normal inspection.? Neck supple.??No cervical adenopathy CVS: Heart sounds normal. Normal heart rate and rhythm.? Pulses normal.?? Respiratory: No respiratory distress.? Lung sounds clear to auscultation bilaterally?? Abdomen: Soft and non-tender. Normoactive bowel sounds. Skin: Skin warm and dry.? Normal skin color.? Extremities: No lower extremity edema.? No calf ttp? Neuro: Moves all extremities spontaneously. Sensation intact bilaterally. CN II-XII intact. No focal neuro deficits. Ambulates with normal steady gait. Medications Administered Discontinued Medications Generic Name Dose Route Start Last Admin Trade Name Rosio PRN Reason Stop Dose Admin Losartan Potassium 50 mg 11/27/23 18:55 11/27/23 19:32 Losartan Potassium 50 Mg Tablet PO 11/27/23 18:56 50 mg ONCE ONE Administration Protocol Medical Decision Making Medical Decision Making [facility] Narrative: Patient is a 33-year-old female with past medical history who presents chin presenting to emergency department for evaluation of body aches and nonproductive cough. COVID-19 and influenza testing are negative. No electrolyte derangement, no MELQUIADES, LFTs within normal range. CBC without leukocytosis, mild microcytic anemia not meeting transfusion criteria, no thrombocytopenia. CXR is without evidence of acute pathology, no evidence of pneumonia. At this time history and physical exam not consistent with ACS/PE/pneumonia. Well-appearing, nontoxic, afebrile, no tachycardia or tachypnea/hypoxia. Speaking clear full sentences, ambulatory with steady gait. Discussed conservative treatment including rest, hydration, Tylenol/ibuprofen as needed for fever and body aches, saline nasal spray, humidifier, [id number] cold medication. Asymptomatic hypertension, supposed to be on chronic antihypertensive medication but as per HPI has not been taking due to lack of insurance. Discussed with patient importance of hypertension management provided with a good Rx card and sent prescription for losartan to pharmacy while she awaits establishing new insurance to establish care with a new PCP. discussed reasons to return back to the emergency department. All questions were answered. Patient discharged home in stable condition. Differential Diagnosis Differential Diagnoses: The differential diagnosis associated with the presentation includes ( See narrative above) Admission/Observation Consideration of admission/observation: Escalation of care including admission/observation considered ( see narrative above) Lab Data [facility] Lab Attestation statement: I reviewed the patient's lab results. ( see narrative above) 11/27/23 14:18 11/27/23 14:18 Labs: Lab Results 11/27/23 11/27/23 Range/Units 14:18 18:14 WBC 10.3 (4.8-10.8) X10*3/uL RBC 4.28 (4.20-5.50) X10*6/uL Hgb 10.3 L (12.0-16.0) g/dl Hct 33.1 L (37.0-47.0) % MCV 77.3 L (80.0-98.0) fL MCH 24.1 L (27.0-33.0) pg MCHC 31.1 (31.0-35.0) g/dl RDW 16.5 H (11.0-16.0) % Plt Count 331 (160-400) X10*3/uL MPV 9.9 (9.4-12.3) fL Immature Gran % (Auto) 0.6 H (0.0-0.4) % Neut % (Auto) 62.0 (45-73) % Lymph % (Auto) 27.8 (20-40) % Ness % (Auto) 7.6 (2-11) % Eos % (Auto) 1.5 (0-4) % Baso % (Auto) 0.5 (0-2) % Lymph # (Auto) 2.9 (1.2-4.9) X10*3/uL Ness # (Auto) 0.8 (0.1-1.2) X10*3/uL Eos # (Auto) 0.2 (0.0-0.4) X10*3/uL Baso # (Auto) 0.1 (0.0-0.2) X10*3/uL Abs Immat Gran (auto) 0.06 H (0.00-0.03) X10*3/uL Absolute Neuts (auto) 6.4 (2.0-8.3) x10*3/uL Absolute Nucleated RBC 0.000 (0.0-0.012) X10*3/uL Nucleated RBC % (auto) 0.0 (0.0-0.2) /100WBC Sodium 140 (135-145) mmol/L Potassium 4.6 (3.3-5.1) mmol/L Chloride 107 (96-108) mmol/L Carbon Dioxide 26 (22-29) mmol/L Anion Gap 12 (12-20) BUN 15 (9-16) mg/dL Creatinine 0.78 (0.5-1.4) mg/dL Estim Creat Clear Calc 107.4 Estimated GFR > 60 Random Glucose 77 (60-115) mg/dL Calcium 9.3 (8.4-10.2) mg/dL Magnesium 2.1 (1.6-2.6) mg/dL Total Bilirubin 0.3 (0.0-1.0) mg/dL AST 18 (5-31) U/L ALT 18 (0-31) U/L Alkaline Phosphatase 98 (39-117) U/L Total Protein 7.7 (6.5-8.0) g/dL Albumin 4.0 (3.5-5.0) g/dL Urine Color Yellow Urine Appearance Clear Urine pH 6.0 (5.0-9.0) Ur Specific [place] 1.025 (1.005-1.025) Urine Protein Negative (Neg-Trace) mg/dL Urine Glucose (UA) Negative (Negative) mg/dL Urine Ketones Trace (Negative) mg/dL Urine Blood Negative (Negative) Urine Nitrite Negative (Negative) Ur Leukocyte Esterase Negative (Negative) Urine RBC 0-2 (0-2) /HPF Urine WBC 0-5 (0-5) /HPF Ur Squamous Epith Cells 6-10 (0-2) /HPF Urine Bacteria 1+ (None Seen) Hyaline Casts 3-5 (0-2) /LPF Urine Test NEGATIVE (NEGATIVE) Influenza Type A (PCR) NEGATIVE (Negative) Influenza Type B (PCR) NEGATIVE (Negative) RSV RNA Qual (PCR) NEGATIVE (Negative) SARS-CoV-2 RNA (RT-PCR) NEGATIVE (Negative) Independent Interpretation I performed an independent interpretation of an: Plain X-Ray (No consolidation or infiltrates) Radiology Impression Discussion of test interpretation with radiology: I have reviewed the radiologist's reading. Radiologist Impression: XR/XR chest 2V IMPRESSION: Unremarkable examination. Independent Historian Clinical information obtained from an independent historian. History obtained from or confirmed by: Spouse External Record Review External record reviewed: Outpatient record Prescription Management I considered prescription management with: Pain Medication ( acetaminophen/ibuprofen) Discharge Plan Discharge Clinical Impression: Upper respiratory infection, Hypertension Patient Disposition: Home, Self-Care Instructions: Heart Healthy Diet (ED), Upper Respiratory Infection (ED), Hypertension (ED) Additional Instructions: Be sure to rest, stay well hydrated drinking plenty of fluids, eat small frequent meals. Tylenol/ibuprofen can be used as needed for fever/pain. Rtqe-znf-turulyy cold medications may be helpful as well for symptoms. Saline nasal spray, humidifier may be helpful for nasal congestion. You may return to the emergency department with any new or worsening symptoms or concerns. Follow-up with your primary care provider as needed. Should remain out of school/ work until symptoms have resolved and have been without a fever for 24 hours without the use of Tylenol or ibuprofen. It is very important that you reapply the health insurance so that you can establish care with your primary care doctor. I have provided a prescription for your losartan today as your blood pressure remains elevated, please use the [employer] card as discussed in hopes that this will reduce the [id number] cost for you. You may return at any point to emergency department any new or worsening symptoms or concerns. Prescriptions: New losartan 50 mg tablet 50 mg PO DAILY Qty: 90 0RF No Action azithromycin 250 mg tablet See Rx Instructions .ROUTE .COMPLEX Qty: 6 0RF Rx Instructions: take 500 mg today (day 1), then 250 mg for 4 days (days 2-5) acetaminophen [Tylenol Extra Strength] 500 mg tablet 1,000 mg PO QID PRN (Reason: fever or pain) Qty: 14 0RF prednisone 20 mg tablet 40 mg PO DAILY Qty: 10 0RF codeine-guaifenesin 10-100 mg/5 mL liquid 10 ml PO Q4-6H PRN (Reason: cough) Qty: 237 0RF cefuroxime axetil 500 mg tablet 500 mg PO BID Qty: 20 0RF metronidazole 500 mg tablet 500 mg PO BID 14 Days Qty: 28 0RF doxycycline hyclate 100 mg tablet 100 mg PO Q12H 14 Days Qty: 28 0RF lidocaine 5 % adhesive patch,medicated 1 patch topical DAILY Qty: 15 0RF Rx Instructions: leave on most painful area for up to 12 hrs ketorolac 10 mg tablet 10 mg PO Q6H PRN (Reason: pain) 5 Days Qty: 20 0RF Rx Instructions: Patient received Toradol in the emergency room. cyclobenzaprine 5 mg tablet 5 mg PO BEDTIME PRN (Reason: muscle spasm) Qty: 4 0RF prednisone 20 mg tablet 60 mg PO DAILY 5 Days Qty: 15 0RF oxycodone 5 mg tablet 5 mg PO Q4H PRN (Reason: pain) Qty: 10 0RF Rx Instructions: Patient may request partial fill; Partial Fill upon patient request. levofloxacin 500 mg tablet 500 mg PO DAILY Qty: 6 0RF cyclobenzaprine 10 mg tablet 10 mg PO TID PRN (Reason: muscle spasm) Qty: 7 0RF acetaminophen 500 mg capsule 500 mg PO QID PRN (Reason: pain) Qty: 14 0RF ibuprofen 600 mg tablet 600 mg PO Q6H PRN (Reason: fever or pain) Qty: 30 0RF benzonatate 200 mg capsule 200 mg PO TID PRN (Reason: cough) Qty: 30 0RF cefuroxime axetil 500 mg tablet 500 mg PO BID 7 Days Qty: 14 0RF Referrals: Physician,None [Primary Care Provider] - Print Language: Liberian
[2023-11-27] MEDS: Losartan Potassium 50 MG TABLET PO (19:32)
[2023-11-27 21:30] VITALS: BP 163/89; PULSE 64; RESP 16; TEMP 37.1; O2SAT 100
[2023-11-27 21:32] VITALS: BP 163/89; PULSE 64; RESP 16; TEMP 37.1; O2SAT 100
== END 2023-11-27 21:33 | disposition home or self-care (01) ==
PROVIDERS: Physician Assistant; Physician Assistant Medical; Emergency Provider Emergency Medicine Emergency Medical Services
DX: J06.9 Acute upper respiratory infection, unspecified (principal); I10 Essential (primary) hypertension; Z03.818 Encounter for observation for suspected exposure to other biological agents ruled out; R05.9 Cough, unspecified; Z79.899 Other long term (current) drug therapy
CPT/HCPCS: 0241U; 71046; 80053; 81001; 81025; 83735; 85025; 99283; 99284

== ENCOUNTER → 2024-01-25 21:14 | Outpatient (BNV) | payer SELFPAY | PROVIDERS: Emergency Provider Emergency Medicine; Visit Provider Internal Medicine Cardiovascular Disease | DX: R07.9 Chest pain, unspecified (principal) | CPT/HCPCS: 93010 ==

== ENCOUNTER 2024-01-25 21:17 | Emergency (ER) | payer SELFPAY ==
--- NOTE | 2024-01-25 | ECG_ITS ---
Test Reason : cp Blood Pressure : / mmHG Vent. Rate : 076 BPM Atrial Rate : 076 BPM P-R Int : 142 ms QRS Dur : 080 ms QT Int : 376 ms P-R-T Axes : 053 014 031 degrees QTc Int : 423 ms Normal sinus rhythm Normal ECG When compared with ECG of 09-OCT-2021 00:39, No significant change was found Referred By: Generic ED Physician Electronically Signed By:Clayton Mckeon
[2024-01-25 21:24] VITALS: BP 155/87; PULSE 74; RESP 18; TEMP 36.6; O2SAT 100; BMI 43.0
[2024-01-25 21:36] LABS: MANUAL DIFF FLAG NO
[2024-01-25 21:43] LABS: Basophils Absolute Auto 0.1 X10*3/uL (0.0-0.2); Basophils Percent Auto 0.5 % (0-2); Eosinophils Absolute Auto 0.2 X10*3/uL (0.0-0.4); Eosinophils Percent Auto 1.8 % (0-4); Hemoglobin 9.4 g/dl (12.0-16.0); Imm Gran Abs Auto 0.09 X10*3/uL (0.00-0.03); Imm Gran Pct Auto 0.8 % (0.0-0.4); Lymphocytes Absolute Auto 3.9 X10*3/uL (1.2-4.9); Mean Corpuscular HGB Conc 31.3 g/dl (31.0-35.0); Mean Corpuscular Hemoglobin 24.3 pg (27.0-33.0); Mean Corpuscular Volume 77.5 fL (80.0-98.0); Mean Platelet Volume 9.8 fL (9.4-12.3); Monocytes Absolute Auto 0.7 X10*3/uL (0.1-1.2); Monocytes Percent Auto 6.6 % (2-11); Neutrophils Absolute Auto 6.1 x10*3/uL (2.0-8.3); Neutrophils Percent Auto 55.3 % (45-73); Platelet Count 372 X10*3/uL (160-400); Red Blood Count 3.87 X10*6/uL (4.20-5.50); Red Cell Distribution Width 17.2 % (11.0-16.0)
[2024-01-25 21:58] LABS: Alanine Aminotransferase 28 U/L (0-31); Albumin Level 3.9 g/dL (3.5-5.0); Alkaline Phosphatase 92 U/L (39-117); Anion Gap 13 (12-20); Aspartate Amino Transferase 23 U/L (5-31); Bilirubin Total 0.1 mg/dL (0.0-1.0); Blood Urea Nitrogen 13 mg/dL (9-16); Calcium 9.6 mg/dL (8.4-10.2); Carbon Dioxide 27 mmol/L (22-29); Chloride 105 mmol/L (96-108); Creatinine Clr Calc Pharmacy 113.1; Estimated Glomerular Filt Rate > 60; Glucose Random 103 mg/dL (60-115); Potassium 4.2 mmol/L (3.3-5.1); Sodium 141 mmol/L (135-145); Total Protein 7.5 g/dL (6.5-8.0)
[2024-01-25 22:12] LABS: Troponin-I High Sensitivity < 2.7 ng/L (<3.5-17.0)
[2024-01-26 00:01] LABS: Appearance Urine Clear; Color Urine Yellow; Glucose Urine UA Negative (Negative); Leukocyte Esterase Urine Negative (Negative); Nitrite Urine Negative (Negative); PH 5.5 (5.0-9.0); UMIC TRIGGER UACC YES; UPreg QC Valid YES; Urine Blood Trace (Negative); Urine Ketones Negative (Negative); Urine Pregnancy NEGATIVE (NEGATIVE); Urine Protein Negative (Neg-Trace)
[2024-01-26 00:07] LABS: Bacteria Urine None Seen (None Seen); Hyaline Casts Urine 0-2 /LPF (0-2); RBC Urine 0-2 /HPF (0-2); Squamous Epithelial Cell Urine 0-2 /HPF (0-2); WBC Urine 0-5 /HPF (0-5)
--- NOTE | 2024-01-26 03:42 | PC.NURSE ---
Pt no answer when called for reassessment.
== END 2024-01-26 03:42 | disposition left against medical advice (07) ==
PROVIDERS: Emergency Provider Emergency Medicine
DX: R07.9 Chest pain, unspecified (principal); Z53.21 Procedure and treatment not carried out due to patient leaving prior to being seen by health care provider
CPT/HCPCS: 36415; 80053; 81001; 81025; 84484; 85025; 93005; 99281; 99283

== ENCOUNTER 2024-04-13 15:56 | Emergency (ER) | payer SELFPAY ==
--- NOTE | ~2024-04-13 | XR_ITS ---
CLINICAL HISTORY: SOB 2 views of the chest. Comparison 11/27/2023. Findings: Heart size is normal. There is no consolidation. No pleural effusion is seen. Impression: No consolidation. This document has been electronically signed by: Jayme Duron MD on 04/13/2024 17:49:47
--- NOTE | ~2024-04-13 | US_ITS ---
CLINICAL HISTORY: right calf pain Right lower extremity venous ultrasound. Findings: The deep venous system is normally compressible. There is color and spectral Doppler flow. Impression: No DVT is identified. This document has been electronically signed by: Jayme Duron MD on 04/13/2024 18:01:18
--- NOTE | 2024-04-13 16:01 | ECG_ITS ---
Test Reason : CHEST PAIN Blood Pressure : */* mmHG Vent. Rate : 71 BPM Atrial Rate : 71 BPM P-R Int : 146 ms QRS Dur : 80 ms QT Int : 390 ms P-R-T Axes : 29 11 19 degrees QTcB Int : 423 ms Normal sinus rhythm Normal ECG When compared with ECG of 25-Jan-2024 21:14, No significant change was found Referred By: Anais Ramsey Electronically Signed By: UZMA COLLIER
[2024-04-13 16:41] VITALS: BP 146/95; PULSE 65; RESP 16; TEMP 36.3; O2SAT 100; BMI 41.8
--- NOTE | 2024-04-13 16:50 | ED_ITS ---
HPI - Chest Pain General Chief Complaint: Chest Pain Stated Complaint: Chest Pain x 3 Days R Leg Pain Time Seen by Provider: 04/13/24 19:55 Source: patient Mode of arrival: ambulatory Limitations: no limitations History of Present Illness HPI narrative: This is a 34-year-old woman with a past medical history of hypertension who presents for evaluation of right calf pain, chest pain and dyspnea. Patient states that over the last 3 days she has been experiencing intermittent taking sensation in her right calf. She states that this is associated with an electric type pain in her chest. She states that the when this occurs she feels short of breath. She otherwise states no pleuritic chest pain. She states no exertional chest pain or dyspnea. She states no cough, sputum production or hemoptysis. She states no surgery in the last 1 month. She states no use of control or hormones. She states no previous DVT/PE. She states no traumatic injury. She states no associated abdominal pain or back pain. She states no GI or symptoms. Related Data Previous Rx's ?Medication ?Instructions ?Recorded acetaminophen 500 mg tablet 1,000 mg (2 x 500 mg) PO QID PRN 01/02/21 (Tylenol Extra Strength) fever or pain #14 tabs azithromycin 250 mg tablet See Rx Instructions PO .COMPLEX #6 01/02/21 tabs cefuroxime axetil 500 mg tablet 500 mg PO BID #20 tabs 01/03/21 codeine 10 mg-guaifenesin 100 mg/5 10 ml PO Q4-6H PRN cough #237 mL 01/03/21 mL oral liquid prednisone 20 mg tablet 40 mg (2 x 20 mg) PO DAILY #10 tabs 01/03/21 doxycycline hyclate 100 mg tablet 100 mg PO Q12H 14 days #28 tabs 04/19/21 metronidazole 500 mg tablet 500 mg PO BID 14 days #28 tabs 04/19/21 lidocaine 5 % topical patch 1 patch topical DAILY #15 ea 01/03/22 cyclobenzaprine 5 mg tablet 5 mg PO BEDTIME PRN muscle spasm 09/04/22 #4 tabs ketorolac 10 mg tablet 10 mg PO Q6H PRN pain 5 days #20 09/04/22 tabs oxycodone 5 mg tablet 5 mg PO Q4H PRN pain #10 tabs 09/05/22 prednisone 20 mg tablet 60 mg (3 x 20 mg) PO DAILY 5 days 09/05/22 #15 tabs benzonatate 200 mg capsule 200 mg PO TID PRN cough #30 caps 12/30/22 cefuroxime axetil 500 mg tablet 500 mg PO BID 7 days #14 tabs 12/30/22 acetaminophen 500 mg capsule 500 mg PO QID PRN pain #14 caps 03/31/23 cyclobenzaprine 10 mg tablet 10 mg PO TID PRN muscle spasm #7 03/31/23 tabs levofloxacin 500 mg tablet 500 mg PO DAILY #6 tabs 03/31/23 ibuprofen 600 mg tablet 600 mg PO Q6H PRN fever or pain 09/19/23 #30 tabs losartan 50 mg tablet 50 mg PO DAILY #90 tabs 11/27/23 Allergies Allergy/AdvReac Type Severity Reaction Status Date / Time morphine Allergy Mild Rash Verified 04/13/24 16:44 Review of Systems 2 Review of Systems: ROS as per HPI [facility] Past Medical History Medical History Hypertension Surgical History No pertinent past surgical history No pertinent past surgical history Social History Social History Unable to assess alcohol history related to: Unknown Alcohol intake: current Alcohol intake frequency: holidays/special occasions only Alcohol type: wine Patient Tobacco Use Status: Never used Tobacco Advance Directives: No Advance Directives Information Provided: No Physical Exam 2 Vital Signs: Vital Signs: Last Vital Signs Temp 97.3 F 04/13/24 16:41 Pulse 65 04/13/24 16:41 Resp 16 04/13/24 16:41 BP 146/95 H 04/13/24 16:41 Pulse Ox 100 04/13/24 16:41 O2 Del Method Room Air 04/13/24 16:41 BMI result Body Mass Index 41.8 Gen: NAD, AOx3 HEENT: NCAT, EOMI, normal conjunctiva CV: RRR, no murmurs appreciated, 2+ bilateral DP/PT pulses Pulm: CTAB, no increased work of breathing GI: Soft, NTND, no rebound, guarding or rigidity Neuro: Grossly non focal MSK: No asymmetrical calf edema/erythema/TTP Course Course Course Narrative: This is a Rapid Medical Examination (RME) performed by Solomon Ramsey PA-C in triage. Full HPI, ROS, assessment and treatment plan per primary provider in the Main ED. 34 yo female here for eval of tugging sensation to right calf/ knee area. assoc electric chest pain and sob x3 days. no recent travel or long car rides. no OCP use. Plan: labs, ekg, cxr, venous duplex Medical Decision Making Medical Decision Making [facility] Narrative: Differential diagnosis includes, but is not limited to anxiety, strain, sprain, electrolyte abnormality. Patient is afebrile and hemodynamically stable on room air. Exam is benign and reassuring. I reviewed the patient's labs, right lower extremity duplex ultrasound and chest x-ray as below. PERC 0. On re-examination, patient is well-appearing and in no acute distress. ?There is no indication for further emergent evaluation in this otherwise well-appearing patient as above. ?Patient is provided written and verbal instructions, educational materials, recommendations for outpatient follow-up, strict return precautions and teach back is performed. ?Patient states understanding and agreement with plan of care. ?Patient is discharged home in stable and improved condition. Admission/Observation Consideration of admission/observation: Escalation of care including admission/observation considered Lab Data [facility] Lab Attestation statement: I reviewed the patient's lab results. 04/13/24 16:59 04/13/24 16:59 Labs: Lab Results 04/13/24 Range/Units 16:59 WBC 8.1 (4.8-10.8) X10*3/uL RBC 4.13 L (4.20-5.50) X10*6/uL Hgb 9.5 L (12.0-16.0) g/dl Hct 31.6 L (37.0-47.0) % MCV 76.5 L (80.0-98.0) fL MCH 23.0 L (27.0-33.0) pg MCHC 30.1 L (31.0-35.0) g/dl RDW 16.5 H (11.0-16.0) % Plt Count 314 (160-400) X10*3/uL MPV 9.8 (9.4-12.3) fL Immature Gran % (Auto) 0.4 (0.0-0.4) % Neut % (Auto) 59.0 (45-73) % Lymph % (Auto) 28.4 (20-40) % [place] % (Auto) 9.7 (2-11) % Eos % (Auto) 2.1 (0-4) % Baso % (Auto) 0.4 (0-2) % Lymph # (Auto) 2.3 (1.2-4.9) X10*3/uL [place] # (Auto) 0.8 (0.1-1.2) X10*3/uL Eos # (Auto) 0.2 (0.0-0.4) X10*3/uL Baso # (Auto) 0.0 (0.0-0.2) X10*3/uL Abs Immat Gran (auto) 0.03 (0.00-0.03) X10*3/uL Absolute Neuts (auto) 4.8 (2.0-8.3) x10*3/uL Absolute Nucleated RBC 0.000 (0.0-0.012) X10*3/uL Nucleated RBC % (auto) 0.0 (0.0-0.2) /100WBC PT 13.3 H (10.9-12.4) SEC INR 1.1 (0.9-1.1) Sodium 138 (135-145) mmol/L Potassium 4.2 (3.3-5.1) mmol/L Chloride 107 (96-108) mmol/L Carbon Dioxide 23 (22-29) mmol/L Anion Gap 12 (12-20) BUN 11 (9-16) mg/dL Creatinine 0.69 (0.5-1.4) mg/dL Estim Creat Clear Calc 119.9 Estimated GFR > 60 Random Glucose 78 (60-115) mg/dL Calcium 9.0 D (8.4-10.2) mg/dL Magnesium 2.1 (1.6-2.6) mg/dL Total Bilirubin 0.2 (0.0-1.0) mg/dL AST 31 (5-31) U/L ALT 32 H (0-31) U/L Alkaline Phosphatase 81 (39-117) U/L Troponin I High Sens < 2.7 (<3.5-17.0) ng/L Total Protein 8.0 (6.5-8.0) g/dL Albumin 4.1 (3.5-5.0) g/dL Independent Interpretation I performed an independent interpretation of an: Plain X-Ray Interpretation: I independently reviewed and interpreted the patient's chest x-ray, which demonstrates no pleural effusion, focal consolidation or pneumothorax Radiology Impression Discussion of test interpretation with radiology: I have reviewed the radiologist's reading. Radiologist Impression: Impression: No DVT is identified. This document has been electronically signed by: Jayme Duron MD on 04/13/2024 18:01:18 Dictated By: Manoj Becerra MD Signed By: <Electronically signed by Manoj Becerra MD in OV> 04/13/24 1802 Impression: No consolidation. This document has been electronically signed by: Jayme Duron MD on 04/13/2024 17:49:47 Dictated By: Manoj Becerra MD Signed By: <Electronically signed by Manoj Becerra MD in OV> 04/13/24 1750 Discharge Plan Discharge Clinical Impression: Chest pain Patient Disposition: Home, Self-Care Instructions: Chest Pain (ED), Leg Pain (ED) Additional Instructions: You were seen and evaluated in the emergency room. Your vital signs were reassuring. Your blood work and chest x-ray were reassuring. We incidentally noted that you do have evidence of anemia (your hemoglobin was 9.5). You may consider taking 600 mg ibuprofen every 6 hours with food and water as needed for any pain you experience. You can additionally take 1000 mg Tylenol every 8 hours. Please follow-up with your primary care doctor in the next 5-7 days to discuss your recent emergency room visit. Please return to the emergency room if you develop any worsening symptoms. Prescriptions: No Action azithromycin 250 mg tablet See Rx Instructions .ROUTE .COMPLEX Qty: 6 0RF Rx Instructions: take 500 mg today (day 1), then 250 mg for 4 days (days 2-5) acetaminophen [Tylenol Extra Strength] 500 mg tablet 1,000 mg PO QID PRN (Reason: fever or pain) Qty: 14 0RF prednisone 20 mg tablet 40 mg PO DAILY Qty: 10 0RF codeine-guaifenesin 10-100 mg/5 mL liquid 10 ml PO Q4-6H PRN (Reason: cough) Qty: 237 0RF cefuroxime axetil 500 mg tablet 500 mg PO BID Qty: 20 0RF metronidazole 500 mg tablet 500 mg PO BID 14 Days Qty: 28 0RF doxycycline hyclate 100 mg tablet 100 mg PO Q12H 14 Days Qty: 28 0RF lidocaine 5 % adhesive patch,medicated 1 patch topical DAILY Qty: 15 0RF Rx Instructions: leave on most painful area for up to 12 hrs ketorolac 10 mg tablet 10 mg PO Q6H PRN (Reason: pain) 5 Days Qty: 20 0RF Rx Instructions: Patient received Toradol in the emergency room. cyclobenzaprine 5 mg tablet 5 mg PO BEDTIME PRN (Reason: muscle spasm) Qty: 4 0RF prednisone 20 mg tablet 60 mg PO DAILY 5 Days Qty: 15 0RF oxycodone 5 mg tablet 5 mg PO Q4H PRN (Reason: pain) Qty: 10 0RF Rx Instructions: Patient may request partial fill; Partial Fill upon patient request. levofloxacin 500 mg tablet 500 mg PO DAILY Qty: 6 0RF cyclobenzaprine 10 mg tablet 10 mg PO TID PRN (Reason: muscle spasm) Qty: 7 0RF acetaminophen 500 mg capsule 500 mg PO QID PRN (Reason: pain) Qty: 14 0RF ibuprofen 600 mg tablet 600 mg PO Q6H PRN (Reason: fever or pain) Qty: 30 0RF losartan 50 mg tablet 50 mg PO DAILY Qty: 90 0RF benzonatate 200 mg capsule 200 mg PO TID PRN (Reason: cough) Qty: 30 0RF cefuroxime axetil 500 mg tablet 500 mg PO BID 7 Days Qty: 14 0RF Print Language: [place]
[2024-04-13 17:03] LABS: MANUAL DIFF FLAG NO
[2024-04-13 17:16] LABS: Basophils Percent Auto 0.4 % (0-2); Eosinophils Absolute Auto 0.2 X10*3/uL (0.0-0.4); Eosinophils Percent Auto 2.1 % (0-4); Hematocrit 31.6 % (37.0-47.0); Hemoglobin 9.5 g/dl (12.0-16.0); Imm Gran Abs Auto 0.03 X10*3/uL (0.00-0.03); Imm Gran Pct Auto 0.4 % (0.0-0.4); Lymphocytes Absolute Auto 2.3 X10*3/uL (1.2-4.9); Lymphocytes Percent Auto 28.4 % (20-40); Mean Corpuscular HGB Conc 30.1 g/dl (31.0-35.0); Mean Corpuscular Volume 76.5 fL (80.0-98.0); Mean Platelet Volume 9.8 fL (9.4-12.3); Monocytes Absolute Auto 0.8 X10*3/uL (0.1-1.2); Monocytes Percent Auto 9.7 % (2-11); Neutrophils Absolute Auto 4.8 x10*3/uL (2.0-8.3); Platelet Count 314 X10*3/uL (160-400); Red Blood Count 4.13 X10*6/uL (4.20-5.50); Red Cell Distribution Width 16.5 % (11.0-16.0); White Blood Count 8.1 X10*3/uL (4.8-10.8)
[2024-04-13 17:17] LABS: Alanine Aminotransferase 32 U/L (0-31); Albumin Level 4.1 g/dL (3.5-5.0); Alkaline Phosphatase 81 U/L (39-117); Anion Gap 12 (12-20); Aspartate Amino Transferase 31 U/L (5-31); Bilirubin Total 0.2 mg/dL (0.0-1.0); Blood Urea Nitrogen 11 mg/dL (9-16); Carbon Dioxide 23 mmol/L (22-29); Chloride 107 mmol/L (96-108); Creatinine Clr Calc Pharmacy 119.9; Estimated Glomerular Filt Rate > 60; Glucose Random 78 mg/dL (60-115); Magnesium 2.1 mg/dL (1.6-2.6); Potassium 4.2 mmol/L (3.3-5.1); Sodium 138 mmol/L (135-145)
[2024-04-13 17:25] LABS: Troponin-I High Sensitivity < 2.7 ng/L (<3.5-17.0)
[2024-04-13 17:38] LABS: INTERNATIONAL NORM RATIO 1.1 (0.9-1.1); Prothrombin Time 13.3 SEC (10.9-12.4)
--- OUTSIDE RECORDS SUMMARY | 2024-04-13 20:40 | XMS_ITS | Clinical Summary ---
Author Organization [facility] Address [address] [place] [address] Care Team Providers Care Tools And Parts Attendant Name Role Phone Pcp, Donovan Velazco MD Primary Care Provider [phone] Allergies Active Allergy Reactions Criticality Noted Date Comments Morphine 09/02/2018 Medications Medication Sig Dispensed Refills Start Date End Date Status ferrous sulfate 325 (65 FE) MG tablet Take 325 mg by mouth every morning with breakfast. 0 Active Social History Tobacco Use Types Packs/Day Years Used Date Smoking Tobacco: Never Smokeless Tobacco: Never Alcohol Use Standard Drinks/Week Comments Yes 0 (1 standard drink = 0.6 oz pur e alcohol) social Sex and Gender Information Value Date Recorded Sex Assigned at Female 09/02/2018 1:27 AM EDT Gender Identity Not on file Sexual Orientation Not on file Last Filed Vital Signs Vital Sign Reading Time Taken Comments Blood Pressure 129/79 08/05/2019 12:40 PM EDT Pulse 64 08/05/2019 12:40 PM EDT Temperature 36.7 ??C (98 ??F) 08/05/2019 12:40 PM EDT Respiratory Rate 18 08/05/2019 12:40 PM EDT Oxygen Saturation 99% 08/05/2019 12:40 PM EDT Inhaled Oxygen Concentration - - Weight 79.4 kg (175 lb) 08/05/2019 9:04 AM EDT Height 152.4 cm (5') 08/05/2019 9:04 AM EDT Body Mass Index 34.18 08/05/2019 9:04 AM EDT Plan of Treatment Health Maintenance Due Date Last Done Comments Hepatitis B Vaccines (1 of 3 - 3-dose series) 1990 Hepatitis C Screening 1990 COVID-19 Vaccine (#1) 1990 Depression Screening 2002 BMI Counseling 2008 Preventative Health Evaluation 2008 DTap / Tdap / Td (1 - Tdap) 2009 Cervical Cancer Screening (P ap Smear) 2011 Influenza Vaccine (#1) 2023 Pneumococcal Vaccine Aged Out No long er eligible based on patient's age to complete this topic RSV Ped < 20 months Aged Out No longe r eligible based on patient's age to complete this topic Care Teams Tools And Parts Attendant Relationship Specialty Start Date End Date Pcp, Donovan Velazco MD [address] [place] [address] PCP - General Top Cleaner 03/11/19
[2024-04-13 21:10] VITALS: BP 136/74; PULSE 72; RESP 16; TEMP 36.3; O2SAT 100
== END 2024-04-13 21:11 | disposition home or self-care (01) ==
PROVIDERS: Physician Assistant Medical; Emergency Provider Emergency Medicine
DX: R07.89 Other chest pain (principal); R60.0 Localized edema; M79.604 Pain in right leg; Z79.899 Other long term (current) drug therapy
CPT/HCPCS: 36415; 71046; 80053; 83735; 84484; 85025; 85610; 93005; 93971; 99283; 99284

== ENCOUNTER → 2024-04-13 16:01 | Outpatient (BNV) | payer SELFPAY | PROVIDERS: Emergency Provider Emergency Medicine; Visit Provider Internal Medicine | DX: R07.9 Chest pain, unspecified (principal) | CPT/HCPCS: 93010 ==

== ENCOUNTER → 2024-04-13 16:51 | Outpatient (BNV) | payer SELFPAY | PROVIDERS: Visit Provider Radiology Diagnostic Radiology | DX: R07.9 Chest pain, unspecified (principal); M79.604 Pain in right leg | CPT/HCPCS: 71046; 93971 ==

== ENCOUNTER 2024-05-07 11:45 | Emergency (ER) | payer MEDICAID, SELFPAY ==
--- NOTE | ~2024-05-07 | XR_ITS ---
CLINICAL HISTORY: chest pain Chest Radiographs, 2 views Comparison: CR - XR CHEST 2V - 04/13/24 17:22 EST CR/SR - XR CHEST 2V - 11/27/23 18:34 EDT Findings: No cardiomegaly. Normal mediastinal contours. No pneumothorax. No opacity. No pleural effusion. Normal upper abdomen. No acute fracture. Impression: No acute findings. This document has been electronically signed by: Olivia Hernandez MD on 05/07/2024 12:50:41
[2024-05-07 11:55] VITALS: BP 119/81; BP 121/86; PULSE 80; PULSE 91; RESP 18; TEMP 36.7; O2SAT 99; BMI 41.0
--- NOTE | 2024-05-07 11:55 | ED.GENADULT ---
HPI - General Adult General Chief complaint: Upper Respiratory Symptoms Stated complaint: COUGH W/CP X3D,FLU LIKE SX PER EMS Time Seen by Provider: 05/07/24 14:52 Source: patient Mode of arrival: ambulatory Limitations: no limitations History of Present Illness ED Provider: Marci Yuen NP HPI narrative: Patient is a 34-year-old female who presents emergency department via EMS for evaluation. 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 Denies fevers, chills, headache, dizziness, neck pain, neck stiffness, shortness of breath, difficulty breathing, nausea, vomiting, abdominal pain, numbness or tingling of the extremities, genitourinary symptoms. Related Data Previous Rx's ?Medication ?Instructions ?Recorded acetaminophen 500 mg tablet 1,000 mg (2 x 500 mg) PO QID PRN 01/02/21 (Tylenol Extra Strength) fever or pain #14 tabs azithromycin 250 mg tablet See Rx Instructions PO .COMPLEX #6 01/02/21 tabs cefuroxime axetil 500 mg tablet 500 mg PO BID #20 tabs 01/03/21 codeine 10 mg-guaifenesin 100 mg/5 10 ml PO Q4-6H PRN cough #237 mL 01/03/21 mL oral liquid prednisone 20 mg tablet 40 mg (2 x 20 mg) PO DAILY #10 tabs 01/03/21 doxycycline hyclate 100 mg tablet 100 mg PO Q12H 14 days #28 tabs 04/19/21 metronidazole 500 mg tablet 500 mg PO BID 14 days #28 tabs 04/19/21 lidocaine 5 % topical patch 1 patch topical DAILY #15 ea 01/03/22 cyclobenzaprine 5 mg tablet 5 mg PO BEDTIME PRN muscle spasm 09/04/22 #4 tabs ketorolac 10 mg tablet 10 mg PO Q6H PRN pain 5 days #20 09/04/22 tabs oxycodone 5 mg tablet 5 mg PO Q4H PRN pain #10 tabs 09/05/22 prednisone 20 mg tablet 60 mg (3 x 20 mg) PO DAILY 5 days 09/05/22 #15 tabs benzonatate 200 mg capsule 200 mg PO TID PRN cough #30 caps 12/30/22 cefuroxime axetil 500 mg tablet 500 mg PO BID 7 days #14 tabs 12/30/22 acetaminophen 500 mg capsule 500 mg PO QID PRN pain #14 caps 03/31/23 cyclobenzaprine 10 mg tablet 10 mg PO TID PRN muscle spasm #7 03/31/23 tabs levofloxacin 500 mg tablet 500 mg PO DAILY #6 tabs 03/31/23 ibuprofen 600 mg tablet 600 mg PO Q6H PRN fever or pain 09/19/23 #30 tabs losartan 50 mg tablet 50 mg PO DAILY #90 tabs 11/27/23 azithromycin 250 mg tablet See Rx Instructions PO .COMPLEX #6 05/07/24 tabs benzonatate 100 mg capsule 100 mg PO TID PRN cough #14 caps 05/07/24 Allergies Allergy/AdvReac Type Severity Reaction Status Date / Time morphine Allergy Mild Rash Verified 05/07/24 11:59 Review of Systems Review of Systems: Yes all other systems are reviewed and are negative [facility] Past Medical History Attestation statement: The following information was validated with the patient. Source: old records reviewed Medical History Hypertension Surgical History No pertinent past surgical history No pertinent past surgical history Social History Social History Unable to assess alcohol history related to: Unknown Alcohol intake: current Alcohol intake frequency: holidays/special occasions only Alcohol type: wine Patient Tobacco Use Status: Never used Tobacco Advance Directives: No Advance Directives Information Provided: No Do you have a plan to hurt others: No Plan Physical Exam ED Vital Signs: Vital Signs - 24 hr 05/07/24 11:55 Temperature 98.1 F Pulse Rate 91 Respiratory Rate 18 Blood Pressure 119/81 Pulse Oximetry 99 Oxygen Delivery Method Room Air BMI result Body Mass Index 41.0 Appearance: Alert.?Oriented to person, place and time. No acute distress.?Normal affect. Eyes: Pupils equal, round and reactive to light.? ENT: TM normal bilaterally. Pharynx normal.?? Neck: Normal inspection.? Neck supple.??No cervical adenopathy CVS: Heart sounds normal. Normal heart rate and rhythm.? Pulses normal.?? Respiratory: No respiratory distress.? Lung sounds clear to auscultation bilaterally?? Abdomen: Soft and non-tender. Normoactive bowel sounds. Skin: Skin warm and dry.? Normal skin color.? ? Extremities: No lower extremity edema.? Neuro: Moves all extremities spontaneously. Sensation intact bilaterally. No motor deficits. Ambulates with normal steady gait. Course Course Course Narrative: RME performed by Daja Bedoya PA-C. Patient is a 34 year old assigned female at presenting to the emergency department with a cough, chest pain, and feeling generally unwell. Detailed physical exam and review of systems are deferred to the auditing coder. EKG, labs, imaging, and swabs ordered. Patient placed back in the waiting room pending room availability and results. Medical Decision Making Medical Decision Making [facility] Narrative: Patient is a 34 old female with history of hypertension, presenting for evaluation of viral type symptoms as per HPI. COVID-19/influenza/RSV testing is negative. On review of serum labs she has no leukocytosis, has a microcytic anemia that does not meet transfusion criteria, no thrombocytopenia. No electrolyte derangement. No MELQUIADES. LFTs within normal range. High sensitive troponin below detectable limits EKG revealing a normal sinus rhythm with ventricular rate of 78, QTC 437, T-wave inversion lead III as seen on priors. CXR is without consolidation or infiltrate to suggest pneumonia. Posterior oropharynx is normal, not consistent RPA/QUALITY COORDINATOR, center score without concern for acute streptococcal infection. Well-appearing, nontoxic, afebrile, no tachycardia or tachypnea/hypoxia. Speaking clear full sentences, ambulatory with steady gait. Discussed conservative treatment for bronchitis including rest, hydration, Tylenol/ibuprofen as needed for fever and body aches, saline nasal spray, humidifier, [id number] cold medication. Advised to follow-up with primary care provider as needed, discussed reasons to return back to the emergency department. All questions were answered. Patient discharged home in stable condition. Differential Diagnosis Differential Diagnoses: The differential diagnosis associated with the presentation includes ( See narrative above) Admission/Observation Consideration of admission/observation: Escalation of care including admission/observation considered ( see narrative above) Lab Data [facility] Lab Attestation statement: I reviewed the patient's lab results. ( see narrative above) 05/07/24 12:21 05/07/24 12:21 Labs: Lab Results 05/07/24 Range/Units 12:21 WBC 6.0 (4.8-10.8) X10*3/uL RBC 4.47 (4.20-5.50) X10*6/uL Hgb 10.2 L (12.0-16.0) g/dl Hct 33.3 L (37.0-47.0) % MCV 74.5 L (80.0-98.0) fL MCH 22.8 L (27.0-33.0) pg MCHC 30.6 L (31.0-35.0) g/dl RDW 17.0 H (11.0-16.0) % Plt Count 305 (160-400) X10*3/uL MPV 9.9 (9.4-12.3) fL Immature Gran % (Auto) 0.3 (0.0-0.4) % Neut % (Auto) 58.2 (45-73) % Lymph % (Auto) 26.5 (20-40) % Barnwell % (Auto) 11.2 H (2-11) % Eos % (Auto) 3.3 (0-4) % Baso % (Auto) 0.5 (0-2) % Lymph # (Auto) 1.6 (1.2-4.9) X10*3/uL Barnwell # (Auto) 0.7 (0.1-1.2) X10*3/uL Eos # (Auto) 0.2 (0.0-0.4) X10*3/uL Baso # (Auto) 0.0 (0.0-0.2) X10*3/uL Abs Immat Gran (auto) 0.02 (0.00-0.03) X10*3/uL Absolute Neuts (auto) 3.5 (2.0-8.3) x10*3/uL Absolute Nucleated RBC 0.000 (0.0-0.012) X10*3/uL Nucleated RBC % (auto) 0.0 (0.0-0.2) /100WBC Sodium 139 (135-145) mmol/L Potassium 3.9 (3.3-5.1) mmol/L Chloride 108 (96-108) mmol/L Carbon Dioxide 22 (22-29) mmol/L Anion Gap 13 (12-20) BUN 14 (9-16) mg/dL Creatinine 0.75 (0.5-1.4) mg/dL Estim Creat Clear Calc 109.1 Estimated GFR > 60 Random Glucose 79 (60-115) mg/dL Calcium 9.3 (8.4-10.2) mg/dL Magnesium 2.1 (1.6-2.6) mg/dL Total Bilirubin 0.1 (0.0-1.0) mg/dL AST 31 (5-31) U/L ALT 28 (0-31) U/L Alkaline Phosphatase 91 (39-117) U/L Troponin I High Sens < 2.7 (<3.5-17.0) ng/L Total Protein 8.3 H (6.5-8.0) g/dL Albumin 4.2 (3.5-5.0) g/dL Influenza Type A (PCR) NEGATIVE (Negative) Influenza Type B (PCR) NEGATIVE (Negative) RSV RNA Qual (PCR) NEGATIVE (Negative) SARS-CoV-2 RNA (RT-PCR) NEGATIVE (Negative) Independent Interpretation I performed an independent interpretation of an: EKG (See narrative above) and Plain X-Ray (See narrative above) Radiology Impression Discussion of test interpretation with radiology: I have reviewed the radiologist's reading. Radiologist Impression: Chest Radiographs, 2 views Comparison: CR - XR CHEST 2V - 04/13/24 17:22 EST CR/SR - XR CHEST 2V - 11/27/23 18:34 EDT Findings: No cardiomegaly. Normal mediastinal contours. No pneumothorax. No opacity. No pleural effusion. Normal upper abdomen. No acute fracture. Impression: No acute findings. Independent Historian Clinical information obtained from an independent historian. History obtained from or confirmed by: EMS External Record Review External record reviewed: Outpatient record Prescription Management I considered prescription management with: Pain Medication ( acetaminophen/ibuprofen) Discharge Plan Discharge Clinical Impression: Bronchitis Patient Disposition: Home, Self-Care Instructions: Acute Bronchitis (ED) Additional Instructions: Prescription for azithromycin and Tessalon Perles has been sent to your pharmacy, please take these as prescribed Be sure to rest, stay well hydrated drinking plenty of fluids, eat small frequent meals. Tylenol/ibuprofen can be used as needed for fever/pain. Yope-jru-lmbacue cold medications may be helpful as well for symptoms. Saline nasal spray, humidifier may be helpful for nasal congestion. You may return to the emergency department with any new or worsening symptoms or concerns. Follow-up with your primary care provider as needed. Should remain out of school/ work until symptoms have resolved and have been without a fever for 24 hours without the use of Tylenol or ibuprofen. Prescriptions: New azithromycin 250 mg tablet See Rx Instructions .ROUTE .COMPLEX Qty: 6 0RF Rx Instructions: For 250 mg dose pack: take 500 mg today (day 1), then 250 mg for 4 days (days 2-5) benzonatate 100 mg capsule 100 mg PO TID PRN (Reason: cough) Qty: 14 0RF No Action azithromycin 250 mg tablet See Rx Instructions .ROUTE .COMPLEX Qty: 6 0RF Rx Instructions: take 500 mg today (day 1), then 250 mg for 4 days (days 2-5) acetaminophen [Tylenol Extra Strength] 500 mg tablet 1,000 mg PO QID PRN (Reason: fever or pain) Qty: 14 0RF prednisone 20 mg tablet 40 mg PO DAILY Qty: 10 0RF codeine-guaifenesin 10-100 mg/5 mL liquid 10 ml PO Q4-6H PRN (Reason: cough) Qty: 237 0RF cefuroxime axetil 500 mg tablet 500 mg PO BID Qty: 20 0RF metronidazole 500 mg tablet 500 mg PO BID 14 Days Qty: 28 0RF doxycycline hyclate 100 mg tablet 100 mg PO Q12H 14 Days Qty: 28 0RF lidocaine 5 % adhesive patch,medicated 1 patch topical DAILY Qty: 15 0RF Rx Instructions: leave on most painful area for up to 12 hrs ketorolac 10 mg tablet 10 mg PO Q6H PRN (Reason: pain) 5 Days Qty: 20 0RF Rx Instructions: Patient received Toradol in the emergency room. cyclobenzaprine 5 mg tablet 5 mg PO BEDTIME PRN (Reason: muscle spasm) Qty: 4 0RF prednisone 20 mg tablet 60 mg PO DAILY 5 Days Qty: 15 0RF oxycodone 5 mg tablet 5 mg PO Q4H PRN (Reason: pain) Qty: 10 0RF Rx Instructions: Patient may request partial fill; Partial Fill upon patient request. levofloxacin 500 mg tablet 500 mg PO DAILY Qty: 6 0RF cyclobenzaprine 10 mg tablet 10 mg PO TID PRN (Reason: muscle spasm) Qty: 7 0RF acetaminophen 500 mg capsule 500 mg PO QID PRN (Reason: pain) Qty: 14 0RF ibuprofen 600 mg tablet 600 mg PO Q6H PRN (Reason: fever or pain) Qty: 30 0RF losartan 50 mg tablet 50 mg PO DAILY Qty: 90 0RF benzonatate 200 mg capsule 200 mg PO TID PRN (Reason: cough) Qty: 30 0RF cefuroxime axetil 500 mg tablet 500 mg PO BID 7 Days Qty: 14 0RF Referrals: ED Physician,Generic [Physician] - Physician,Unknown J [Primary Care Provider] - Print Language: Portuguese
--- NOTE | 2024-05-07 11:58 | ECG_ITS ---
Test Reason : CP Blood Pressure : */* mmHG Vent. Rate : 78 BPM Atrial Rate : 78 BPM P-R Int : 138 ms QRS Dur : 80 ms QT Int : 384 ms P-R-T Axes : 36 5 13 degrees QTcB Int : 437 ms Normal sinus rhythm Minimal voltage criteria for LVH, may be normal variant ( R in aVL ) Borderline ECG When compared with ECG of 13-Apr-2024 16:04, No significant change was found Referred By: Daja Bedoya Electronically Signed By: UZMA COLLIER
[2024-05-07 12:30] LABS: Basophils Percent Auto 0.5 % (0-2); Eosinophils Absolute Auto 0.2 X10*3/uL (0.0-0.4); Eosinophils Percent Auto 3.3 % (0-4); Hematocrit 33.3 % (37.0-47.0); Hemoglobin 10.2 g/dl (12.0-16.0); Imm Gran Abs Auto 0.02 X10*3/uL (0.00-0.03); Imm Gran Pct Auto 0.3 % (0.0-0.4); Lymphocytes Absolute Auto 1.6 X10*3/uL (1.2-4.9); Lymphocytes Percent Auto 26.5 % (20-40); MANUAL DIFF FLAG NO; Mean Corpuscular HGB Conc 30.6 g/dl (31.0-35.0); Mean Corpuscular Hemoglobin 22.8 pg (27.0-33.0); Mean Corpuscular Volume 74.5 fL (80.0-98.0); Mean Platelet Volume 9.9 fL (9.4-12.3); Monocytes Absolute Auto 0.7 X10*3/uL (0.1-1.2); Monocytes Percent Auto 11.2 % (2-11); Neutrophils Absolute Auto 3.5 x10*3/uL (2.0-8.3); Neutrophils Percent Auto 58.2 % (45-73); Platelet Count 305 X10*3/uL (160-400); Red Blood Count 4.47 X10*6/uL (4.20-5.50)
[2024-05-07 12:43] LABS: Alanine Aminotransferase 28 U/L (0-31); Albumin Level 4.2 g/dL (3.5-5.0); Alkaline Phosphatase 91 U/L (39-117); Anion Gap 13 (12-20); Aspartate Amino Transferase 31 U/L (5-31); Bilirubin Total 0.1 mg/dL (0.0-1.0); Blood Urea Nitrogen 14 mg/dL (9-16); Calcium 9.3 mg/dL (8.4-10.2); Carbon Dioxide 22 mmol/L (22-29); Chloride 108 mmol/L (96-108); Creatinine Clr Calc Pharmacy 109.1; Estimated Glomerular Filt Rate > 60; Glucose Random 79 mg/dL (60-115); Magnesium 2.1 mg/dL (1.6-2.6); Potassium 3.9 mmol/L (3.3-5.1); Sodium 139 mmol/L (135-145); Total Protein 8.3 g/dL (6.5-8.0)
[2024-05-07 13:03] LABS: Troponin-I High Sensitivity < 2.7 ng/L (<3.5-17.0)
[2024-05-07 13:06] LABS: Influenza A PCR NEGATIVE (Negative); Influenza B PCR NEGATIVE (Negative); Resp Syncy Virus RNA Qual PCR NEGATIVE (Negative); SARS COV2 PCR INHOUSE NEGATIVE (Negative)
[2024-05-07 15:31] VITALS: BP 119/81; PULSE 91; RESP 18; TEMP 36.7; O2SAT 99
== END 2024-05-07 15:32 | disposition home or self-care (01) ==
PROVIDERS: Physician Assistant Medical; Emergency Provider Emergency Medicine
DX: J40 Bronchitis, not specified as acute or chronic (principal); R05.9 Cough, unspecified; Z03.818 Encounter for observation for suspected exposure to other biological agents ruled out; I10 Essential (primary) hypertension
CPT/HCPCS: 0241U; 71046; 80053; 83735; 84484; 85025; 93005; 99283

== ENCOUNTER → 2024-05-07 11:58 | Outpatient (BNV) | payer SELFPAY | PROVIDERS: Visit Provider Radiology Diagnostic Radiology | DX: R07.9 Chest pain, unspecified (principal) | CPT/HCPCS: 71046 ==

== ENCOUNTER → 2024-05-07 11:58 | Outpatient (BNV) | payer SELFPAY | PROVIDERS: Emergency Provider Emergency Medicine; Visit Provider Internal Medicine | DX: R07.9 Chest pain, unspecified (principal) | CPT/HCPCS: 93010 ==

== ENCOUNTER 2024-07-23 19:00 | Emergency (ER) | payer MEDICAID, SELFPAY ==
--- NOTE | ~2024-07-23 | CT_ITS ---
CLINICAL HISTORY: r flank pain, concern for stone CT abdomen and pelvis without contrast Comparison: US/NH/SR - US PELVIC AND TRANSVAGINAL - 09/19/23 01:[address]/NH/SR - CT ABDOMEN PELVIS WO IV CON - 09/18/23 23:36 EDT Findings: CT abdomen: Lung bases are clear. No focal bony lesions. Numerous small bilateral renal calculi are again identified. This is more pronounced than on the right than on the left. No hydronephrosis or perinephric stranding. No ureteral calculi. Gallbladder is contracted. Unenhanced liver, spleen, pancreas, and adrenal glands are unremarkable for acute findings. Large amount of ingested contents within the stomach. No dilated small bowel. No free fluid or free air. CT pelvis: Scattered diverticuli within the colon without findings of diverticulitis. Appendix is normal. No free fluid or free air. No bladder calculi. IMPRESSION: Multiple small nonobstructing bilateral renal calculi. This document has been electronically signed by: Kristopher Willis MD on 07/23/2024 22:58:44
[2024-07-23 19:06] VITALS: BP 142/96; PULSE 80; RESP 18; TEMP 36.9; O2SAT 99; BMI 43.0
--- NOTE | 2024-07-23 19:07 | ED_ITS ---
HPI - General Adult General Chief complaint: Back Pain/Injury Stated complaint: back pain Time Seen by Provider: 07/23/24 21:23 Source: patient Mode of arrival: ambulatory Limitations: no limitations History of Present Illness ED Provider: HPI narrative: Patient's history of kidney stone in the past comes here for acute onset of right-sided flank pain started earlier today got worse radiating to the right lower abdomen with slight amount of hematuria earlier slight nausea no vomiting no fever patient was doing much better since the last time she had stone Related Data Previous Rx's ?Medication ?Instructions ?Recorded acetaminophen 500 mg tablet 1,000 mg (2 x 500 mg) PO QID PRN 01/02/21 (Tylenol Extra Strength) fever or pain #14 tabs azithromycin 250 mg tablet See Rx Instructions PO .COMPLEX #6 01/02/21 tabs cefuroxime axetil 500 mg tablet 500 mg PO BID #20 tabs 01/03/21 codeine 10 mg-guaifenesin 100 mg/5 10 ml PO Q4-6H PRN cough #237 mL 01/03/21 mL oral liquid prednisone 20 mg tablet 40 mg (2 x 20 mg) PO DAILY #10 tabs 01/03/21 doxycycline hyclate 100 mg tablet 100 mg PO Q12H 14 days #28 tabs 04/19/21 metronidazole 500 mg tablet 500 mg PO BID 14 days #28 tabs 04/19/21 lidocaine 5 % topical patch 1 patch topical DAILY #15 ea 01/03/22 cyclobenzaprine 5 mg tablet 5 mg PO BEDTIME PRN muscle spasm 09/04/22 #4 tabs ketorolac 10 mg tablet 10 mg PO Q6H PRN pain 5 days #20 09/04/22 tabs oxycodone 5 mg tablet 5 mg PO Q4H PRN pain #10 tabs 09/05/22 prednisone 20 mg tablet 60 mg (3 x 20 mg) PO DAILY 5 days 09/05/22 #15 tabs benzonatate 200 mg capsule 200 mg PO TID PRN cough #30 caps 12/30/22 cefuroxime axetil 500 mg tablet 500 mg PO BID 7 days #14 tabs 12/30/22 acetaminophen 500 mg capsule 500 mg PO QID PRN pain #14 caps 03/31/23 cyclobenzaprine 10 mg tablet 10 mg PO TID PRN muscle spasm #7 03/31/23 tabs levofloxacin 500 mg tablet 500 mg PO DAILY #6 tabs 03/31/23 ibuprofen 600 mg tablet 600 mg PO Q6H PRN fever or pain 09/19/23 #30 tabs losartan 50 mg tablet 50 mg PO DAILY #90 tabs 11/27/23 azithromycin 250 mg tablet See Rx Instructions PO .COMPLEX #6 05/07/24 tabs benzonatate 100 mg capsule 100 mg PO TID PRN cough #14 caps 05/07/24 oxycodone 5 mg tablet 5 mg PO Q6H PRN pain #20 tabs 07/23/24 Allergies Allergy/AdvReac Type Severity Reaction Status Date / Time morphine Allergy Mild Rash Verified 07/23/24 19:09 Review of Systems 2 Review of Systems: Yes all other systems are reviewed and are negative [facility] Past Medical History Medical History Hypertension Surgical History No pertinent past surgical history No pertinent past surgical history Social History Social History Unable to assess alcohol history related to: Unknown Alcohol intake: current Alcohol intake frequency: holidays/special occasions only Alcohol type: wine Patient Tobacco Use Status: Never used Tobacco Advance Directives: No Advance Directives Information Provided: No Do you have a plan to hurt others: No Plan Physical Exam ED Vital Signs: Vital Signs - 24 hr 07/23/24 19:06 07/23/24 21:05 07/23/24 22:21 Temperature 98.5 F 97.7 F 97.9 F Pulse Rate 80 79 87 Respiratory Rate 18 17 19 Blood Pressure 142/96 H 167/88 H 152/83 H Pulse Oximetry 99 98 100 Oxygen Delivery Method Room Air Room Air Room Air 07/23/24 23:41 07/23/24 23:46 Temperature 97.9 F 97.9 F Pulse Rate 84 84 Respiratory Rate 16 16 Blood Pressure 147/84 H 147/84 H Pulse Oximetry 98 98 Oxygen Delivery Method Room Air Room Air BMI result Body Mass Index 43.0 Appearance: Alert. Oriented X3. In moderate distress Eyes: PERRLA, No Nystagmus ENT: Pharynx normal. Oral Mucosa moist Neck: Normal inspection. Neck supple. CVS: Normal heart rate and rhythm. Pulses normal. Respiratory: No respiratory distress. Equal air entry bilateral, no wheezing/rales/rhonchi Abdomen: Soft and tenderness in right side of abdomen no rebound tenderness or guarding Bowel sounds are present, no mass palpable, right CVA tenderness Skin: Skin warm and dry. Normal skin color. Normal skin turgor. Extremities: No lower extremity edema. No calf tenderness Neuro: Oriented X 3. No motor deficit. Course Course Course Narrative: RME performed by Daja Bedoya PA-C. Patient is a 34 year old assigned female at presenting to the emergency department with right sided flank pain. Patient states that she has a history of kidney stones and this feels similar to one. Patient states that she had blood in her urine since this pain started. Detailed physical exam and review of systems are deferred to the psychology clinician. Labs and imaging ordered. Patient placed back in the waiting room pending room availability and results. Medications Administered Discontinued Medications Generic Name Dose Route Start Last Admin Trade Name Freq PRN Reason Stop Dose Admin Oxycodone HCl 10 mg 07/23/24 23:37 07/23/24 23:43 Oxycodone Hcl Immed Release 5 Mg Tablet PO 07/23/24 23:38 10 mg ONCE ONE Administration Medical Decision Making Medical Decision Making [facility] Narrative: Patient with right renal colic CT scan negative for any obstructive ureteric stone possibly patient already passed the stone. Differential Diagnosis Differential Diagnoses: The differential diagnosis associated with the presentation includes Renal colic/UTI Lab Data [facility] Lab Attestation statement: I reviewed the patient's lab results. 07/23/24 19:20 07/23/24 19:20 Labs: Lab Results 07/23/24 07/23/24 Range/Units 19:20 21:09 WBC 12.4 H (4.8-10.8) X10*3/uL RBC 4.34 (4.20-5.50) X10*6/uL Hgb 9.8 L (12.0-16.0) g/dl Hct 33.1 L (37.0-47.0) % MCV 76.3 L (80.0-98.0) fL MCH 22.6 L (27.0-33.0) pg MCHC 29.6 L (31.0-35.0) g/dl RDW 17.2 H (11.0-16.0) % Plt Count 398 D (160-400) X10*3/uL MPV 10.1 (9.4-12.3) fL Immature Gran % (Auto) 0.6 H (0.0-0.4) % Neut % (Auto) 66.9 (45-73) % Lymph % (Auto) 22.3 (20-40) % [place] % (Auto) 7.5 (2-11) % Eos % (Auto) 2.2 (0-4) % Baso % (Auto) 0.5 (0-2) % Lymph # (Auto) 2.8 (1.2-4.9) X10*3/uL [place] # (Auto) 0.9 (0.1-1.2) X10*3/uL Eos # (Auto) 0.3 (0.0-0.4) X10*3/uL Baso # (Auto) 0.1 (0.0-0.2) X10*3/uL Abs Immat Gran (auto) 0.08 H (0.00-0.03) X10*3/uL Absolute Neuts (auto) 8.3 (2.0-8.3) x10*3/uL Absolute Nucleated RBC 0.000 (0.0-0.012) X10*3/uL Nucleated RBC % (auto) 0.0 (0.0-0.2) /100WBC Sodium 143 (135-145) mmol/L Potassium 4.5 (3.3-5.1) mmol/L Chloride 105 (96-108) mmol/L Carbon Dioxide 27 (22-29) mmol/L Anion Gap 16 (12-20) BUN 15 (9-16) mg/dL Creatinine 0.73 (0.5-1.4) mg/dL Estim Creat Clear Calc 115.2 Estimated GFR > 60 Random Glucose 91 (60-115) mg/dL Calcium 9.6 (8.4-10.2) mg/dL Magnesium 1.9 (1.6-2.6) mg/dL Total Bilirubin 0.2 (0.0-1.0) mg/dL AST 22 (5-31) U/L ALT 21 (0-31) U/L Alkaline Phosphatase 99 (39-117) U/L Total Protein 7.9 (6.5-8.0) g/dL Albumin 4.1 (3.5-5.0) g/dL Beta HCG, Quant < 2 mIU/mL Urine Color Yellow Urine Appearance Clear Urine pH 6.5 (5.0-9.0) Ur Specific Sunshine 1.020 (1.005-1.025) Urine Protein 30 (1+) H (Neg-Trace) mg/dL Urine Glucose (UA) Negative (Negative) mg/dL Urine Ketones Negative (Negative) mg/dL Urine Blood Negative (Negative) Urine Nitrite Negative (Negative) Ur Leukocyte Esterase Negative (Negative) Urine RBC 0-2 (0-2) /HPF Urine WBC 0-5 (0-5) /HPF Ur Squamous Epith Cells 3-5 (0-2) /HPF Urine Bacteria 1+ (None Seen) Hyaline Casts 3-5 (0-2) /LPF Independent Interpretation I performed an independent interpretation of an: CT Scan Radiology Impression Discussion of test interpretation with radiology: I have reviewed the radiologist's reading. Radiologist Impression: IMPRESSION: Multiple small nonobstructing bilateral renal calculi. This document has been electronically signed by: Kristopher Willis MD on 07/23/2024 22:58:44 Discharge Plan Discharge Clinical Impression: Renal colic Patient Disposition: Home, Self-Care Instructions: Renal Colic (ED) Additional Instructions: Likely you had kidney stone in the right side which already passed Drink plenty of fluids Pain medication as prescribed Follow up with your PCP Prescriptions: New oxycodone 5 mg tablet 5 mg PO Q6H PRN (Reason: pain) Qty: 20 0RF Rx Instructions: Partial Fill upon patient request. No Action azithromycin 250 mg tablet See Rx Instructions .ROUTE .COMPLEX Qty: 6 0RF Rx Instructions: take 500 mg today (day 1), then 250 mg for 4 days (days 2-5) acetaminophen [Tylenol Extra Strength] 500 mg tablet 1,000 mg PO QID PRN (Reason: fever or pain) Qty: 14 0RF prednisone 20 mg tablet 40 mg PO DAILY Qty: 10 0RF codeine-guaifenesin 10-100 mg/5 mL liquid 10 ml PO Q4-6H PRN (Reason: cough) Qty: 237 0RF cefuroxime axetil 500 mg tablet 500 mg PO BID Qty: 20 0RF metronidazole 500 mg tablet 500 mg PO BID 14 Days Qty: 28 0RF doxycycline hyclate 100 mg tablet 100 mg PO Q12H 14 Days Qty: 28 0RF lidocaine 5 % adhesive patch,medicated 1 patch topical DAILY Qty: 15 0RF Rx Instructions: leave on most painful area for up to 12 hrs ketorolac 10 mg tablet 10 mg PO Q6H PRN (Reason: pain) 5 Days Qty: 20 0RF Rx Instructions: Patient received Toradol in the emergency room. cyclobenzaprine 5 mg tablet 5 mg PO BEDTIME PRN (Reason: muscle spasm) Qty: 4 0RF prednisone 20 mg tablet 60 mg PO DAILY 5 Days Qty: 15 0RF oxycodone 5 mg tablet 5 mg PO Q4H PRN (Reason: pain) Qty: 10 0RF Rx Instructions: Patient may request partial fill; Partial Fill upon patient request. levofloxacin 500 mg tablet 500 mg PO DAILY Qty: 6 0RF cyclobenzaprine 10 mg tablet 10 mg PO TID PRN (Reason: muscle spasm) Qty: 7 0RF acetaminophen 500 mg capsule 500 mg PO QID PRN (Reason: pain) Qty: 14 0RF ibuprofen 600 mg tablet 600 mg PO Q6H PRN (Reason: fever or pain) Qty: 30 0RF losartan 50 mg tablet 50 mg PO DAILY Qty: 90 0RF azithromycin 250 mg tablet See Rx Instructions .ROUTE .COMPLEX Qty: 6 0RF Rx Instructions: For 250 mg dose pack: take 500 mg today (day 1), then 250 mg for 4 days (days 2-5) benzonatate 100 mg capsule 100 mg PO TID PRN (Reason: cough) Qty: 14 0RF benzonatate 200 mg capsule 200 mg PO TID PRN (Reason: cough) Qty: 30 0RF cefuroxime axetil 500 mg tablet 500 mg PO BID 7 Days Qty: 14 0RF Interventions: ED Discharge Assessment Last Done: 07/23/24 23:46 Discharge Date/Time: 07/23/24 23:46 Print Language: Czech
[2024-07-23 19:25] LABS: MANUAL DIFF FLAG NO
[2024-07-23 19:26] LABS: Basophils Absolute Auto 0.1 X10*3/uL (0.0-0.2); Basophils Percent Auto 0.5 % (0-2); Eosinophils Absolute Auto 0.3 X10*3/uL (0.0-0.4); Eosinophils Percent Auto 2.2 % (0-4); Hematocrit 33.1 % (37.0-47.0); Hemoglobin 9.8 g/dl (12.0-16.0); Imm Gran Abs Auto 0.08 X10*3/uL (0.00-0.03); Imm Gran Pct Auto 0.6 % (0.0-0.4); Lymphocytes Absolute Auto 2.8 X10*3/uL (1.2-4.9); Lymphocytes Percent Auto 22.3 % (20-40); Mean Corpuscular HGB Conc 29.6 g/dl (31.0-35.0); Mean Corpuscular Hemoglobin 22.6 pg (27.0-33.0); Mean Corpuscular Volume 76.3 fL (80.0-98.0); Mean Platelet Volume 10.1 fL (9.4-12.3); Monocytes Absolute Auto 0.9 X10*3/uL (0.1-1.2); Monocytes Percent Auto 7.5 % (2-11); Neutrophils Absolute Auto 8.3 x10*3/uL (2.0-8.3); Neutrophils Percent Auto 66.9 % (45-73); Platelet Count 398 X10*3/uL (160-400); Red Blood Count 4.34 X10*6/uL (4.20-5.50); Red Cell Distribution Width 17.2 % (11.0-16.0); White Blood Count 12.4 X10*3/uL (4.8-10.8)
[2024-07-23 19:46] LABS: Alanine Aminotransferase 21 U/L (0-31); Albumin Level 4.1 g/dL (3.5-5.0); Alkaline Phosphatase 99 U/L (39-117); Anion Gap 16 (12-20); Aspartate Amino Transferase 22 U/L (5-31); Bilirubin Total 0.2 mg/dL (0.0-1.0); Blood Urea Nitrogen 15 mg/dL (9-16); Calcium 9.6 mg/dL (8.4-10.2); Carbon Dioxide 27 mmol/L (22-29); Chloride 105 mmol/L (96-108); Creatinine Clr Calc Pharmacy 115.2; Estimated Glomerular Filt Rate > 60; Glucose Random 91 mg/dL (60-115); Magnesium 1.9 mg/dL (1.6-2.6); Potassium 4.5 mmol/L (3.3-5.1); Sodium 143 mmol/L (135-145); Total Protein 7.9 g/dL (6.5-8.0)
[2024-07-23 19:47] LABS: HCG Quantitative < 2 mIU/mL
[2024-07-23 21:05] VITALS: BP 167/88; PULSE 79; RESP 17; TEMP 36.5; O2SAT 98
[2024-07-23 21:16] LABS: Appearance Urine Clear; Color Urine Yellow; Glucose Urine UA Negative (Negative); Leukocyte Esterase Urine Negative (Negative); Nitrite Urine Negative (Negative); PH 6.5 (5.0-9.0); UMIC TRIGGER UACC YES; Urine Blood Negative (Negative); Urine Ketones Negative (Negative); Urine Protein 30 (1+) mg/dL (Neg-Trace)
--- OUTSIDE RECORDS SUMMARY | 2024-07-23 21:25 | XMS_ITS | Clinical Summary ---
Demographics Address [address] [place] [id number] Mobile Phone Preferred Language Welsh Marital Status Latter Day Affiliation Unknown Race White Ethnic Group or Author Organization [facility] Address [address] [place] [address] Care Team Providers Care Accounting Methods Analyst Name Role Phone Kimberly Davila PA-C Primary Care Provider Source Comments PLEASE NOTE, if this patient is a minor, it may be UNLAWFUL to discuss sensitive information that is contained in these records (such as FAMILY PLANNING, MENTAL HEALTH or SUBSTANCE ABUSE) with the minor patient's parent or other person without the patient's specific authorization.[facility] Allergies Active Allergy Reactions Criticality Noted Date Comments Morphine SOB,Swelling 09/02/2018 Medications [address] tabletIndication s:Precordial pain Take 1 Tablet by mouth once daily 90 Tablet 3 Active ferrous sulfate 325 mg (65 mg iron) tabletIndication s:Iron deficiency anemia, unspecified iron deficiency anemia type Take 1 Tablet by mouth once daily with breakfast 60 Tablet 1 5 Active losartan (COZAAR) 50 mg tabletIndication s:Primary hypertension Take 1 Tablet by mouth once daily 90 Tablet 1 5 Active ferrous sulfate 325 mg (65 mg iron) tabletIndication s:Iron deficiency anemia, unspecified iron deficiency anemia type Take 1 Tablet by mouth once daily with breakfast 60 Tablet 2 07/15/19 25 Discontin ued(Reord er (E-Cancel Not Sent)) losartan (COZAAR) 50 mg tabletIndication s:Primary hypertension Take 1 Tablet by mouth once daily 90 Tablet 3 07/15/19 25 Discontin ued(Reord er (E-Cancel Not Sent)) Active Problems Problem Noted Date Diagnosed Date Primary hypertension 07/11/2024 Iron deficiency anemia 07/11/2024 Polydipsia 07/11/2024 Prediabetes 07/11/2024 Encounters Date Type Department Care Team Description 07/14/2024 Results Follow-Up [address] [phone] Kimberly Davila PA-C Iron deficiency anemia, unspecified iron deficiency anemia type; Primary hypertension 07/11/2024 11:40 AM EDT Telemedicine Visit [address] [phone] Kimberly Davila PA-C Primary hypertension (Primary Dx); Iron deficiency anemia, unspecified iron deficiency anemia type; Polydipsia; Prediabetes from Last 3 Months Immunizations Immunization Administration Dates Next Due Flu, Multi Dose 0.5 ML 12/24/2020 TDAP 01/07/2021 Varicella (Varivax), Live Vaccine 10/28/2021 Social History Tobacco Use Types Packs/Day Years Used Date Smoking Tobacco: Never Smokeless Tobacco: Never Tobacco Cessation:Counseling Given: Yes Alcohol Use Standard Drinks/Week Comments Yes 0 (1 standard drink = 0.6 oz pur e alcohol) occasional Social Connections Answer Date Recorded Connectedness 0 01/07/2021 Financial Resource Strain Answer Date R ecorded Financial Resource Strain 0 2020 Stress Answer Date Recorded Stress 0 01/07/2021 Physical Activity Answer Date Recorded Physical Activity 0 01/07/2021 Food Insecurity Answer Date Recorded Food 0 01/07/2021 Transportation Needs Answer Date Record ed Transportation 0 01/07/2021 Housing Stability Answer Date Recorded Housing 0 01/07/2021 Safety and Environment Answer Date Tucker rded Safety 1 07/11/2024 Utilities Answer Date Recorded Utilities 0 01/07/2021 Employment Answer Date Recorded Employment 0 01/07/2021 Comments No Sex and Gender Information Value Date Recorded Sex Assigned at Female 01/07/2021 7:43 PM PDT Legal Sex Female 1:19 PM PDT Gender Identity Female 01/07/2021 7:43 PM PDT Sexual Orientation Straight 01/07/2021 7: 43 PM PDT Last Filed Vital Signs Vital Sign Reading Time Taken Comments Blood Pressure 126/74 10/02/2022 8:43 AM EDT Pulse 70 10/02/2022 8:43 AM EDT Temperature 36.8 ??C (98.3 ??F) 10/02/2022 8:43 AM ED T Respiratory Rate 16 10/02/2022 8:43 AM EDT Oxygen Saturation - - Inhaled Oxygen Concentration - - Weight 95.4 kg (210 lb 6.4 oz) 10/02/2022 8:43 A M EDT Height 152.4 cm (5') 10/02/2022 8:43 AM EDT Body Mass Index 41.09 10/02/2022 8:43 AM EDT Plan of Treatment Upcoming Encounters Date Type Department Care Team (Late st Contact Info) Description 08/10/2024 2:40 PM EDT Office Visit [facility] [address] [place] [phone] Kimberly Davila PA-C [address] [place] [address] Health Maintenance Due Date Last Done Comments Anxiety Screening 1990 01/07/2021 HPV Screening 1990 Imm-Hepatitis B (1 of 3 - 19 + 3-dose series) 2009 Pap Smear 2011 Annual Preventive Care Visit 10/03/2023 10/02/2022 [id number] ( season) 2023 04/12/2021, 08/25/2020, 08/04/2020 Imm-Influenza (#1) 2023 01/09/2022, 12/24/2020 Depression Monitoring 10/10/2024 07/11/2024 , 10/02/2022, 01/07/2021 Relationship Safety Screening/Counseling 07/11/2025 07/11/2024, 10/02/2022, 01/07/2021 Tobacco Screening 07/11/2025 07/11/2024 Diabetes Screening 07/13/2025 07/13/2024, 0 07/13/2024, 10/02/2022, Additional history exists Lipid Screening 07/14/2027 07/13/2024, 09/14, 10/14/2021, Additional history exists Cervical Cancer Screening 07/26/2027 Pap + HPV 07/26/2027 07/25/2022 Imm-DTaP/Tdap/Td (3 - Td or Tdap) 02/10/2032 022, 01/07/2021 HIV Screening Completed 01/07/2021 Hepatitis C Screening Completed 01/07/2021 Alcohol and Drug Screen Completed 07/11/2024, 01/07 Cervical Ablation/Cold-Knife Conization Discontinued Cervical Cryotherapy Discontinued Colposcopy Discontinued Endometrial Biopsy Discontinued Excision/Leep Discontinued HPV Genotyping Discontinued Vaginal Pap Discontinued Vulvoscopy Discontinued Procedures Procedure Name Priority Date/Time Associated Diagnosis Comments VITAMIN B12 & FOLATE Routine 07/13/2024 9:35 AM EDT Iron deficiency anemia, unspecified iron deficiency anemia type IRON, TIBC, FERRITIN PANEL Routine 07/13/2024 9:35 AM EDT Iron deficiency anemia, unspecified iron deficiency anemia type HGA1C W/EAG Routine 07/13/2024 9:35 AM EDT Prediabetes TSH W/RFLX FREE T4 Routine 07/13/2024 9: 35 AM EDT Primary hypertension LIPIDS W RFLX TO DIRECT LDL Routine 07/13/2024 9:35 AM EDT Prediabetes COMPREHENSIVE METABOLIC PANEL Routine 07/13/2024 9:35 AM EDT Primary hypertension BLOOD COUNT COMPLETE AUTO&AUTO DIFRNTL WBC Routine 07/13/2024 9:35 AM EDT Iron deficiency anemia, unspecified iron deficiency anemia type HIV 1/2 AG & AB W/RFLX (4TH GEN) Routine 01/07/2021 12:01 PM EDT Encounter to establish care ACUTE HEPATITIS PANEL W/RFLX Routine 01/07/2021 12:01 PM EDT Immunization due from Last 3 Months or Most Recently Relevant to Health Maintenance Results * (ABNORMAL) HGA1C W/EAG (07/13/2024 9:35 AM EDT) HEMOGLOBIN A1C 6.0(H) <5.7 % [facility] Comment: For someone without known diabetes, a hemoglobin A1c value between 5.7% and 6.4% is consistent with prediabetes and should be confirmed with a follow-up test. For someone with known diabetes, a value <7% indicates that their diabetes is well controlled. A1c targets should be individualized based on duration of diabetes, age, comorbid conditions, and other considerations. This assay result is consistent with an increased risk of diabetes. Currently, no consensus exists regarding use of hemoglobin A1c for diagnosis of diabetes for children. EAG (MG/DL) 126 mg/dL [facility] EAG (MMOL/L) 7.0 mmol/L [facility] Blood Blood / Unknown 07/13/2024 9 :35 AM EDT 07/13/2024 9:35 AM EDT Narrative [facility] - 07/14/2024 8:44 AM EDT FASTING:YES Kimberly Davila PA-C LAB - BLOOD DRAW Edited Resu lt - Final Performing Organization Address City/[facility] de Phone Number [facility] [address] [address], [facility] [address] [address] * (ABNORMAL) IRON, TIBC, FERRITIN PANEL (07/13/2024 9:35 AM EDT) FERRITIN 3(L) 16 - 154 ng/mL [facility] IRON, TOTAL 17(L) 40 - 190 mcg/dL [facility] IRON BINDING CAPACITY 443 250 - 450 mcg/dL (calc) [facility] % SATURATION 4(L) 16 - 45 % (calc) [facility] Blood Blood / Unknown 07/13/2024 9 :35 AM EDT 07/13/2024 9:35 AM EDT Narrative [facility] - 07/14/2024 8:44 AM EDT FASTING:YES us Kimberly Davila PA-C LAB - BLOOD DRAW Final Resul t Performing Organization Address [facility] Co de Phone Number [facility] [address] [address], [facility] [address] [address] * TSH W/RFLX FREE T4 (07/13/2024 9:35 AM EDT) TSH W/REFLEX TO FT4 1.09 0.40 - 4.50 mIU/L [facility] Comment: ?Reference Range ?> or = 20 Years ??0.40-4.50 ? Ranges ?First trimester ?0.26-2.66 ?Second trimester ?? 0.55-2.73 ?Third trimester ?0.43-2.91 Blood Blood / Unknown 07/13/2024 9 :35 AM EDT 07/13/2024 9:35 AM EDT Narrative [facility] - 07/14/2024 8:44 AM EDT FASTING:YES Kimberly Davila PA-C LAB - BLOOD DRAW Edited Resu lt - Final [facility] [address] [address], [facility] [address] [address] * LIPIDS W RFLX TO DIRECT LDL (07/13/2024 9:35 AM EDT) Pathologist [facility] CHOLESTEROL, TOTAL 167 <200 mg/dL [facility] HDL CHOLESTEROL 51 > OR = 50 mg/dL [facility] TRIGLYCERIDES 80 <150 mg/dL [facility] LDL-CHOLESTEROL 99 99 mg/dL (calc) [facility] Comment: Reference range: <100 Desirable range <100 mg/dL for primary prevention; ?? <70 mg/dL for patients with CHD or diabetic patients with > or = 2 CHD risk factors. LDL-C is now calculated using the Kalen-Austin calculation, which is a validated novel method providing better accuracy than the Friedewald equation in the estimation of LDL-C. Kalen SS et al. KENDELL. 2013;310(20): 2330-0210 (http://education.Think1stBoxing.com/faq/UYE539) CHOL/HDLC RATIO 3.3 <5.0 (calc) [facility] NON-HDL CHOLESTEROL 116 <130 mg/dL (calc) [facility] Comment: For patients with diabetes plus 1 major ASCVD risk factor, treating to a non-HDL-C goal of <100 mg/dL (LDL-C of <70 mg/dL) is considered a therapeutic option. Blood Blood / Unknown 07/13/2024 9 :35 AM EDT 07/13/2024 9:35 AM EDT Narrative [facility] - 07/14/2024 8:44 AM EDT FASTING:YES Kimberly Davila PA-C LAB - BLOOD DRAW Final Resul t [facility] [address] [address], [facility] [address] [place] [address] * VITAMIN B12 & FOLATE (07/13/2024 9:35 AM EDT) [facility] VITAMIN B12 357 200 - 1,100 pg/mL [facility] Comment: Please Note: Although the reference range for vitamin B12 is 200-1100 pg/mL, it has been reported that between 5 and 10% of patients with values between 200 and 400 pg/mL may experience neuropsychiatric and hematologic abnormalities due to occult B12 deficiency; less than 1% of patients with values above 400 pg/mL will have symptoms. FOLATE, SERUM 6.4 5.5 ng/mL [facility] Comment: ? Reference Range ? Low: ? <3.4 ? Borderline: ?3.4-5.4 ? Normal: ?>5.4 Blood Blood / Unknown 07/13/2024 9 :35 AM EDT 07/13/2024 9:35 AM EDT Narrative [facility] - 07/14/2024 8:44 AM EDT FASTING:YES us Kimberly Davila PA-C LAB - BLOOD DRAW Final Resul t [facility] [address] [place] [address], [facility] [address] [place] [phone] * (ABNORMAL) BLOOD COUNT COMPLETE AUTO&AUTO DIFRNTL WBC (07/13/2024 9:35 AM EDT) Pathologist [facility] WHITE BLOOD CELL COUNT 9.0 3.8 - 10.8 Thousand/ uL [facility] RED BLOOD CELL COUNT 4.21 3.80 - 5.10 Million/u L [facility] HEMOGLOBIN 9.7(L) 11.7 - 15.5 g/dL [facility] HEMATOCRIT 32.2(L) 35.0 - 45.0 % [facility] MCV 76.5(L) 80.0 - 100.0 fL [facility] MCH 23.0(L) 27.0 - 33.0 pg [facility] MCHC 30.1(L) 32.0 - 36.0 g/dL [facility] Comment: For adults, a slight decrease in the calculated MCHC value (in the range of 30 to 32 g/dL) is most likely not clinically significant; however, it should be interpreted with caution in correlation with other red cell parameters and the patient's clinical condition. RDW 17.0(H) 11.0 - 15.0 % [facility] PLATELET COUNT 379 140 - 400 Thousand/ uL [facility] MPV 11.1 7.5 - 12.5 fL [facility] ABSOLUTE NEUTROPHILS 5,454 1,500 - 7,800 cells/uL [facility] ABSOLUTE LYMPHOCYTES 2,637 850 - 3,900 cells/uL [facility] ABSOLUTE MONOCYTES 684 200 - 950 cells/uL [facility] ABSOLUTE EOSINOPHILS 162 15 - 500 cells/uL [facility] ABSOLUTE BASOPHILS 63 0 - 200 cells/uL [facility] NEUTROPHILS PCT 60.6 % QUES T Imagine K12 [facility] LYMPHOCYTES 29.3 % [facility] AGNkooaba [facility] MONOCYTES 7.6 % [facility] EOSINOPHILS 1.8 % [facility] BASOPHILS 0.7 % [facility] [employer] Blood Blood / Unknown 07/13/2024 9 :35 AM EDT 07/13/2024 9:35 AM EDT Narrative [facility] - 07/14/2024 8:44 AM EDT FASTING:YES Kimberly Davila PA-C LAB - BLOOD DRAW Edited Resu lt - Final [facility] [address] [address], [employer] [facility] [address] [place] [address] * COMPREHENSIVE METABOLIC PANEL (07/13/2024 9:35 AM EDT) Pathologist [facility] GLUCOSE 95 65 - 99 mg/dL [employer] [facility] Comment: ?Fasting reference interval UREA NITROGEN (BUN) 12 7 - 25 mg/dL [employer] [facility] CREATININE (blood) 0.58 0.50 - 0.97 mg/dL [employer] [facility] EGFR 122 > OR = 60 mL/min/1. 73m2 [facility] BUN/CREATININE RATIO SEE NOTE: [facility] Comment: ?? Not Reported: BUN and Creatinine are within ?? reference range. ? SODIUM 140 135 - 146 mmol/L [employer] [facility] POTASSIUM 4.8 3.5 - 5.3 mmol/L [facility] CHLORIDE 105 98 - 110 mmol/L [facility] CARBON DIOXIDE 29 20 - 32 mmol/L [facility] CALCIUM 9.1 8.6 - 10.2 mg/dL [facility] PROTEIN, TOTAL 7.1 6.1 - 8.1 g/dL [employer] ALBUMIN 4.0 3.6 - 5.1 g/dL [facility] GLOBULIN 3.1 1.9 - 3.7 g/dL (calc) [facility] ALBUMIN/GLOBULI N RATIO 1.3 1.0 - 2.5 (calc) [facility] [place] [facility] BILIRUBIN, TOTAL 0.2 0.2 - 1.2 mg/dL [facility] ALKALINE PHOSPHATASE 85 31 - 125 U/L [facility] AST 16 10 - 30 U/L [facility] ALT 18 6 - 29 U/L [facility] Blood Blood / Unknown 07/13/2024 9 :35 AM EDT 07/13/2024 9:35 AM EDT Narrative [facility] - 07/14/2024 8:44 AM EDT FASTING:YES Kimberly Davila PA-C LAB - BLOOD DRAW Edited Resu lt - Final [facility] [address] [address], [facility] [address] [address] * HIV 1/2 AG & AB W/RFLX (4TH GEN) (01/07/2021 12:01 PM EDT) HIV AG/AB, 4TH GEN NON-REAC TIVE NON-REAC TIVE [facility] Comment: HIV-1 antigen and HIV-1/HIV-2 antibodies were not detected. There is no laboratory evidence of HIV infection. PLEASE NOTE: This information has been disclosed to you from records whose confidentiality may be protected by state law. ??If your state requires such protection, then the state law prohibits you from making any further disclosure of the information without the specific written consent of the person to whom it pertains, or as otherwise permitted by law. A general authorization for the release of medical or other information is NOT sufficient for this purpose. ?? For additional information please refer to http://education.StowThat.Thelial Technologies/faq/UDJ502 (This link is being provided for informational/ educational purposes only.) The performance of this assay has not been clinically validated in patients less than 2 years old. Blood Blood / Unknown 01/07/2021 1 2:01 PM EDT 01/07/2021 12:02 PM EDT Kimberly Sosana PA-C LAB - BLOOD DRAW Final Resul t [facility] [address] [address], [facility] [address],[facility] [place] [address] * ACUTE HEPATITIS PANEL W/RFLX (01/07/2021 12:01 PM EDT) HEPATITIS A IGM ANTIBODY NON-REACT PAUL NON-REACT PAUL [facility] COMMENT [facility] HEPATITIS B SURFACE ANTIGEN NON-REACT PAUL NON-REACT PAUL [facility] HEPATITIS B CORE IGM ANTIBODY NON-REACT PAUL NON-REACT PAUL [facility] HEPATITIS C ANTIBODY NON-REACT PAUL NON-REACT PAUL [facility] SIGNAL TO CUT-OFF 0.01 <1.00 [employer] [facility] Comment: HCV antibody was non-reactive. There is no laboratory evidence of HCV infection. In most cases, no further action is required. However, if recent HCV exposure is suspected, a test for HCV RNA (test code 06237) is suggested. For additional information please refer to http://MatsSoft.Pathgather/faq/MHQ90y0 (This link is being provided for informational/ educational purposes only.) Blood Blood / Unknown 01/07/2021 1 2:01 PM EDT 01/07/2021 12:02 PM EDT Narrative [facility] [employer] [facility] - 01/08/2021 9:10 PM EDT For additional information, please refer to http://MatsSoft.Pathgather/faq/ZUT740 (This link is being provided for informational/ educational purposes only.) Kimberly Sosana PA-C LAB - BLOOD DRAW Final Resul t Performing Organization Address City/[facility]/ZIP Co de Phone Number [facility] [address] [address], [facility] [address] [address] from Last 3 Months or Most Recently Relevant to Health Maintenance Insurance [id number] Care Teams Accounting Methods Analyst Relationship Specialty Start Date End Date Kimberly Davila PA-C [address] [place] [address] PCP - General Internal Medicine 11/06/20
[2024-07-23 21:31] LABS: Bacteria Urine 1+ (None Seen); RBC Urine 0-2 /HPF (0-2); WBC Urine 0-5 /HPF (0-5)
[2024-07-23 22:21] VITALS: BP 152/83; PULSE 87; RESP 19; TEMP 36.6; O2SAT 100
[2024-07-23 23:41] VITALS: BP 147/84; PULSE 84; RESP 16; TEMP 36.6; O2SAT 98
[2024-07-23] MEDS: oxyCODONE HCl Immed Release 5 MG TABLET 10 MG PO (23:43)
[2024-07-23 23:46] VITALS: BP 147/84; PULSE 84; RESP 16; TEMP 36.6; O2SAT 98
== END 2024-07-23 23:46 | disposition home or self-care (01) ==
PROVIDERS: Physician Assistant Medical; Emergency Provider Internal Medicine; PCP Dentist General Practice
DX: N23 Unspecified renal colic (principal); M54.50 Low back pain, unspecified; R31.9 Hematuria, unspecified; Z79.899 Other long term (current) drug therapy
CPT/HCPCS: 36415; 74176; 80053; 81001; 83735; 84702; 85025; 99284

== ENCOUNTER → 2024-07-23 19:08 | Outpatient (BNV) | payer MEDICAID, SELFPAY | PROVIDERS: Emergency Provider Internal Medicine; PCP Dentist General Practice; Visit Provider Radiology Diagnostic Radiology | DX: R10.9 Unspecified abdominal pain (principal) | CPT/HCPCS: 74176 ==

== ENCOUNTER 2024-10-05 11:51 | Emergency (ER) | payer MEDICAID, SELFPAY ==
--- NOTE | ~2024-10-05 | XR_ITS ---
EXAMINATION: XR HIP, RIGHT CLINICAL INFORMATION: pain since this am COMPARISON: None available. TECHNIQUE: AP upright, AP supine, and frog-leg lateral views of the right hip. FINDINGS: SI and pubic symphysis joints are unremarkable. Hip joint spaces are congruent and symmetrical without narrowing. There are no osteophytes. There is no deformity. XR/XR hip RT w PEL1V IMPRESSION: Unremarkable right hip. Electronically signed by: Juan M Richards MD 10/05/2024 12:15 PM EDT
[2024-10-05 11:56] VITALS: BP 164/89; PULSE 82; RESP 18; TEMP 36.2; O2SAT 99; BMI 41.4
--- NOTE | 2024-10-05 11:56 | ED.GENADULT ---
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 Denies saddle anesthesia or bowel/bladder incontinence or retention. Denies fever. MD complaint: back pain Onset (ago): hour(s) Related Data Previous Rx's ?Medication ?Instructions ?Recorded acetaminophen 500 mg tablet 1,000 mg (2 x 500 mg) PO QID PRN 01/02/21 (Tylenol Extra Strength) fever or pain #14 tabs azithromycin 250 mg tablet See Rx Instructions PO .COMPLEX #6 01/02/21 tabs cefuroxime axetil 500 mg tablet 500 mg PO BID #20 tabs 01/03/21 codeine 10 mg-guaifenesin 100 mg/5 10 ml PO Q4-6H PRN cough #237 mL 01/03/21 mL oral liquid prednisone 20 mg tablet 40 mg (2 x 20 mg) PO DAILY #10 tabs 01/03/21 doxycycline hyclate 100 mg tablet 100 mg PO Q12H 14 days #28 tabs 04/19/21 metronidazole 500 mg tablet 500 mg PO BID 14 days #28 tabs 04/19/21 lidocaine 5 % topical patch 1 patch topical DAILY #15 ea 01/03/22 cyclobenzaprine 5 mg tablet 5 mg PO BEDTIME PRN muscle spasm 09/04/22 #4 tabs ketorolac 10 mg tablet 10 mg PO Q6H PRN pain 5 days #20 09/04/22 tabs oxycodone 5 mg tablet 5 mg PO Q4H PRN pain #10 tabs 09/05/22 prednisone 20 mg tablet 60 mg (3 x 20 mg) PO DAILY 5 days 09/05/22 #15 tabs benzonatate 200 mg capsule 200 mg PO TID PRN cough #30 caps 12/30/22 cefuroxime axetil 500 mg tablet 500 mg PO BID 7 days #14 tabs 12/30/22 acetaminophen 500 mg capsule 500 mg PO QID PRN pain #14 caps 03/31/23 cyclobenzaprine 10 mg tablet 10 mg PO TID PRN muscle spasm #7 03/31/23 tabs levofloxacin 500 mg tablet 500 mg PO DAILY #6 tabs 03/31/23 ibuprofen 600 mg tablet 600 mg PO Q6H PRN fever or pain 09/19/23 #30 tabs losartan 50 mg tablet 50 mg PO DAILY #90 tabs 11/27/23 azithromycin 250 mg tablet See Rx Instructions PO .COMPLEX #6 05/07/24 tabs benzonatate 100 mg capsule 100 mg PO TID PRN cough #14 caps 05/07/24 oxycodone 5 mg tablet 5 mg PO Q6H PRN pain #20 tabs 07/23/24 lidocaine 5 % topical patch 1 patch topical DAILY #15 ea 10/05/24 naproxen 500 mg tablet 500 mg PO BID #14 tabs 10/05/24 prednisone 10 mg tablet See Rx Instructions .Route 10/05/24 .COMPLEX #15 tabs Allergies Allergy/AdvReac Type Severity Reaction Status Date / Time morphine Allergy Mild Rash Verified 10/05/24 11:59 Review of Systems Review of Systems: As per HPI Yes all other systems are reviewed and are negative Constitutional: Constitutional: Reports as per HPI [facility] Past Medical History Medical History Hypertension Surgical History No pertinent past surgical history No pertinent past surgical history Social History Social History Unable to assess alcohol history related to: Unknown Alcohol intake: current Alcohol intake frequency: holidays/special occasions only Alcohol type: wine Patient Tobacco Use Status: Never used Tobacco Advance Directives: No Advance Directives Information Provided: Yes Do you have a plan to hurt others: No Plan Physical Exam ED Vital Signs: Vital Signs - 24 hr 10/05/24 11:56 Temperature 97.2 F Pulse Rate 82 Respiratory Rate 18 Blood Pressure 164/89 H Pulse Oximetry 99 BMI result Body Mass Index 41.4 Vital signs have been reviewed and appear to be correct. Blood pressure elevated. Heart rate normal. Respiratory rate normal. Temperature normal. Oxygen saturation normal. Const General: cooperative, healthy appearing and no acute distress Orientation/consciousness: oriented to person, oriented to place, oriented to time and patient oriented x3 Limitations: no limitations HENMT Head: Yes normocephalic and Yes atraumatic Ears: external ears normal General nose exam: Normal external nose present Face and sinus: Yes face symmetric Mouth: oropharynx normal and moist mucous membranes Throat: Yes uvula midline Eyes Pupils: Equal, round and reactive pupils present Neck Neck: Yes normal visual inspection, Yes no meningeal signs and Yes supple Resp Effort & Inspection: normal respiratory effort and able to speak in complete sentences Auscultation: clear to auscultation bilaterally Cardio Rate: regular rate Rhythm: regular rhythm Heart sounds: S1 normal heart sound present and S2 normal heart sound present GI Palpation (GI): Soft to palpation and nontender Auscultation: normoactive bowel sounds General: Yes no CVA tenderness Back/Spine/Pelvis Back: no CVA tenderness Thoracic/Lumbar Spine: thoracic and lumbar spine normal to inspection, thoraco-lumbar ROM normal, straight leg raise negative bilaterally, pain with thoraco-lumbar ROM, paraspinal muscle tenderness on the right in the mid lumbar, No thoracic spinal tenderness and No lumbar spinal tenderness Skin General skin exam: elasticity normal and turgor normal Neuro General: oriented to person, oriented to place, oriented to time, patient oriented x3, gait normal, tone normal, moves all extremities, Normal light touch and pain sensation, no meningeal signs, no focal motor deficits, CN's II-XI intact bilaterally and deep tendon reflexes 2+ bilaterally Cranial nerves: Yes Equal, round and reactive pupils present Cognition (Neuro): normal cognition Motor exam (neuro): 5/5 motor strength present throughout, Normal motor muscle tone present throughout and Motor abnormalities not present Extrem General: Yes full ROM, Yes no pedal edema and Yes no calf tenderness Psych Mental Status: mental status grossly normal Affect: normal affect Thought process: Normal thought process present Course Course Course Narrative: This is a rapid medical exam performed by Latrice Valencia NP: Additional HPI, ROS, PE not included below will be deferred to primary provider. 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 Plan: imaging Medical Decision Making Medical Decision Making MDM Narrative: Patient is a 34-year-old female presenting with complaint of right hip pain radiating down right leg since this morning, describing as 'bone on bone.' On exam patient is awake, A+Ox3, VS WNL, afebrile, normal neurological exam without focal deficits, physical exam findings as above. Given reported symptoms and physical exam findings, initial differential includes but is not limited to initial differential includes lumbar strain, lumbar radiculopathy, degenerative disc disease, disc herniation, spinal stenosis, spondylosis. Less likely vertebral fracture. Do not suspect malignancy/mass, SEA, cauda equina/cord compression. X-ray right hip/pelvis notable for no evidence of osteoarthritis, acute fracture. My interpretation is in agreement with the radiologist's interpretation. History and physical exam consistent with lumbar radiculopathy. Results discussed with patient and all questions answered. Will treat with prednisone, naproxen and lidocaine patches. Follow up with PCP as needed. Return precautions discussed. Patient verbalized understanding of and agreement with plan. Differential Diagnosis Differential Diagnoses: The differential diagnosis associated with the presentation includes as per [facility] Admission/Observation Consideration of admission/observation: Escalation of care including admission/observation considered Patient would have been admitted to the hospital had their clinical presentation warranted hospital admission. Independent Interpretation I performed an independent interpretation of an: Plain X-Ray Interpretation: No acute fracture or evidence of osteoarthritis on right hip x-ray Radiology Impression Discussion of test interpretation with radiology: I have reviewed the radiologist's reading. Radiologist Impression: XR/XR hip RT w PEL1V IMPRESSION: Unremarkable right hip. External Record Review External record reviewed: Inpatient record, Office record and Outpatient record Prescription Management I considered prescription management with: Pain Medication and Other Discharge Plan Discharge Clinical Impression: Lumbar radiculopathy Patient Disposition: Home, Self-Care Instructions: Lumbar Radiculopathy (ED), Lower Back Exercises (ED) Additional Instructions: You were evaluated in the emergency department today for lower back pain. This is likely due to an inflammation of the sciatic nerve with runs from the lower back down both legs. You are being prescribed a course of prednisone which is a steroid to decrease inflammation. You are also being prescribed naproxen which is an anti-inflammatory medication. You have been prescribed 5% topical lidocaine patches which you can wear for up to 12 hours in a 24 hour period. Do not apply heat directly over the patches. Use all medications as prescribed. Please schedule an appointment for follow-up with your primary care physician this week for further evaluation of your symptoms. Return to the emergency department if you experience worsening back pain, difficulty walking, fevers, numbness, tingling, incontinence, groin numbness or tingling, or any other concerning symptoms. Prescriptions: New prednisone 10 mg tablet See Rx Instructions .ROUTE .COMPLEX Qty: 15 0RF Rx Instructions: 50mg (5 tabs) x1 day, then 40 mg (4 tabs) x1 day, then 30 mg (3 tabs) x1 day, then 20 mg (2 tabs) times 1 day, then 10 mg (1 tab) x1 day naproxen 500 mg tablet 500 mg PO BID Qty: 14 0RF lidocaine 5 % adhesive patch,medicated 1 patch topical DAILY Qty: 15 0RF Rx Instructions: leave on most painful area for up to 12 hrs No Action azithromycin 250 mg tablet See Rx Instructions .ROUTE .COMPLEX Qty: 6 0RF Rx Instructions: take 500 mg today (day 1), then 250 mg for 4 days (days 2-5) acetaminophen [Tylenol Extra Strength] 500 mg tablet 1,000 mg PO QID PRN (Reason: fever or pain) Qty: 14 0RF prednisone 20 mg tablet 40 mg PO DAILY Qty: 10 0RF codeine-guaifenesin 10-100 mg/5 mL liquid 10 ml PO Q4-6H PRN (Reason: cough) Qty: 237 0RF cefuroxime axetil 500 mg tablet 500 mg PO BID Qty: 20 0RF metronidazole 500 mg tablet 500 mg PO BID 14 Days Qty: 28 0RF doxycycline hyclate 100 mg tablet 100 mg PO Q12H 14 Days Qty: 28 0RF lidocaine 5 % adhesive patch,medicated 1 patch topical DAILY Qty: 15 0RF Rx Instructions: leave on most painful area for up to 12 hrs ketorolac 10 mg tablet 10 mg PO Q6H PRN (Reason: pain) 5 Days Qty: 20 0RF Rx Instructions: Patient received Toradol in the emergency room. cyclobenzaprine 5 mg tablet 5 mg PO BEDTIME PRN (Reason: muscle spasm) Qty: 4 0RF prednisone 20 mg tablet 60 mg PO DAILY 5 Days Qty: 15 0RF oxycodone 5 mg tablet 5 mg PO Q4H PRN (Reason: pain) Qty: 10 0RF Rx Instructions: Patient may request partial fill; Partial Fill upon patient request. levofloxacin 500 mg tablet 500 mg PO DAILY Qty: 6 0RF cyclobenzaprine 10 mg tablet 10 mg PO TID PRN (Reason: muscle spasm) Qty: 7 0RF acetaminophen 500 mg capsule 500 mg PO QID PRN (Reason: pain) Qty: 14 0RF ibuprofen 600 mg tablet 600 mg PO Q6H PRN (Reason: fever or pain) Qty: 30 0RF losartan 50 mg tablet 50 mg PO DAILY Qty: 90 0RF azithromycin 250 mg tablet See Rx Instructions .ROUTE .COMPLEX Qty: 6 0RF Rx Instructions: For 250 mg dose pack: take 500 mg today (day 1), then 250 mg for 4 days (days 2-5) benzonatate 100 mg capsule 100 mg PO TID PRN (Reason: cough) Qty: 14 0RF oxycodone 5 mg tablet 5 mg PO Q6H PRN (Reason: pain) Qty: 20 0RF Rx Instructions: Partial Fill upon patient request. benzonatate 200 mg capsule 200 mg PO TID PRN (Reason: cough) Qty: 30 0RF cefuroxime axetil 500 mg tablet 500 mg PO BID 7 Days Qty: 14 0RF Stand Alone Forms: Work/School Release Print Language: Japanese
[2024-10-05 13:02] VITALS: BP 164/89; PULSE 82; RESP 18; TEMP 36.2; O2SAT 99
--- OUTSIDE RECORDS SUMMARY | 2024-10-05 13:36 | XMS_ITS | Clinical Summary ---
Author Organization [employer] Address [address] [facility] [address] [place] [address] Care Team Providers Care Brothel Keeper Name Role Phone Unavailable Primary Care Provider Unavailabl e Encounters Date Type Department Care Team Description 10/04/2024 Population Health Risk Score [facility] Department [address] [facility] [address] [place] [address] Provider, Population Health Generic from Last 3 Months Social History Tobacco Use Types Packs/Day Years Used Date Smoking Tobacco: Never Assessed Comments Unknown Sex and Gender Information Value Date Recorded Sex Assigned at Not on file Legal Sex Female 9:30 PM EDT Gender Identity Not on file Sexual Orientation Not on file Plan of Treatment Health Maintenance Due Date Last Done Comments Depression Screening 1990 HIV Screening 1990 SDOH Screening 1990 Disability Screening 1990 Alcohol/Substance Use Screening 2002 Tobacco Screening 2002 Family Planning (PISQ) 2005 HPV Vaccines (1 - 3-dose series) 2005 Hepatitis C Screening 2008 DTaP/Tdap/Td Vaccines (1 - Tdap) 2009 Hepatitis B Vaccines (1 of 3 - 19+ 3-dose series) 2009 Pap Smear 2011 Cervical Cancer Screening 2020 HPV/Cotest 2020 COVID-19 Vaccine (1 - 2023-2 5 season) 2023 Influenza Vaccine (#1) 2024 Zoster Vaccines (1 of 2) 2040 RSV Patients and Pa tients Aged 60 years or older (1 - 1-dose 75+ series) 2065 HIB Vaccines Aged Out No longer eligi ble based on patient's age to complete this topic Hepatitis A Vaccines Aged Out No long er eligible based on patient's age to complete this topic IPV Vaccines Aged Out No longer eligi ble based on patient's age to complete this topic Meningococcal B Vaccine Aged Out No l onger eligible based on patient's age to complete this topic Meningococcal Vaccine Aged Out No gerard niki eligible based on patient's age to complete this topic Pneumococcal Vaccine: Pediat rics (0 to 5 Years) and At-Risk Patients (6 to 49) Years Aged Out No longer eligible b ased on patient's age to complete this topic RSV under 20 months Aged Out No longe r eligible based on patient's age to complete this topic Rotavirus Vaccines Aged Out No longer eligible based on patient's age to complete this topic
--- OUTSIDE RECORDS SUMMARY | 2024-10-05 13:36 | XMS_ITS | Clinical Summary ---
Author Organization [facility] Address [address] [place] [address] Care Team Providers Care Manager Garage Name Role Phone Pcp, Donovan Velazco MD Primary Care Provider [phone] Allergies Active Allergy Reactions Criticality Noted Date [...] 64 08/05/2019 12:40 PM EDT Temperature 36.7 C (98 F) 08/05/2019 12:40 PM EDT Respiratory Rate 18 [...] (P ap Smear) 2011 Influenza Vaccine (#1) 2024 Pneumococcal Vaccine Aged Out No long er eligible based on patient's age to complete this topic RSV Ped < 20 months Aged Out No longe r eligible based on patient's age to complete this topic Care Teams Manager Garage Relationship Specialty Start Date End Date Pcp, Donovan Velazco MD [address] [place] [address] PCP - General Patient Care 03/11/19
== END 2024-10-05 13:10 | disposition home or self-care (01) ==
PROVIDERS: Emergency Provider Emergency Medicine; PCP Dentist General Practice
DX: M54.16 Radiculopathy, lumbar region (principal); R10.2 Pelvic and perineal pain
CPT/HCPCS: 73502; 99282; 99283

== ENCOUNTER → 2024-10-05 11:58 | Outpatient (BNV) | payer MEDICAID, SELFPAY | PROVIDERS: PCP Dentist General Practice; Visit Provider Radiology Diagnostic Radiology | DX: M25.551 Pain in right hip (principal) | CPT/HCPCS: 73502 ==

== ENCOUNTER 2025-02-26 22:51 | Emergency (ER) | payer MEDICAID, SELFPAY ==
--- NOTE | ~2025-02-26 | XR_ITS ---
CLINICAL HISTORY: cough 1 view chest x-ray Comparison: CR - XR CHEST 2V - 05/07/24 12:30 EST Findings: The lungs are clear. Normal size heart. No acute fracture. IMPRESSION: No consolidation. This document has been electronically signed by: Chad Berrios MD on 02/27/2025 00:00:23
[2025-02-26 22:58] VITALS: BP 142/81; PULSE 88; RESP 20; TEMP 36.9; O2SAT 100; BMI 38.7
[2025-02-27 03:36] VITALS: BP 127/75; PULSE 93; RESP 20; TEMP 37.3; O2SAT 99
[2025-02-27 03:38] LABS: Resp Syncy Virus RNA Qual PCR NEGATIVE (Negative); SARS COV2 PCR INHOUSE NEGATIVE (Negative)
--- NOTE | 2025-02-27 03:38 | ED_ITS ---
HPI - General Adult General Chief complaint: Upper Respiratory Symptoms Stated complaint: persistent cough Time Seen by Provider: 02/27/25 03:27 Source: patient Limitations: no limitations History of Present Illness ED Provider: Ketty Last PA-C HPI narrative: 34-year-old female with a history of hypertension presents with cough x3 months. Cough is dry and repetitive. Patient states she has excessive episodes of persisting coughing where it triggers her to vomit. Denies fever. Denies history of asthma. Denies tobacco use. Related Data Previous Rx's ?Medication ?Instructions ?Recorded acetaminophen 500 mg tablet 1,000 mg (2 x 500 mg) PO Q ID PRN 01/02/21 (Tylenol Extra Strength) fever or pain #14 tabs azithromycin 250 mg tablet See Rx Instructions PO .COM PLEX #6 01/02/21 tabs cefuroxime axetil 500 mg tablet 500 mg PO BID #20 tabs 01/03/21 codeine 10 mg-guaifenesin 100 mg/5 10 ml PO Q4-6H PRN cough #237 mL 01/03/21 mL oral liquid prednisone 20 mg tablet 40 mg (2 x 20 mg) PO DAILY # 10 tabs 01/03/21 doxycycline hyclate 100 mg tablet 100 mg PO Q12H 14 da ys #28 tabs 04/19/21 metronidazole 500 mg tablet 500 mg PO BID 14 days #28 tabs 04/19/21 lidocaine 5 % topical patch 1 patch topical DAILY #15 ea 01/03/22 cyclobenzaprine 5 mg tablet 5 mg PO BEDTIME PRN muscle spasm 09/04/22 #4 tabs ketorolac 10 mg tablet 10 mg PO Q6H PRN pain 5 days #20 09/04/22 tabs oxycodone 5 mg tablet 5 mg PO Q4H PRN pain #10 tab s 09/05/22 prednisone 20 mg tablet 60 mg (3 x 20 mg) PO DAILY 5 days 09/05/22 #15 tabs benzonatate 200 mg capsule 200 mg PO TID PRN cough #30 caps 12/30/22 cefuroxime axetil 500 mg tablet 500 mg PO BID 7 days # 14 tabs 12/30/22 acetaminophen 500 mg capsule 500 mg PO QID PRN pain #1 4 caps 03/31/23 cyclobenzaprine 10 mg tablet 10 mg PO TID PRN muscle s pasm #7 03/31/23 tabs levofloxacin 500 mg tablet 500 mg PO DAILY #6 tabs ibuprofen 600 mg tablet 600 mg PO Q6H PRN fever or p ain 09/19/23 #30 tabs losartan 50 mg tablet 50 mg PO DAILY #90 tabs 11/14 06/06 azithromycin 250 mg tablet See Rx Instructions PO .COM PLEX #6 05/07/24 tabs benzonatate 100 mg capsule 100 mg PO TID PRN cough #14 caps 05/07/24 oxycodone 5 mg tablet 5 mg PO Q6H PRN pain #20 tab s 07/23/24 lidocaine 5 % topical patch 1 patch topical DAILY #15 ea 10/05/24 naproxen 500 mg tablet 500 mg PO BID #14 tabs 10/05 prednisone 10 mg tablet See Rx Instructions .Route 0 10/05/24 .COMPLEX #15 tabs albuterol sulfate 90 mcg/actuation 2 puff inhalation Q 4-6H PRN 02/27/25 aerosol inhaler (Ventolin HFA) shortness of breath or wheezing #8.5 grams benzonatate 200 mg capsule 200 mg PO TID PRN cough #15 caps 02/27/25 prednisone 20 mg tablet 40 mg (2 x 20 mg) PO DAILY # 8 tabs 02/27/25 Allergies Allergy/AdvReac Type Severity Reaction Status Date / Time morphine Allergy Mild Rash Verified 02/26/25 23:01 oxycodone Allergy Rash Verified 02/26/25 23:01 [facility] Past Medical History Attestation statement: The following information was validated with the patient. Medical History Hypertension Surgical History No pertinent past surgical history No pertinent past surgical history Social History Social History Alcohol intake: current Alcohol intake frequency: holidays/special occasions only Alcohol type: wine Patient Tobacco Use Status: Never used Tobacco Advance Directives: No Advance Directives Information Provided: No Do you have a plan to hurt others: No Plan Physical Exam ED Vital Signs: Vital Signs - 24 hr 02/26/25 22:58 02/27/25 03:36 Temperature 98.5 F 99.1 F Pulse Rate 88 93 Respiratory Rate 20 20 Blood Pressure 142/81 H 127/75 Pulse Oximetry 100 99 Oxygen Delivery Method Room Air Room Air BMI result Body Mass Index 38.7 Const Other: Alert Orientation/consciousness: patient oriented x3 Resp Other: Nonlabored respirations, active bronchospasm cough no wheezing Cardio Other: Normal peripheral perfusion Skin Other: Warm dry no rash Neuro General: patient oriented x3, gait normal, no focal motor deficits and CN's II- XI intact bilaterally Psych Other: Cooperative Medical Decision Making Medical Decision Making [facility] Narrative: 34-year-old female with a history of hypertension presents with cough x3 months. Cough is dry and repetitive. Patient states she has excessive episodes of persisting coughing where it triggers her to vomit. Denies fever. Denies history of asthma. Denies tobacco use. Problem: Hypertension History: Per patient I have considered the following differential diagnoses: Chronic cough secondary to an RACHELE inhibitor, viral syndrome, bronchitis, pneumonia, Plan: Viral panel and chest x-ray obtained, chest x-ray is negative, viral panel pending. The patient has a bronchospasm type cough, we will be treating with steroid inhaler and Tessalon Perles. I reviewed her medication list, she is not on an RACHELE inhibitor. She may need to follow up with primary care to determine if she has developed asthma given how reactive her airway is for a prolonged period of time. I have independently reviewed the following tests: Labs: Viral panel negative Chest x-ray:Findings: The lungs are clear. Normal size heart. No acute fracture. IMPRESSION: No consolidation. Differential Diagnosis Differential Diagnoses: The differential diagnosis associated with the presentation includes See [facility] Admission/Observation Consideration of admission/observation: Escalation of care including admission/observation considered Not applicable Lab Data [facility] Lab Attestation statement: I reviewed the patient's lab results. Radiology Impression Discussion of test interpretation with radiology: I have reviewed the radiologist's reading. Discharge Plan Discharge Clinical Impression: Bronchospasm Patient Disposition: Home, Self-Care Instructions: Bronchospasm (ED) Additional Instructions: The chest x-ray was clear you do not have pneumonia. The viral panel was negative, you were tested for influenza COVID and RSV. You are being treated for bronchospasm type cough. See home care instructions. Use the albuterol as needed, take the steroid as directed, use the benzonatate capsules for cough as needed. You should follow up with primary care, given the duration of your symptoms, you require pulmonary function testing, you may have developed asthma. Prescriptions: New albuterol sulfate [Ventolin HFA] 90 mcg/actuation HFA aerosol inhaler 2 puff inhalation Q4-6H PRN (Reason: shortness of breath or wheezing) Qty: 8.5 0RF prednisone 20 mg tablet 40 mg PO DAILY Qty: 8 0RF benzonatate 200 mg capsule 200 mg PO TID PRN (Reason: cough) Qty: 15 0RF No Action azithromycin 250 mg tablet See Rx Instructions .ROUTE .COMPLEX Qty: 6 0RF Rx Instructions: take 500 mg today (day 1), then 250 mg for 4 days (days 2-5) acetaminophen [Tylenol Extra Strength] 500 mg tablet 1,000 mg PO QID PRN (Reason: fever or pain) Qty: 14 0RF prednisone 20 mg tablet 40 mg PO DAILY Qty: 10 0RF codeine-guaifenesin 10-100 mg/5 mL liquid 10 ml PO Q4-6H PRN (Reason: cough) Qty: 237 0RF cefuroxime axetil 500 mg tablet 500 mg PO BID Qty: 20 0RF metronidazole 500 mg tablet 500 mg PO BID 14 Days Qty: 28 0RF doxycycline hyclate 100 mg tablet 100 mg PO Q12H 14 Days Qty: 28 0RF lidocaine 5 % adhesive patch,medicated 1 patch topical DAILY Qty: 15 0RF Rx Instructions: leave on most painful area for up to 12 hrs ketorolac 10 mg tablet 10 mg PO Q6H PRN (Reason: pain) 5 Days Qty: 20 0RF Rx Instructions: Patient received Toradol in the emergency room. cyclobenzaprine 5 mg tablet 5 mg PO BEDTIME PRN (Reason: muscle spasm) Qty: 4 0RF prednisone 20 mg tablet 60 mg PO DAILY 5 Days Qty: 15 0RF oxycodone 5 mg tablet 5 mg PO Q4H PRN (Reason: pain) Qty: 10 0RF Rx Instructions: Patient may request partial fill; Partial Fill upon patient request. levofloxacin 500 mg tablet 500 mg PO DAILY Qty: 6 0RF cyclobenzaprine 10 mg tablet 10 mg PO TID PRN (Reason: muscle spasm) Qty: 7 0RF acetaminophen 500 mg capsule 500 mg PO QID PRN (Reason: pain) Qty: 14 0RF ibuprofen 600 mg tablet 600 mg PO Q6H PRN (Reason: fever or pain) Qty: 30 0RF losartan 50 mg tablet 50 mg PO DAILY Qty: 90 0RF azithromycin 250 mg tablet See Rx Instructions .ROUTE .COMPLEX Qty: 6 0RF Rx Instructions: For 250 mg dose pack: take 500 mg today (day 1), then 250 mg for 4 days (days 2-5) benzonatate 100 mg capsule 100 mg PO TID PRN (Reason: cough) Qty: 14 0RF oxycodone 5 mg tablet 5 mg PO Q6H PRN (Reason: pain) Qty: 20 0RF Rx Instructions: Partial Fill upon patient request. prednisone 10 mg tablet See Rx Instructions .ROUTE .COMPLEX Qty: 15 0RF Rx Instructions: 50mg (5 tabs) x1 day, then 40 mg (4 tabs) x1 day, then 30 mg (3 tabs) x1 day, then 20 mg (2 tabs) times 1 day, then 10 mg (1 tab) x1 day naproxen 500 mg tablet 500 mg PO BID Qty: 14 0RF lidocaine 5 % adhesive patch,medicated 1 patch topical DAILY Qty: 15 0RF Rx Instructions: leave on most painful area for up to 12 hrs benzonatate 200 mg capsule 200 mg PO TID PRN (Reason: cough) Qty: 30 0RF cefuroxime axetil 500 mg tablet 500 mg PO BID 7 Days Qty: 14 0RF Print Language: Hungarian
--- OUTSIDE RECORDS SUMMARY | 2025-02-27 04:03 | XMS_ITS | Clinical Summary ---
Author Organization [employer] Address [address] [place] [address] Care Team Providers Care Anatomic Pathology Assistant Name Role Phone Unavailable Primary Care Provider Unavailabl e Social History Tobacco Use Types Packs/Day Years Used Date Smoking Tobacco: Never Assessed Comments Unknown Sex and Gender Information Value Date Recorded Sex Assigned at Not on file Legal Sex Female 9:30 PM EDT Gender Identity Not on file Sexual Orientation Not on file Plan of Treatment Health Maintenance Due Date Last Done Comments Depression Screening 1990 Lipid Panel 1990 SDOH Screening 1990 Disability Screening 1990 Alcohol/Substance Use Screening 2002 Tobacco Screening 2002 Family Planning (PISQ) 2005 HPV Vaccines (1 - 3-dose series) 2005 Hepatitis C Screening 2008 Hepatitis B Vaccines (1 of 3 - 19+ 3-dose series) 2009 Pap Smear 2011 Cervical Cancer Screening 2020 HPV/Cotest 2020 COVID-19 Vaccine (1 - 2024-2 6 season) 2024 Influenza Vaccine (#1) 2024 12/24/2020 DTaP/Tdap/Td Vaccines (2 - T d or Tdap) 01/07/2031 01/07/2021 Zoster Vaccines (1 of 2) 2040 RSV Patients and Pa tients Aged 60 years or older (1 - 1-dose 75+ series) 2065 HIV Screening Completed 01/07/2021 HIB Vaccines Aged Out No longer eligi [...] to 49) Years Aged Out No longer eligi ble based on patient's age to complete this topic RSV under 20 months Aged Out No longe r eligible based on patient's age to complete this topic Rotavirus Vaccines Aged Out No longer eligible based on patient's age to complete this topic
--- OUTSIDE RECORDS SUMMARY | 2025-02-27 04:03 | XMS_ITS | Clinical Summary ---
Author Organization [facility] Prior to 08/13/24 Address [address] [place] [address] Care Team Providers Care Hood Maker Name Role Phone Pcp, Donovan Velazco MD Primary Care Provider Allergies Active Allergy Reactions Criticality Noted Date [...] age to complete this topic Care Teams Hood Maker Relationship Specialty Start Date End Date Pcp, Donovan Velazco MD [address] [place] [address] PCP - General Manager Construction 03/11/19
[2025-02-27 04:09] VITALS: BP 127/75; PULSE 93; RESP 20; TEMP 37.3; O2SAT 99
== END 2025-02-27 04:10 | disposition home or self-care (01) ==
LOC: HO.ED 02-27 03:59
PROVIDERS: Emergency Provider Emergency Medicine
DX: J98.01 Acute bronchospasm (principal); R05.9 Cough, unspecified; Z03.818 Encounter for observation for suspected exposure to other biological agents ruled out; I10 Essential (primary) hypertension
CPT/HCPCS: 71045; 87637; 99282; 99283

== ENCOUNTER → 2025-02-26 23:26 | Outpatient (BNV) | payer MEDICAID, SELFPAY | PROVIDERS: Visit Provider Radiology Diagnostic Radiology | DX: R05.9 Cough, unspecified (principal) | CPT/HCPCS: 71045 ==